=== PATIENT | female | born 1935 | race Asian ===

== ENCOUNTER 2020-04-26 14:57 | Inpatient (IN) | payer MEDICARE, MEDICAID ==
[~2020-04-26] VITALS: Ht 157.5 cm; Wt 63.7 kg
[2020-04-26 15:00] VITALS: BP 155/77
--- NOTE | 2020-04-26 15:09 | Emergency Room Report ---
History of Present Illness General Chief Complaint: Generalized Weakness Source: Patient, Family Member, EMS Present Illness HPI Patient presents with generalized weakness. This is been progressing over the last week to 2 weeks. She is not been eating well. She feels dehydrated and her mouth is dry. She takes medication for high blood pressure but denies any diabetes. She denies any fevers or chills. There is no nausea, vomiting or diarrhea. She denies pain but is unable to get about at her home. Family has been coming in to give her food but she is been refusing to eat. She denies cough or dysuria but says that she has problems voiding. She is not moved her bowels for several days. Granddaughter (Jennifer ) states appetite less 5 years after . Also unable to go to [employer] due to COVID. No sore throat, shortness of breath, joint pain, rashes, visual changes, dizziness, headache. Allergies: Coded Allergies: No Known Allergies (Unverified , 04/26/20) COVID-19 Screening Contact w/high risk pt: No Experienced COVID-19 symptoms?: No COVID-19 Testing performed SOAP SLABBER: No Patient History Past Medical History: see triage record Social History: Denies: smoking, alcohol use, drug use Social History Narrative lives by self. Family helps (GD = Jennifer) Reviewed Nursing Documentation: PMH: Agreed; PSxH: Agreed Nursing Documentation-PMH Past Medical History: No History, Except For Hx Hypertension: Yes Review of Systems All Other Systems: negative except mentioned in HPI Physical Exam Vital Signs Date Time Temp Pulse Resp B/P (MAP) Pulse Ox O2 Delivery O2 Flow Rate FiO2 04/26/20 14:53 97.3 83 18 155/77 (103) 98 Room Air Sp02 EP Interpretation: reviewed, normal General Appearance: well appearing, no apparent distress, GCS 15 Head: normocephalic, atraumatic Eyes: bilateral eye normal inspection, bilateral eye PERRL, bilateral eye EOMI ENT: normal pharynx, moist mucus membranes Neck: full range of motion, supple Respiratory: chest non-tender, lungs clear, normal breath sounds Cardiovascular #1: regular rate, rhythm, no edema Cardiovascular #2: 2+ radial (R) Gastrointestinal: normal inspection, normal bowel sounds, non tender, no mass, non-distended Genitourinary: no CVA tenderness Musculoskeletal: back normal, normal range of motion Neurologic: alert, supervisor photocomposition III-XII nml as tested, oriented - X2, DTRs symmetric, sensory intact, cerebellar normal, motor weakness - Generalized, speech normal Psychiatric: depressed affect Skin: no rash, warm/dry Medical Decision Making Diagnostic Impression: Primary Impression: UTI (urinary tract infection) Qualified Codes: N39.0 - Urinary tract infection, site not specified Additional Impressions: Failure to thrive Qualified Codes: R62.7 - Adult failure to thrive Dehydration Situational depression ER Course Patient presents with weakness and not eating. Differential includes sepsis, depression, electrolyte abnormality COVID-19, other occult infection, hypothyroidism amongst others. Evaluated EKG, chest x-ray, abdominal film and labs. Patient treated with normal saline bolus and IV hydration. 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 EKG no injury. Chest x-ray no infiltrates. CBC with low white count. Minimal anemia. CMP with elevated bilirubin and LDH. Lactate normal. TSH normal. Pyuria present on urinalysis. Rocephin given for UTI. Due to the complexity of this patient's disability the patient is admitted to [facility] for further evaluation. Discussed with admitting physician. Discussed with granddaughter. Laboratory Tests Test 04/26/20 15:20 04/26/20 15:45 04/26/20 16:29 Prothrombin Time 10.7 SEC (9.30-11.50) Prothrombin Time INR 1.0 (0.9-1.1) Activated Partial Thromboplast Time 19 SEC (23-33) L D-Dimer 0.58 mg/L FEU (0.00-0.49) H Sodium Level 139 MMOL/L (136-145) Potassium Level 3.7 MMOL/L (3.5-5.1) Chloride Level 107 MMOL/L (98-107) Carbon Dioxide Level 23 MMOL/L (21-32) Anion Gap 9 mmol/L (5-15) Blood Urea Nitrogen 9 mg/dL (7-18) Creatinine 0.7 MG/DL (0.55-1.30) Estimated Glomerular Filtration Rate > 60 mL/min (>60) Glucose Level 127 MG/DL (74-106) H Lactic Acid Level 0.90 mmol/L (0.4-2.0) Calcium Level 9.7 MG/DL (8.5-10.1) Magnesium Level 2.3 MG/DL (1.8-2.4) Ferritin 290 NG/ML (8-388) Total Bilirubin 1.7 MG/DL (0.2-1.0) H Direct Bilirubin 0.2 MG/DL (0.0-0.3) Aspartate Amino Transferase (AST) 44 U/L (15-37) H Alanine Aminotransferase (ALT) 24 U/L (12-78) Alkaline Phosphatase 49 U/L (46-116) Lactate Dehydrogenase 382 U/L (81-234) H Total Creatine Kinase 136 U/L (26-308) Troponin I 0.000 ng/mL (0.000-0.056) C-Reactive Protein, Quantitative < 0.4 mg/dL (0.00-0.90) Pro-B-Type Natriuretic Peptide 319 pg/mL (0-125) H Total Protein 8.4 G/DL (6.4-8.2) H Albumin 4.3 G/DL (3.4-5.0) Globulin 4.1 g/dL Albumin/Globulin Ratio 1.0 (1.0-2.7) Lipase 116 U/L (73-393) Thyroid Stimulating Hormone (TSH) 3.251 uiU/mL (0.358-3.740) Urine Color Pale yellow Urine Appearance Slightly cloudy Urine pH 7 (4.5-8.0) Urine Specific [place] 1.010 (1.005-1.035) Urine Protein 1+ (NEGATIVE) H Urine Glucose (UA) Negative (NEGATIVE) Urine Ketones Negative (NEGATIVE) Urine Blood 2+ (NEGATIVE) H Urine Nitrite Negative (NEGATIVE) Urine Bilirubin Negative (NEGATIVE) Urine Urobilinogen Normal MG/DL (0.0-1.0) Urine Leukocyte Esterase 3+ (NEGATIVE) H Urine RBC 0-2 /HPF (0 - 2) Urine WBC 10-15 /HPF (0 - 2) H Urine Squamous Epithelial Cells Occasional /LPF Urine Bacteria Occasional /HPF (NONE) White Blood Count 5.4 K/UL (4.8-10.8) Red Blood Count 3.72 M/UL (4.20-5.40) L Hemoglobin 12.2 G/DL (12.0-16.0) Hematocrit 36.4 % (37.0-47.0) L Mean Corpuscular Volume 98 FL (80-99) Mean Corpuscular Hemoglobin 32.9 PG (27.0-31.0) H Mean Corpuscular Hemoglobin Concent 33.6 G/DL (32.0-36.0) Red Cell Distribution Width 12.6 % (11.6-14.8) Platelet Count 142 K/UL (150-450) L Mean Platelet Volume 6.9 FL (6.5-10.1) Neutrophils (%) (Auto) 63.1 % (45.0-75.0) Lymphocytes (%) (Auto) 26.3 % (20.0-45.0) Monocytes (%) (Auto) 8.2 % (1.0-10.0) Eosinophils (%) (Auto) 1.2 % (0.0-3.0) Basophils (%) (Auto) 1.3 % (0.0-2.0) Erythrocyte Sedimentation Rate Pending Microbiology Date/Time Source Procedure Growth Status 04/26/20 15:20 Nasopharynx SARS-CoV-2 RdRp Gene Assay - Final Complete EKG Diagnostic Results Rate: normal Rhythm: NSR ST Segments: no acute changes - Nonspecific ST-T wave changes Rhythm Strip Diag. Results EP Interpretation: yes Rhythm: NSR, no PVC's, no ectopy Chest X-Ray Diagnostic Results Chest X-Ray Diagnostic Results : Chest X-Ray Ordered: Yes # of Views/Limited/Complete: 1 View Indication: Other EP Interpretation: Yes Interpretation: no consolidation, no effusion, no pneumothorax Impression: No acute disease Electronically Signed by: Electronically signed by Rolando Seaman MD Status: improved Disposition: ADMITTED INPATIENT Condition: Serious Rolando Seaman MD Apr 26, 2020 15:09
[2020-04-26] MEDS ORDERED: ATIVAN0.5 MG ORAL (15:23)
[2020-04-26] MEDS ORDERED: TRAZODONE HCL300 MG ORAL (15:23)
[2020-04-26 15:56] LABS: APPEARANCE,URINE SLIGHTLY CLOUDY; BILIRUBIN, URINE NEGATIVE (NEGATIVE); COLOR,URINE PALE YELLOW; GLUCOSE, URINE (UA) NEGATIVE (NEGATIVE); KETONES,URINE NEGATIVE (NEGATIVE); LEUKOCYTE ESTERASE ,URINE 3+ (NEGATIVE); NITRITE,URINE NEGATIVE (NEGATIVE); PH,URINE 7 (4.5-8.0); PROTEIN,URINE 1+ (NEGATIVE); UROBILINOGEN,URINE NORMAL MG/DL (0.0-1.0)
[2020-04-26 16:03] LABS: ANION GAP 9 mmol/L (5-15); BLOOD UREA NITROGEN 9 mg/dL (7-18); CALCIUM 9.7 MG/DL (8.5-10.1); CARBON DIOXIDE 23 MMOL/L (21-32); CHLORIDE 107 MMOL/L (98-107); CREATININE 0.7 MG/DL (0.55-1.30); POTASSIUM 3.7 MMOL/L (3.5-5.1); SODIUM 139 MMOL/L (136-145)
[2020-04-26 16:19] LABS: ALANINE AMINOTRANSFERASE 24 U/L (12-78); ALBUMIN 4.3 G/DL (3.4-5.0); ALKALINE PHOSPHATASE 49 U/L (46-116); ASPARTATE AMINO TRANSFERASE 44 U/L (15-37); BILIRUBIN,TOTAL 1.7 MG/DL (0.2-1.0); CREATINE KINASE 136 U/L (26-308); FERRITIN 290 NG/ML (8-388); LACTATE DEHYDROGENASE 382 U/L (81-234)
[2020-04-26 16:21] LABS: BILIRUBIN,DIRECT 0.2 MG/DL (0.0-0.3)
[2020-04-26 16:36] LABS: BASOPHILS % (AUTO) 1.3 % (0.0-2.0); EOSINOPHILS % (AUTO) 1.2 % (0.0-3.0); HEMATOCRIT 36.4 % (37.0-47.0); HEMOGLOBIN 12.2 G/DL (12.0-16.0); LYMPHOCYTES % (AUTO) 26.3 % (20.0-45.0); MEAN CORPUSCULAR VOLUME 98 FL (80-99); MONOCYTES % (AUTO) 8.2 % (1.0-10.0); NEUTROPHILS % (AUTO) 63.1 % (45.0-75.0); PLATELET COUNT 142 K/UL (150-450); RED BLOOD COUNT 3.72 M/UL (4.20-5.40); RED CELL DISTRIBUTION WIDTH 12.6 % (11.6-14.8); WHITE BLOOD COUNT 5.4 K/UL (4.8-10.8)
--- NOTE | 2020-04-26 16:39 | Diagnostic Imaging Report ---
EXAM: XR Chest, 1 View CLINICAL HISTORY: WEAK TECHNIQUE: Frontal view of the chest. COMPARISON: No relevant prior studies available. FINDINGS: Lungs: Mild accentuation of interstitial markings. No consolidation. Pleural space: Unremarkable. No pneumothorax. Heart: Large cardiomediastinal silhouette. Mediastinum: Large cardiomediastinal silhouette. Bones/joints: No acute fracture. IMPRESSION: Mild accentuation of interstitial markings. No consolidation.
[2020-04-26 17:00] VITALS: BP 152/78
[2020-04-26] MEDS ORDERED: cefTRIAXone 1 GM in NS 55 ML IVPB ONE (17:00)
--- NOTE | 2020-04-26 17:36 | Diagnostic Imaging Report ---
EXAM: CT Head Without Intravenous Contrast CLINICAL HISTORY: WEAK TECHNIQUE: Axial computed tomography images of the head/brain without intravenous contrast. CTDI is 53 mGy and DLP is 1072 mGy-cm. One or more of the following dose reduction techniques were used: automated exposure control, adjustment of the mA and/or kV according to patient size, use of iterative reconstruction technique. COMPARISON: No relevant prior studies available. FINDINGS: Brain: No intracranial hemorrhage or acute cortical infarct. Global parenchymal atrophy and chronic microvascular ischemic changes. Basal ganglia calcifications. Ventricles: Unremarkable. Bones/joints: Unremarkable. No fracture. Soft tissues: Unremarkable. Sinuses: Unremarkable as visualized. Mastoid air cells: Unremarkable as visualized. IMPRESSION: 1. No acute intracranial abnormality. 2. Global parenchymal atrophy and chronic microvascular ischemic changes.
[2020-04-26 18:00] VITALS: BP 150/60
[2020-04-26 20:00] VITALS: BP 143/62
[2020-04-26] MEDS: Heparin 5000 units/ml inj SUBQ SCH ×2 (21:00→21:52)
[2020-04-26] MEDS: D5 1/2NS 1,000 ML IV SCH (21:00)
[2020-04-27] VITALS: BP 100/64
[2020-04-27 04:00] VITALS: BP 132/81
[2020-04-27 07:55] LABS: BASOPHILS % (AUTO) 0.9 % (0.0-2.0); EOSINOPHILS % (AUTO) 2.5 % (0.0-3.0); HEMATOCRIT 36.2 % (37.0-47.0); HEMOGLOBIN 12.5 G/DL (12.0-16.0); LYMPHOCYTES % (AUTO) 40.3 % (20.0-45.0); MEAN CORPUSCULAR VOLUME 94 FL (80-99); MONOCYTES % (AUTO) 7.6 % (1.0-10.0); NEUTROPHILS % (AUTO) 48.6 % (45.0-75.0); PLATELET COUNT 151 K/UL (150-450); RED BLOOD COUNT 3.87 M/UL (4.20-5.40); RED CELL DISTRIBUTION WIDTH 11.9 % (11.6-14.8); WHITE BLOOD COUNT 4.3 K/UL (4.8-10.8)
[2020-04-27 08:00] VITALS: BP 150/58
[2020-04-27 08:27] LABS: ANION GAP 10 mmol/L (5-15); BLOOD UREA NITROGEN 6 mg/dL (7-18); CALCIUM 8.6 MG/DL (8.5-10.1); CARBON DIOXIDE 24 MMOL/L (21-32); CHLORIDE 108 MMOL/L (98-107); CREATININE 0.6 MG/DL (0.55-1.30); SODIUM 142 MMOL/L (136-145)
[2020-04-27] MEDS: Heparin 5000 units/ml inj SUBQ SCH ×2 (08:27→20:54)
[2020-04-27] MEDS ORDERED: TRAZODONE HCL50 MG ORAL (09:28)
[2020-04-27] MEDS ORDERED: ACETAMINOPHEN325 M1 ORAL (09:55)
[2020-04-27] MEDS ORDERED: VITAMIN D350 MC1 PO ×2 (09:55→11:31)
[2020-04-27] MEDS: D5 1/2NS 1,000 ML IV SCH (11:10)
[2020-04-27] MEDS ORDERED: MAGNESIUM OXID400 M2 PO (11:31)
[2020-04-27] MEDS ORDERED: TRIAMTERENE-HC1 EAC5 ORAL (11:31)
[2020-04-27] MEDS ORDERED: MYLANTA TONIGH355 ML PO (11:31)
[2020-04-27] MEDS ORDERED: ASPIRIN81 MG ORAL (11:31)
[2020-04-27] MEDS ORDERED: BELSOMRA15 MG PO (11:31)
[2020-04-27] MEDS ORDERED: URECHOLINE25 MG ORAL (11:31)
[2020-04-27] MEDS ORDERED: LOSARTAN POTASS50 MG ORAL (11:31)
[2020-04-27] MEDS ORDERED: NAMENDA10 MG ORAL (11:31)
[2020-04-27] MEDS ORDERED: MECLIZINE HCL12.5 MG ORAL (11:31)
[2020-04-27] MEDS ORDERED: ZOFRAN4 M3 ORAL (11:31)
[2020-04-27] MEDS ORDERED: BYSTOLIC2.5 MG ORAL (11:31)
[2020-04-27] MEDS ORDERED: ULORIC40 MG ORAL (11:31)
[2020-04-27] MEDS ORDERED: MINIPRESS1 MG PO (11:31)
[2020-04-27] MEDS ORDERED: AMITRIPTYLINE25 MG ORAL (11:31)
[2020-04-27] MEDS ORDERED: NAMZARIC 14 MG1 EACH PO (11:31)
[2020-04-27] MEDS ORDERED: LINZESS290 MCG PO (11:31)
[2020-04-27] MEDS ORDERED: ESOMEPRAZOLE MA40 MG PO (11:31)
[2020-04-27] MEDS ORDERED: FOSAMAX70 MG ORAL (11:31)
[2020-04-27] MEDS ORDERED: LEVOCETIRIZINE D5 MG ORAL (11:31)
[2020-04-27] MEDS ORDERED: AMLODIPINE BESY10 MG ORAL (11:31)
[2020-04-27] MEDS ORDERED: PAZEO2.5 ML OP (11:31)
[2020-04-27] MEDS ORDERED: CREON DR 36,001 EACH PO (11:31)
[2020-04-27] MEDS ORDERED: BACLOFEN10 MG ORAL (11:31)
[2020-04-27] MEDS ORDERED: VASCEPA1 GM PO (11:31)
[2020-04-27] MEDS ORDERED: ACYCLOVIR400 MG ORAL (11:31)
[2020-04-27] MEDS ORDERED: CRESTOR20 MG ORAL (11:31)
[2020-04-27] MEDS ORDERED: LORAZEPAM I2 MG/1 ML ORAL (11:31)
[2020-04-27] MEDS ORDERED: CATAPRES0.1 MG ORAL (11:31)
[2020-04-27] MEDS ORDERED: MEGESTROL ACETA40 MG PO (11:31)
[2020-04-27] MEDS ORDERED: LORazepam 0.5mg tab ORAL PRN (11:45)
[2020-04-27 12:00] VITALS: BP 155/65
[2020-04-27] MEDS: Bethanechol 25mg Tab ORAL SCH ×2 (12:22→18:36)
--- NOTE | 2020-04-27 13:00 | History and Physical Report ---
DATE OF ADMISSION: 04/26/2020 DATE AND TIME SEEN: 04/27/2020 at 10 a.m. CONSULTANTS: 1. Twin Flores MD. 2. Don Mercado MD. 3. Bjorn De La Cruz MD. CHIEF COMPLAINT: Failure to thrive, UTI. BRIEF HISTORY: This is an 85-year-old female, who lives at home, presented with above-mentioned diagnosis to [facility] and admitted to medical floor. Currently, calm in room, sleepy, not talking much. REVIEW OF SYSTEMS: Unavailable. PAST MEDICAL HISTORY: Hypertension. PAST SURGICAL HISTORY: Unknown. ALLERGIES: Denies. MEDICATIONS: Include heparin, clonidine, Tylenol, and ceftriaxone. SOCIAL HISTORY: Unable to obtain. PHYSICAL EXAMINATION: GENERAL: Sleeping in bed. Unable to assess orientation. VITAL SIGNS: Temperature 97 degrees, pulse 70, respirations 18, and blood pressure . CARDIOVASCULAR: No murmur. LUNGS: Distant and clear. ABDOMEN: Bowel sound positive. Nontender. Nondistended. EXTREMITIES: No cyanosis, clubbing, or edema. NEUROLOGIC: The patient moves all extremities, slightly weak. LABORATORY AND DIAGNOSTIC DATA: Labs at this time show white count 4.3, otherwise CBC is normal. BMP show potassium 3.0, chloride 108, glucose 160. AST 44, albumin 4.3. Urinalysis shows 2+ blood, 3+ leukocyte esterase. ASSESSMENT: 1. Failure to thrive. 2. Urinary tract infection. 3. Diabetes. 4. Hypertension. 5. Hypokalemia. PLAN: 1. Resume home medications. 2. Blood pressure and blood sugar control. 3. Dietary followup. 4. PT evaluation. 5. CBC and BMP in the morning. 6. . Dakota Calvin D.O. DR: CHEL JOB#: [id number] CC:
[2020-04-27] MEDS ORDERED: Varibar Honey 250ml MC PRN (13:30)
[2020-04-27] MEDS ORDERED: Varibar Nectar 240ml MC PRN (13:30)
[2020-04-27] MEDS ORDERED: Varibar Thin Liquid powder 148gm MC PRN (13:30)
[2020-04-27] MEDS ORDERED: Varibar Pudding 230ml MC PRN (13:30)
--- NOTE | 2020-04-27 13:40 | Consultation ---
History of Present Illness General Date patient seen: Apr 27, 2020 Chief Complaint: Generalized Weakness Present Illness HPI 85 yo F with hx of HTN presented to ED on 04/26/20 with 2 weeks of worsening generalized weakness and poor appetite; feels dehydrated and her mouth was dry Denied f/c, n/v/d,cough, dysuria Allergies: Coded Allergies: No Known Allergies (Unverified , 04/26/20) Medication History Scheduled Acyclovir* (Acyclovir*), 400 MG ORAL FOUR TIMES A DAY, (Reported) Alendronate Sodium* (Fosamax*), 70 MG ORAL ONCE A WEEK, (Reported) Amitriptyline HCl (Elavil*), 10 MG ORAL BEDTIME, (Reported) Amlodipine Besylate* (Amlodipine Besylate*), 10 MG ORAL DAILY, (Reported) Aspirin* (Aspirin*), 81 MG ORAL DAILY, (Reported) Baclofen* (Baclofen*), 10 MG ORAL PRN, (Reported) Bethanechol Chl (Bethanechol Chloride), 25 MG ORAL THREE TIMES A DAY, (Reported) Calcium Carb/Mag Hydrox/Simeth (Mylanta Tonight 800-270-80/10), 355 ML PO PRN, (Reported) Cholecalciferol (Vitamin D3) (Vitamin D3), 2 TAB PO DAILY, (Reported) Cholecalciferol (Vitamin D3) (Vitamin D3), 50 MCG PO DAILY, (Reported) Esomeprazole Magnesium (Esomeprazole Magnesium), 40 MG PO DAILY, (Reported) Febuxostat (Uloric), 40 MG ORAL DAILY, (Reported) Icosapent Ethyl (Vascepa), 1 GM PO BID, (Reported) Levocetirizine Dihydrochloride (Levocetirizine Dihydrochloride), 5 MG ORAL DAILY, (Reported) Linaclotide (Linzess), 290 MCG PO HS, (Reported) Lipase/Protease/Amylase (Creon Dr 36,000 Units Capsule), 1 EACH PO EVERY 8 HOURS, (Reported) Lorazepam (Lorazepam Intensol), 0.5 MG ORAL Q4HR, (Reported) Losartan Potassium* (Losartan Potassium*), 50 MG ORAL DAILY, (Reported) Magnesium Oxide (Magnesium Oxide), 400 MG PO BEDTIME, (Reported) Meclizine Hcl* (Meclizine*), 12.5 MG ORAL THREE TIMES A DAY, (Reported) Megestrol Acetate (Megestrol Acetate), 40 MG PO DAILY, (Reported) Memantine Hcl* (Namenda*), 10 MG ORAL DAILY, (Reported) Nebivolol Hcl* (Bystolic*), 5 MG ORAL DAILY, (Reported) Olopatadine HCl (Pazeo), 2.5 ML OP DAILY, (Reported) Ondansetron* (Zofran*), 4 MG ORAL DAILY, (Reported) Prazosin Hcl* (Minipress*), 1 MG PO BEDTIME, (Reported) Rosuvastatin Calcium* (Crestor*), 20 MG ORAL HS, (Reported) Suvorexant (Belsomra), 15 MG PO HS, (Reported) Trazodone Hcl* (Desyrel*), 50 MG ORAL BEDTIME, (Reported) Triamterene/Hydrochlorothiazide* (Dyazide 37.5-25 Mg Tab*), 1 TAB ORAL DAILY, (Reported) Scheduled PRN Acetaminophen* (Acetaminophen 325MG Tablet*), 325 MG ORAL Q4H PRN for Temp >100.5, (Reported) Clonidine Hcl* (Catapres*), 0.1 MG ORAL Q12HR PRN for For High Blood Pressure, (Reported) Lorazepam* (Ativan*), 0.5 MG ORAL Q8HR PRN for For Anxiety, (Reported) Miscellaneous Medications Memantine HCl/Donepezil HCl (Namzaric 14 mg-10 mg Capsule), 1 EACH PO, (Reported) Discontinued Medications Trazodone Hcl (Trazodone Hcl), Unknown Dose ORAL BEDTIME, (Reported) Discontinued Reason: Prescription changed Patient History Healthcare decision maker Resuscitation status Advanced Directive on File Patient History Narrative PMhx: as above Shx: Denies: smoking, alcohol use, drug use Fhx: non contributory Review of Systems All Other Systems: negative except mentioned in HPI Physical Exam Physical Exam Narrative GENERAL: Sleeping in bed. Unable to assess orientation. CARDIOVASCULAR: No murmur. LUNGS: Distant and clear. ABDOMEN: Bowel sound positive. Nontender. Nondistended. EXTREMITIES: No cyanosis, clubbing, or edema. NEUROLOGIC: The patient moves all extremities, slightly weak. Last 24 Hour Vital Signs Date Time Temp Pulse Resp B/P (MAP) Pulse Ox O2 Delivery O2 Flow Rate FiO2 04/27/20 12:00 97.9 75 18 155/65 (95) 96 04/27/20 12:00 68 04/27/20 09:00 Room Air 04/27/20 08:00 97.7 70 18 150/58 (88) 94 04/27/20 08:00 72 04/27/20 04:00 61 04/27/20 04:00 98.2 64 18 132/81 (98) 95 04/27/20 02:00 97.2 04/27/20 00:00 97.7 73 18 100/64 (76) 94 04/27/20 00:00 66 04/26/20 20:37 69 04/26/20 20:25 Room Air 04/26/20 20:00 97.2 68 18 143/62 (89) 94 04/26/20 18:01 Room Air 04/26/20 18:00 97.9 78 17 150/60 (90) 96 04/26/20 17:45 97.8 81 19 152/78 99 Room Air 04/26/20 17:00 97.8 81 19 152/78 99 Room Air 04/26/20 15:00 97.3 83 18 155/77 98 Room Air 04/26/20 15:00 83 18 Room Air 04/26/20 14:53 97.3 83 18 155/77 (103) 98 Room Air Intake and Output 04/26/20 04/27/20 19:00 07:00 Intake Total 100 ml 780 ml Balance 100 ml 780 ml Intake Oral 100 ml 300 ml IV Total 480 ml # Voids 2 Laboratory Tests Test 04/26/20 15:20 04/26/20 15:45 04/26/20 16:29 04/27/20 07:24 Prothrombin Time 10.7 SEC (9.30-11.50) Prothromb Time International Ratio 1.0 (0.9-1.1) Activated Partial Thromboplast Time 19 SEC (23-33) L D-Dimer 0.58 mg/L FEU (0.00-0.49) H Sodium Level 139 MMOL/L (136-145) 142 MMOL/L (136-145) Potassium Level 3.7 MMOL/L (3.5-5.1) 3.0 MMOL/L (3.5-5.1) L Chloride Level 107 MMOL/L (98-107) 108 MMOL/L (98-107) H Carbon Dioxide Level 23 MMOL/L (21-32) 24 MMOL/L (21-32) Anion Gap 9 mmol/L (5-15) 10 mmol/L (5-15) Blood Urea Nitrogen 9 mg/dL (7-18) 6 mg/dL (7-18) L Creatinine 0.7 MG/DL (0.55-1.30) 0.6 MG/DL (0.55-1.30) Estimat Glomerular Filtration Rate > 60 mL/min (>60) > 60 mL/min (>60) Glucose Level 127 MG/DL (74-106) H 160 MG/DL (74-106) H Lactic Acid Level 0.90 mmol/L (0.4-2.0) Calcium Level 9.7 MG/DL (8.5-10.1) 8.6 MG/DL (8.5-10.1) Magnesium Level 2.3 MG/DL (1.8-2.4) Ferritin 290 NG/ML (8-388) Total Bilirubin 1.7 MG/DL (0.2-1.0) H Direct Bilirubin 0.2 MG/DL (0.0-0.3) Aspartate Amino Transf (AST/SGOT) 44 U/L (15-37) H Alanine Aminotransferase (ALT/SGPT) 24 U/L (12-78) Alkaline Phosphatase 49 U/L (46-116) Lactate Dehydrogenase 382 U/L (81-234) H Total Creatine Kinase 136 U/L (26-308) Troponin I 0.000 ng/mL (0.000-0.056) C-Reactive Protein, Quantitative < 0.4 mg/dL (0.00-0.90) Pro-B-Type Natriuretic Peptide 319 pg/mL (0-125) H Total Protein 8.4 G/DL (6.4-8.2) H Albumin 4.3 G/DL (3.4-5.0) Globulin 4.1 g/dL Albumin/Globulin Ratio 1.0 (1.0-2.7) Lipase 116 U/L (73-393) Thyroid Stimulating Hormone (TSH) 3.251 uiU/mL (0.358-3.740) Urine Color Pale yellow Urine Appearance Slightly cloudy Urine pH 7 (4.5-8.0) Urine Specific [place] 1.010 (1.005-1.035) Urine Protein 1+ (NEGATIVE) H Urine Glucose (UA) Negative (NEGATIVE) Urine Ketones Negative (NEGATIVE) Urine Blood 2+ (NEGATIVE) H Urine Nitrite Negative (NEGATIVE) Urine Bilirubin Negative (NEGATIVE) Urine Urobilinogen Normal MG/DL (0.0-1.0) Urine Leukocyte Esterase 3+ (NEGATIVE) H Urine RBC 0-2 /HPF (0 - 2) Urine WBC 10-15 /HPF (0 - 2) H Urine Squamous Epithelial Cells Occasional /LPF Urine Bacteria Occasional /HPF (NONE) White Blood Count 5.4 K/UL (4.8-10.8) 4.3 K/UL (4.8-10.8) L Red Blood Count 3.72 M/UL (4.20-5.40) L 3.87 M/UL (4.20-5.40) L Hemoglobin 12.2 G/DL (12.0-16.0) 12.5 G/DL (12.0-16.0) Hematocrit 36.4 % (37.0-47.0) L 36.2 % (37.0-47.0) L Mean Corpuscular Volume 98 FL (80-99) 94 FL (80-99) Mean Corpuscular Hemoglobin 32.9 PG (27.0-31.0) H 32.3 PG (27.0-31.0) H Mean Corpuscular Hemoglobin Concent 33.6 G/DL (32.0-36.0) 34.5 G/DL (32.0-36.0) Red Cell Distribution Width 12.6 % (11.6-14.8) 11.9 % (11.6-14.8) Platelet Count 142 K/UL (150-450) L 151 K/UL (150-450) Mean Platelet Volume 6.9 FL (6.5-10.1) 6.3 FL (6.5-10.1) L Neutrophils (%) (Auto) 63.1 % (45.0-75.0) 48.6 % (45.0-75.0) Lymphocytes (%) (Auto) 26.3 % (20.0-45.0) 40.3 % (20.0-45.0) Monocytes (%) (Auto) 8.2 % (1.0-10.0) 7.6 % (1.0-10.0) Eosinophils (%) (Auto) 1.2 % (0.0-3.0) 2.5 % (0.0-3.0) Basophils (%) (Auto) 1.3 % (0.0-2.0) 0.9 % (0.0-2.0) Erythrocyte Sedimentation Rate 43 MM/HR (0-30) H Microbiology Date/Time Source Procedure Growth Status 04/26/20 15:45 Urine,Clean Catch Urine Culture - Preliminary Gram Negative Binu Resulted 04/26/20 15:20 Nasopharynx SARS-CoV-2 RdRp Gene Assay - Final Complete Height (Feet): 5 Height (Inches): 2.00 Weight (Pounds): 115 Medications Current Medications Medications (Trade) Dose Ordered Sig/Carl Route PRN Reason Start Time Stop Time Status Last Admin Dose Admin Acetaminophen (Tylenol) 325 mg Q4H PRN ORAL Temp >100.5 04/27/20 11:45 05/27/20 11:44 Acetaminophen (Tylenol) 650 mg Q4H PRN ORAL Mild Pain (Pain Scale 1-3) 04/26/20 18:30 05/26/20 18:29 04/27/20 01:30 Alendronate Sodium (Fosamax) 70 mg ONCE A WEEK ORAL 04/28/20 06:30 05/28/20 06:29 Amitriptyline HCl (Elavil) 10 mg BEDTIME ORAL 04/27/20 21:00 05/27/20 20:59 Amlodipine Besylate (Norvasc) 10 mg DAILY ORAL 04/28/20 09:00 05/28/20 08:59 Amylase/Lipase/ Protease (Jarret JC 36,000 units cap) 1 ea BEFORE MEALS ORAL 04/27/20 16:30 07/26/20 16:29 Aspirin (ASA) 81 mg DAILY ORAL 04/28/20 09:00 06/12/20 08:59 Baclofen (Lioresal) 10 mg DAILYPRN PRN ORAL Muscle Spasm 04/27/20 12:15 05/27/20 12:14 Bethanechol Chloride (Urecholine) 25 mg THREE TIMES A DAY ORAL 04/27/20 13:00 05/27/20 12:59 04/27/20 12:22 Ceftriaxone Sodium 1 gm/ Dextrose 55 ml @ 110 mls/hr Q24H IVPB 04/27/20 17:00 05/04/20 16:59 Clonidine HCl (Catapres Tab) 0.1 mg QID PRN ORAL For High Blood Pressure 04/26/20 19:30 07/25/20 19:29 Dextrose/Sodium Chloride 1,000 ml @ 60 mls/hr [id number] IV 04/26/20 18:30 05/26/20 18:29 04/27/20 11:10 Heparin Sodium (Porcine) (Heparin 5000 units/ml) 5,000 units EVERY 12 HOURS SUBQ 04/26/20 21:00 06/10/20 20:59 04/26/20 21:52 Linaclotide (Linzess) 290 mcg DAILY ORAL 04/27/20 14:00 07/26/20 13:59 Lorazepam (Ativan) 0.5 mg Q8H PRN ORAL For Anxiety 04/27/20 11:45 05/04/20 11:44 Losartan Potassium (Cozaar) 50 mg DAILY ORAL 04/28/20 09:00 05/28/20 08:59 Magnesium Oxide (Mag-Ox 400mg) 400 mg BEDTIME ORAL 04/27/20 21:00 05/27/20 20:59 Megestrol Acetate (Megace) 40 mg DAILY ORAL 04/28/20 09:00 05/03/20 08:59 Memantine (Namenda) 10 mg DAILY ORAL 04/28/20 09:00 05/28/20 08:59 Nebivolol (Bystolic) 5 mg DAILY ORAL 04/28/20 09:00 05/28/20 08:59 Ondansetron HCl (Zofran) 4 mg DAILY ORAL 04/28/20 09:00 05/28/20 08:59 Prazosin HCl (Minipress) 1 mg BEDTIME ORAL 04/27/20 21:00 05/27/20 20:59 Trazodone HCl (Desyrel) 50 mg BEDTIME ORAL 04/27/20 21:00 05/27/20 20:59 Triamterene/HCTZ (Dyazide) 1 cap DAILY ORAL 04/28/20 09:00 05/28/20 08:59 Assessment/Plan Assessment/Plan: Abx: Ceftriaxone 04/26- Assessment: COVID19 neg x1 (04/26 rapid COVID PCR neg) -04/26 CXR: Mild accentuation of interstitial markings. No consolidation. Pyuria/bacteriuria- ?UTI -u/a wbc 10-25, nit neg, leuk +3; ucx <10k GNR Afebrile No leukocytosis FTT Generalized weakness -CT head: No acute intracranial abnormality. Global parenchymal atrophy and chronic microvascular ischemic changes. HTN Plan: -Continue empiriC Ceftriaxone #2/3 -f/u cx -Monitor CBC/CMP, temperatures Thank you for consulting [facility]. Will continue to follow along with you. Discussed gilda UNDERWOOD. Bozena Mosley M.D. Apr 27, 2020 13:40
--- NOTE | 2020-04-27 13:45 | Consultation ---
DATE OF CONSULTATION: 04/27/2020 CHIEF COMPLAINT: Failure to thrive. HISTORY OF PRESENT ILLNESS: Most of history per chart. The patient is not very good to communicate, comes from [facility] with mainly failure to thrive. Since admission, the patient was found to have a urinary tract infection. The patient is apparently not bed-bounded, walking around the hospital. PAST MEDICAL HISTORY: Hypertension. ALLERGIES: No known drug allergies. MEDICATIONS: Please see medication reconciliation list. SOCIAL HISTORY: The patient denies any recent tobacco, alcohol, or drug abuse. FAMILY HISTORY: Noncontributory. REVIEW OF SYSTEMS: Limited. PHYSICAL EXAMINATION: VITAL SIGNS: Temperature 97.7, pulse 70, respirations 18, blood pressure is . HEENT: Normocephalic and atraumatic. Sclerae anicteric. NECK: Supple. No evidence of obvious lymphadenopathy. CARDIOVASCULAR: Regular rate and rhythm. Plus S1 and S2. LUNGS: Decreased breath sounds bilaterally based on the supine exam. ABDOMEN: Soft and nontender. No rebound. No guarding. No peritoneal sign. EXTREMITIES: No cyanosis, no clubbing, no edema. LABORATORY DATA: White count 4.3, hemoglobin 12, hematocrit 36, platelet count 151,000. ASSESSMENT AND PLAN: The patient is an 85-year-old [facility] patient with UTI and failure to thrive. Plan to treat UTI with ceftriaxone. Order swallow evaluation. Calorie count. Consider feeding tube if needed. I want to thank, Dr. Dakota Calvin for this kind referral. Bjorn De La Cruz M.D. DR: Dale JOB#: [id number] CC: Dakota Calvin D.O.
[2020-04-27 15:58] VITALS: BP 153/59
[2020-04-27] MEDS: Creon DR 36,000 units cap ORAL SCH (16:28)
[2020-04-27] MEDS: cefTRIAXone 1 GM in D5W 55 ML IVPB SCH (16:29)
--- NOTE | 2020-04-27 16:29 | Consultation ---
Consult Note Consult Note I am asked to evaluate the patient at the request of Dr. Calvin fluid and electrolyte management Emergency room note: Patient presents with generalized weakness. This is been progressing over the last week to 2 weeks. She is not been eating well. She feels dehydrated and her mouth is dry. She takes medication for high blood pressure but denies any diabetes. She denies any fevers or chills. There is no nausea, vomiting or diarrhea. She denies pain but is unable to get about at her home. Family has been coming in to give her food but she is been refusing to eat. She denies cough or dysuria but says that she has problems voiding. She is not moved her bowels for several days. Granddaughter (Jennifer ) states appetite less 5 years after . Also unable to go to [facility] due to COVID. Allergies: No Known Allergies (Unverified , 04/26/20) COVID-19 Screening Contact w/high risk pt: No Experienced COVID-19 symptoms?: No COVID-19 Testing performed TYPE MAPPER: No Past Medical History: No History, Except For Hx Hypertension: Yes Vital Signs Date Time Temp Pulse Resp B/P (MAP) Pulse Ox O2 Delivery O2 Flow Rate FiO2 04/26/20 14:53 97.3 83 18 155/77 (103) 98 Room Air GENERAL: Sleeping in bed. Unable to assess orientation. CARDIOVASCULAR: No murmur. LUNGS: Distant and clear. ABDOMEN: Bowel sound positive. Nontender. Nondistended. EXTREMITIES: No cyanosis, clubbing, or edema. NEUROLOGIC: The patient moves all extremities, slightly weak. . Assessment/Plan Imp: Dehydration, hypokalemia UTI Failure to thrive History of diabetes mellitus History of hypertension SUgg: Slow hydration Adjust blood pressure medication with proper parameters Potassium supplement Monitor electrolytes Per consultants Maximilian Guillen MD Apr 27, 2020 16:29
[2020-04-27] MEDS: D5 1/2NS w/KCl 40meq 1000ml 1,000 ML IV SCH (18:35)
[2020-04-27] MEDS: Docusate 100mg cap ORAL SCH (18:35)
[2020-04-27 20:00] VITALS: BP 140/56
[2020-04-27] MEDS: TraZODone 50mg tab ORAL SCH (20:52)
[2020-04-27] MEDS ORDERED: Magnesium Oxide 400mg tab ORAL SCH (21:00)
[2020-04-28] VITALS: BP 143/58
[2020-04-28 04:00] VITALS: BP 136/60
[2020-04-28] MEDS: Creon DR 36,000 units cap ORAL SCH ×3 (06:16→16:30)
[2020-04-28 07:09] LABS: BASOPHILS % (AUTO) 1.3 % (0.0-2.0); HEMATOCRIT 34.9 % (37.0-47.0); HEMOGLOBIN 11.9 G/DL (12.0-16.0); LYMPHOCYTES % (AUTO) 41.3 % (20.0-45.0); MEAN CORPUSCULAR VOLUME 94 FL (80-99); MONOCYTES % (AUTO) 8.9 % (1.0-10.0); NEUTROPHILS % (AUTO) 45.4 % (45.0-75.0); PLATELET COUNT 153 K/UL (150-450); RED CELL DISTRIBUTION WIDTH 12.1 % (11.6-14.8); WHITE BLOOD COUNT 4.9 K/UL (4.8-10.8)
[2020-04-28 08:00] VITALS: BP 159/75
[2020-04-28 08:15] LABS: ALANINE AMINOTRANSFERASE 21 U/L (12-78); ALBUMIN 3.6 G/DL (3.4-5.0); ALBUMIN/GLOBULIN RATIO 1.1 (1.0-2.7); ALKALINE PHOSPHATASE 46 U/L (46-116); ANION GAP 12 mmol/L (5-15); ASPARTATE AMINO TRANSFERASE 23 U/L (15-37); BILIRUBIN,TOTAL 1.1 MG/DL (0.2-1.0); BLOOD UREA NITROGEN 7 mg/dL (7-18); CALCIUM 8.7 MG/DL (8.5-10.1); CARBON DIOXIDE 21 MMOL/L (21-32); CHLORIDE 111 MMOL/L (98-107); CREATININE 0.6 MG/DL (0.55-1.30); SODIUM 143 MMOL/L (136-145)
[2020-04-28 08:19] LABS: BILIRUBIN,DIRECT 0.2 MG/DL (0.0-0.3)
[2020-04-28 08:20] LABS: CHOLESTEROL 138 MG/DL (< 200); HDL CHOLESTEROL 40 MG/DL (40-60); TRIGLYCERIDES 115 MG/DL (30-150)
[2020-04-28 08:23] LABS: GAMMA GLUTAMYL TRANSPEPTIDASE 30 U/L (5-85)
[2020-04-28] MEDS ORDERED: Triamterene/Hctz 37.5/25 cap ORAL SCH (09:00)
[2020-04-28] MEDS ORDERED: Bystolic 2.5mg Tab ORAL SCH (09:00)
[2020-04-28] MEDS: Heparin 5000 units/ml inj SUBQ SCH ×2 (09:00→20:41)
--- NOTE | 2020-04-28 09:16 | General Progress Note ---
Subjective ROS Limited/Unobtainable: No Allergies: Coded Allergies: No Known Allergies (Unverified , 04/26/20) Objective Last 24 Hour Vital Signs Date Time Temp Pulse Resp B/P (MAP) Pulse Ox O2 Delivery O2 Flow Rate FiO2 04/28/20 08:00 97.8 77 17 159/75 (103) 96 04/28/20 04:00 97.5 61 18 136/60 (85) 97 04/28/20 04:00 62 04/28/20 00:00 60 04/28/20 00:00 96.8 63 18 143/58 (86) 95 04/27/20 21:00 Room Air 04/27/20 20:00 65 04/27/20 20:00 97.9 64 17 140/56 (84) 95 04/27/20 16:00 83 04/27/20 15:58 97.5 71 18 153/59 (90) 96 04/27/20 12:00 97.9 75 18 155/65 (95) 96 04/27/20 12:00 68 Intake and Output 04/27/20 04/28/20 19:00 07:00 Intake Total 680.8 ml 680 ml Balance 680.8 ml 680 ml Intake Oral 610 ml 130 ml IV Total 70.8 ml 550 ml # Voids 5 1 Laboratory Tests 04/28/20 06:22: White Blood Count 4.9, Red Blood Count 3.70L, Hemoglobin 11.9L, Hematocrit 34.9L , Mean Corpuscular Volume 94, Mean Corpuscular Hemoglobin 32.1H, Mean Corpuscu lar Hemoglobin Concent 34.0, Red Cell Distribution Width 12.1, Platelet Count 153, Mean Platelet Volume 6.0L, Neutrophils (%) (Auto) 45.4, Lymphocytes (%) (Auto) 41.3, Monocytes (%) (Auto) 8.9, Eosinophils (%) (Auto) 3.0, Basophils (%) (Auto) 1.3, Sodium Level 143, Potassium Level 4.0, Chloride Level 111H, Carbon Dioxide Level 21, Anion Gap 12, Blood Urea Nitrogen 7, Creatinine 0.6, Estimat Glomerular Filtration Rate > 60, Glucose Level 106, Hemoglobin A1c 5.7, Uric Acid 2.8, Calcium Level 8.7, Phosphorus Level 3.0, Magnesium Level 2.0, Total Bilirubin 1.1H, Direct Bilirubin 0.2, Gamma Glutamyl Transpeptidase 30, Aspartate Amino Transf (AST/SGOT) 23, Alanine Aminotransferase (ALT/SGPT) 21, Alkaline Phosphatase 46, C-Reactive Protein, Quantitative < 0.4, Pro-B-Type Natriuretic Peptide 150H, Total Protein 6.9, Albumin 3.6, Globulin 3.3, Albumin/Globulin Ratio 1.1, Triglycerides Level 115, Cholesterol Level 138, LDL Cholesterol 62, HDL Cholesterol 40, Cholesterol/HDL Ratio 3.5, Vitamin B12 Level 502, Folate 10.5, Thyroid Stimulating Hormone (TSH) 3.415, Free Thyroxine 1.34 Height (Feet): 5 Height (Inches): 2.00 Weight (Pounds): 115 General Appearance: alert EENT: PERRL/EOMI Neck: supple Cardiovascular: normal rate Respiratory/Chest: accessory muscle use Abdomen: normal bowel sounds, non tender, soft Extremities: non-tender Assessment/Plan Problem List: (1) Failure to thrive SNOMED: 09826003 Qualifiers: Qualified Codes: R62.7 - Adult failure to thrive (2) UTI (urinary tract infection) ICD Codes: N39.0 - Urinary tract infection, site not specified SNOMED: 74899854 Qualifiers: Qualified Codes: N39.0 - Urinary tract infection, site not specified (3) Dehydration ICD Codes: E86.0 - Dehydration SNOMED: 98835671 Assessment/Plan: passed swallow eval fu calorie count abx will fu Bjorn De La Cruz MD Apr 28, 2020 09:16
[2020-04-28] MEDS: Aspirin Baby 81mg ORAL SCH (09:35)
[2020-04-28] MEDS: Bethanechol 25mg Tab ORAL SCH ×3 (09:35→17:33)
[2020-04-28] MEDS: Docusate 100mg cap ORAL SCH ×3 (09:35→17:33)
[2020-04-28] MEDS: Losartan 50mg tab ORAL SCH (09:35)
[2020-04-28] MEDS: Memantine 10mg tab ORAL SCH (09:36)
[2020-04-28 11:31] VITALS: BP 144/60
[2020-04-28] MEDS: D5 1/2NS w/KCl 40meq 1000ml 1,000 ML IV SCH (13:24)
--- NOTE | 2020-04-28 13:30 | General Progress Note ---
Subjective Constitutional: Reports: weakness Allergies: Coded Allergies: No Known Allergies (Unverified , 04/26/20) All Systems: reviewed and negative except above Subjective calm in bed Objective Last 24 Hour Vital Signs Date Time Temp Pulse Resp B/P (MAP) Pulse Ox O2 Delivery O2 Flow Rate FiO2 04/28/20 12:00 64 04/28/20 11:31 97.1 67 17 144/60 (88) 95 04/28/20 10:15 76 04/28/20 09:36 77 159/75 04/28/20 09:36 159/75 04/28/20 09:35 159/75 04/28/20 09:00 Room Air 04/28/20 08:00 79 04/28/20 08:00 97.8 77 17 159/75 (103) 96 04/28/20 04:00 97.5 61 18 136/60 (85) 97 04/28/20 04:00 62 04/28/20 00:00 60 04/28/20 00:00 96.8 63 18 143/58 (86) 95 04/27/20 21:00 Room Air 04/27/20 20:00 65 04/27/20 20:00 97.9 64 17 140/56 (84) 95 04/27/20 16:00 83 04/27/20 15:58 97.5 71 18 153/59 (90) 96 Intake and Output 04/27/20 04/28/20 19:00 07:00 Intake Total 680.8 ml 680 ml Balance 680.8 ml 680 ml Intake Oral 610 ml 130 ml IV Total 70.8 ml 550 ml # Voids 5 1 Laboratory Tests 04/28/20 06:22: White Blood Count 4.9, Red Blood Count 3.70L, Hemoglobin 11.9L, Hematocrit 34.9L , Mean Corpuscular Volume 94, Mean Corpuscular Hemoglobin 32.1H, Mean Corpuscular Hemoglobin Concent 34.0, Red Cell Distribution Width 12.1, Platelet Count 153, Mean Platelet Volume 6.0L, Neutrophils (%) (Auto) 45.4, Lymphocytes (%) (Auto) 41.3, Monocytes (%) (Auto) 8.9, Eosinophils (%) (Auto) 3.0, Basophils (%) (Auto) 1.3, Sodium Level 143, Potassium Level 4.0, Chloride Level 111H, Carbon Dioxide Level 21, Anion Gap 12, Blood Urea Nitrogen 7, Creatinine 0.6, Estimat Glomerular Filtration Rate > 60, Glucose Level 106, Hemoglobin A1c 5.7, Uric Acid 2.8, Calcium Level 8.7, Phosphorus Level 3.0, Magnesium Level 2.0, Total Bilirubin 1.1H, Direct Bilirubin 0.2, Gamma Glutamyl Transpeptidase 30, Aspartate Amino Transf (AST/SGOT) 23, Alanine Aminotransferase (ALT/SGPT) 21, Alkaline Phosphatase 46, C-Reactive Protein, Quantitative < 0.4, Pro-B-Type Natriuretic Peptide 150H, Total Protein 6.9, Albumin 3.6, Globulin 3.3, Albumin/Globulin Ratio 1.1, Triglycerides Level 115, Cholesterol Level 138, LDL Cholesterol 62, HDL Cholesterol 40, Cholesterol/HDL Ratio 3.5, Vitamin B12 Level 502, Folate 10.5, Thyroid Stimulating Hormone (TSH) 3.415, Free Thyroxine 1.34 Height (Feet): 5 Height (Inches): 2.00 Weight (Pounds): 115 General Appearance: lethargic EENT: normal ENT inspection Neck: normal alignment Cardiovascular: normal peripheral pulses, normal rate, regular rhythm Respiratory/Chest: chest wall non-tender, lungs clear, normal breath sounds Abdomen: normal bowel sounds, non tender, soft Extremities: normal inspection Edema: no edema noted Arm (L), no edema noted Arm (R), no edema noted Leg (L), no edema noted Leg (R), no edema noted Pedal (L), no edema noted Pedal (R), no edema noted Generalized Neurologic: motor weakness Skin: normal pigmentation, warm/dry Assessment/Plan Problem List: (1) HTN (hypertension) ICD Codes: I10 - Essential (primary) hypertension SNOMED: 93326528 (2) Diabetes ICD Codes: E11.9 - Type 2 diabetes mellitus without complications SNOMED: 54755885 (3) Junctional rhythm ICD Codes: I49.8 - Other specified cardiac arrhythmias SNOMED: 91409643 (4) Dehydration ICD Codes: E86.0 - Dehydration SNOMED: 69080614 (5) Failure to thrive SNOMED: 83306165 Qualifiers: Qualified Codes: R62.7 - Adult failure to thrive (6) UTI (urinary tract infection) ICD Codes: N39.0 - Urinary tract infection, site not specified SNOMED: 10143380 Qualifiers: Qualified Codes: N39.0 - Urinary tract infection, site not specified Status: unchanged Assessment/Plan: pt diet abx cardio eval cbc bmp am aru Dakota Heller DO Apr 28, 2020 13:30
--- NOTE | 2020-04-28 14:26 | Cardiac Electrophysiology PN ---
Subjective Subjective [id number] Objective Last 24 Hour Vital Signs Date Time Temp Pulse Resp B/P (MAP) Pulse Ox O2 Delivery O2 Flow Rate FiO2 04/28/20 12:00 64 04/28/20 11:31 97.1 67 17 144/60 (88) 95 04/28/20 10:15 76 04/28/20 09:36 77 159/75 04/28/20 09:36 159/75 04/28/20 09:35 159/75 04/28/20 09:00 Room Air 04/28/20 08:00 79 04/28/20 08:00 97.8 77 17 159/75 (103) 96 04/28/20 04:00 97.5 61 18 136/60 (85) 97 04/28/20 04:00 62 04/28/20 00:00 60 04/28/20 00:00 96.8 63 18 143/58 (86) 95 04/27/20 21:00 Room Air 04/27/20 20:00 65 04/27/20 20:00 97.9 64 17 140/56 (84) 95 04/27/20 16:00 83 04/27/20 15:58 97.5 71 18 153/59 (90) 96 Intake and Output 04/27/20 04/28/20 19:00 07:00 Intake Total 680.8 ml 680 ml Balance 680.8 ml 680 ml Intake Oral 610 ml 130 ml IV Total 70.8 ml 550 ml # Voids 5 1 Laboratory Tests Test 04/28/20 06:22 White Blood Count 4.9 K/UL (4.8-10.8) Red Blood Count 3.70 M/UL (4.20-5.40) L Hemoglobin 11.9 G/DL (12.0-16.0) L Hematocrit 34.9 % (37.0-47.0) L Mean Corpuscular Volume 94 FL (80-99) Mean Corpuscular Hemoglobin 32.1 PG (27.0-31.0) H Mean Corpuscular Hemoglobin Concent 34.0 G/DL (32.0-36.0) Red Cell Distribution Width 12.1 % (11.6-14.8) Platelet Count 153 K/UL (150-450) Mean Platelet Volume 6.0 FL (6.5-10.1) L Neutrophils (%) (Auto) 45.4 % (45.0-75.0) Lymphocytes (%) (Auto) 41.3 % (20.0-45.0) Monocytes (%) (Auto) 8.9 % (1.0-10.0) Eosinophils (%) (Auto) 3.0 % (0.0-3.0) Basophils (%) (Auto) 1.3 % (0.0-2.0) Sodium Level 143 MMOL/L (136-145) Potassium Level 4.0 MMOL/L (3.5-5.1) Chloride Level 111 MMOL/L (98-107) H Carbon Dioxide Level 21 MMOL/L (21-32) Anion Gap 12 mmol/L (5-15) Blood Urea Nitrogen 7 mg/dL (7-18) Creatinine 0.6 MG/DL (0.55-1.30) Estimat Glomerular Filtration Rate > 60 mL/min (>60) Glucose Level 106 MG/DL (74-106) Hemoglobin A1c 5.7 % (4.3-6.0) Uric Acid 2.8 MG/DL (2.6-7.2) Calcium Level 8.7 MG/DL (8.5-10.1) Phosphorus Level 3.0 MG/DL (2.5-4.9) Magnesium Level 2.0 MG/DL (1.8-2.4) Total Bilirubin 1.1 MG/DL (0.2-1.0) H Direct Bilirubin 0.2 MG/DL (0.0-0.3) Gamma Glutamyl Transpeptidase 30 U/L (5-85) Aspartate Amino Transf (AST/SGOT) 23 U/L (15-37) Alanine Aminotransferase (ALT/SGPT) 21 U/L (12-78) Alkaline Phosphatase 46 U/L (46-116) C-Reactive Protein, Quantitative < 0.4 mg/dL (0.00-0.90) Pro-B-Type Natriuretic Peptide 150 pg/mL (0-125) H Total Protein 6.9 G/DL (6.4-8.2) Albumin 3.6 G/DL (3.4-5.0) Globulin 3.3 g/dL Albumin/Globulin Ratio 1.1 (1.0-2.7) Triglycerides Level 115 MG/DL (30-150) Cholesterol Level 138 MG/DL (< 200) LDL Cholesterol 62 mg/dL (<100) HDL Cholesterol 40 MG/DL (40-60) Cholesterol/HDL Ratio 3.5 (3.3-4.4) Vitamin B12 Level 502 PG/ML (193-986) Folate 10.5 NG/ML (8.6-58.9) Thyroid Stimulating Hormone (TSH) 3.415 uiU/mL (0.358-3.740) Free Thyroxine 1.34 NG/DL (0.76-1.46) Microbiology Date/Time Source Procedure Growth Status 04/26/20 15:45 Urine,Clean Catch Urine Culture - Preliminary Gram Negative Binu Resulted 04/26/20 15:43 Blood Blood Culture - Preliminary NO GROWTH AFTER 24 HOURS Resulted 04/26/20 15:20 Nasopharynx SARS-CoV-2 RdRp Gene Assay - Final Complete 04/26/20 15:20 Blood Blood Culture - Preliminary NO GROWTH AFTER 24 HOURS Resulted Anish Nelson MD Apr 28, 2020 14:26
--- NOTE | 2020-04-28 15:29 | Infectious Diseases Prog Note ---
Assessment/Plan Assessment: COVID19 neg x1 (04/26 rapid COVID PCR neg) -04/26 CXR: Mild accentuation of interstitial markings. No consolidation. Pyuria/bacteriuria- ?UTI -u/a wbc 10-25, nit neg, leuk +3; ucx <10k GNR Bacteremia- real vs contaminant -04/28 Bcx 1/4 Gram variable rods Afebrile No leukocytosis FTT Generalized weakness -CT head: No acute intracranial abnormality. Global parenchymal atrophy and chronic microvascular ischemic changes. HTN Plan: -Continue empiriC Ceftriaxone #3 and add IV vancomycin -f/u cx -Monitor CBC/CMP, temperatures -repeat Bcx x2 Thank you for consulting [facility]. Will continue to follow along with you. Amelia vo RN. Subjective Allergies: Coded Allergies: No Known Allergies (Unverified , 04/26/20) All Systems: reviewed and negative except above afebrile no leukocytosis bacteremic Objective Last 24 Hour Vital Signs Date Time Temp Pulse Resp B/P (MAP) Pulse Ox O2 Delivery O2 Flow Rate FiO2 04/28/20 12:00 64 04/28/20 11:31 97.1 67 17 144/60 (88) 95 04/28/20 10:15 76 04/28/20 09:36 77 159/75 04/28/20 09:36 159/75 04/28/20 09:35 159/75 04/28/20 09:00 Room Air 04/28/20 08:00 79 04/28/20 08:00 97.8 77 17 159/75 (103) 96 04/28/20 04:00 97.5 61 18 136/60 (85) 97 04/28/20 04:00 62 04/28/20 00:00 60 04/28/20 00:00 96.8 63 18 143/58 (86) 95 04/27/20 21:00 Room Air 04/27/20 20:00 65 04/27/20 20:00 97.9 64 17 140/56 (84) 95 04/27/20 16:00 83 04/27/20 15:58 97.5 71 18 153/59 (90) 96 Height (Feet): 5 Height (Inches): 2.00 Weight (Pounds): 115 GENERAL: Sleeping in bed. Unable to assess orientation. CARDIOVASCULAR: No murmur. LUNGS: Distant and clear. ABDOMEN: Bowel sound positive. Nontender. Nondistended. EXTREMITIES: No cyanosis, clubbing, or edema. NEUROLOGIC: The patient moves all extremities, slightly weak. Microbiology Date/Time Source Procedure Growth Status 04/26/20 15:45 Urine,Clean Catch Urine Culture - Preliminary Gram Negative Binu Resulted 04/26/20 15:43 Blood Blood Culture - Preliminary NO GROWTH AFTER 24 HOURS Resulted 04/26/20 15:20 Nasopharynx SARS-CoV-2 RdRp Gene Assay - Final Complete 04/26/20 15:20 Blood Blood Culture - Preliminary Resulted Laboratory Tests Test 04/28/20 06:22 White Blood Count 4.9 K/UL (4.8-10.8) Red Blood Count 3.70 M/UL (4.20-5.40) L Hemoglobin 11.9 G/DL (12.0-16.0) L Hematocrit 34.9 % (37.0-47.0) L Mean Corpuscular Volume 94 FL (80-99) Mean Corpuscular Hemoglobin 32.1 PG (27.0-31.0) H Mean Corpuscular Hemoglobin Concent 34.0 G/DL (32.0-36.0) Red Cell Distribution Width 12.1 % (11.6-14.8) Platelet Count 153 K/UL (150-450) Mean Platelet Volume 6.0 FL (6.5-10.1) L Neutrophils (%) (Auto) 45.4 % (45.0-75.0) Lymphocytes (%) (Auto) 41.3 % (20.0-45.0) Monocytes (%) (Auto) 8.9 % (1.0-10.0) Eosinophils (%) (Auto) 3.0 % (0.0-3.0) Basophils (%) (Auto) 1.3 % (0.0-2.0) Sodium Level 143 MMOL/L (136-145) Potassium Level 4.0 MMOL/L (3.5-5.1) Chloride Level 111 MMOL/L (98-107) H Carbon Dioxide Level 21 MMOL/L (21-32) Anion Gap 12 mmol/L (5-15) Blood Urea Nitrogen 7 mg/dL (7-18) Creatinine 0.6 MG/DL (0.55-1.30) Estimat Glomerular Filtration Rate > 60 mL/min (>60) Glucose Level 106 MG/DL (74-106) Hemoglobin A1c 5.7 % (4.3-6.0) Uric Acid 2.8 MG/DL (2.6-7.2) Calcium Level 8.7 MG/DL (8.5-10.1) Phosphorus Level 3.0 MG/DL (2.5-4.9) Magnesium Level 2.0 MG/DL (1.8-2.4) Total Bilirubin 1.1 MG/DL (0.2-1.0) H Direct Bilirubin 0.2 MG/DL (0.0-0.3) Gamma Glutamyl Transpeptidase 30 U/L (5-85) Aspartate Amino Transf (AST/SGOT) 23 U/L (15-37) Alanine Aminotransferase (ALT/SGPT) 21 U/L (12-78) Alkaline Phosphatase 46 U/L (46-116) C-Reactive Protein, Quantitative < 0.4 mg/dL (0.00-0.90) Pro-B-Type Natriuretic Peptide 150 pg/mL (0-125) H Total Protein 6.9 G/DL (6.4-8.2) Albumin 3.6 G/DL (3.4-5.0) Globulin 3.3 g/dL Albumin/Globulin Ratio 1.1 (1.0-2.7) Triglycerides Level 115 MG/DL (30-150) Cholesterol Level 138 MG/DL (< 200) LDL Cholesterol 62 mg/dL (<100) HDL Cholesterol 40 MG/DL (40-60) Cholesterol/HDL Ratio 3.5 (3.3-4.4) Vitamin B12 Level 502 PG/ML (193-986) Folate 10.5 NG/ML (8.6-58.9) Thyroid Stimulating Hormone (TSH) 3.415 uiU/mL (0.358-3.740) Free Thyroxine 1.34 NG/DL (0.76-1.46) Current Medications Medications (Trade) Dose Ordered Sig/Carl Route PRN Reason Start Time Stop Time Status Last Admin Dose Admin Acetaminophen (Tylenol) 325 mg Q4H PRN ORAL Temp >100.5 04/27/20 11:45 05/27/20 11:44 Acetaminophen (Tylenol) 650 mg Q4H PRN ORAL Mild Pain (Pain Scale 1-3) 04/26/20 18:30 05/26/20 18:29 04/27/20 01:30 Alendronate Sodium (Fosamax) 70 mg ONCE A WEEK ORAL 04/28/20 06:30 05/28/20 06:29 04/28/20 06:16 Amitriptyline HCl (Elavil) 10 mg BEDTIME ORAL 04/27/20 21:00 05/27/20 20:59 04/27/20 20:53 Amlodipine Besylate (Norvasc) 10 mg DAILY ORAL 04/28/20 09:00 05/28/20 08:59 04/28/20 09:36 Amylase/Lipase/ Protease (Jarret JC 36,000 units cap) 1 ea BEFORE MEALS ORAL 04/27/20 16:30 07/26/20 16:29 04/28/20 12:08 Aspirin (ASA) 81 mg DAILY ORAL 04/28/20 09:00 06/12/20 08:59 04/28/20 09:35 Baclofen (Lioresal) 10 mg DAILYPRN PRN ORAL Muscle Spasm 04/27/20 12:15 05/27/20 12:14 Barium Sulfate (Varibar Honey) 250 ml NOW PRN MC RAD 04/27/20 13:30 04/30/20 13:28 Barium Sulfate (Varibar [place]) 240 ml NOW PRN MC RAD 04/27/20 13:30 04/30/20 13:28 Barium Sulfate (Varibar Pudding) 230 ml NOW PRN MC RAD 04/27/20 13:30 04/30/20 13:28 Barium Sulfate (Varibar Thin Liquid powder) 148 gm NOW PRN MC RAD 04/27/20 13:30 04/30/20 13:28 Bethanechol Chloride (Urecholine) 25 mg THREE TIMES A DAY ORAL 04/27/20 13:00 05/27/20 12:59 04/28/20 12:08 Ceftriaxone Sodium 1 gm/ Dextrose 55 ml @ 110 mls/hr Q24H IVPB 04/27/20 17:00 05/04/20 16:59 04/27/20 16:29 Dextrose/ Electrolytes 1,000 ml @ 50 mls/hr Q20H IV 04/27/20 18:00 05/27/20 17:59 04/28/20 13:24 Docusate Sodium (Colace) 100 mg THREE TIMES A DAY ORAL 04/27/20 18:00 05/27/20 17:59 04/28/20 12:08 Heparin Sodium (Porcine) (Heparin 5000 units/ml) 5,000 units EVERY 12 HOURS SUBQ 04/26/20 21:00 06/10/20 20:59 04/27/20 20:54 Linaclotide (Linzess) 290 mcg DAILY ORAL 04/27/20 14:00 07/26/20 13:59 04/28/20 09:36 Lorazepam (Ativan) 0.5 mg Q8H PRN ORAL For Anxiety 04/27/20 11:45 05/04/20 11:44 Losartan Potassium (Cozaar) 50 mg DAILY ORAL 04/28/20 09:00 05/28/20 08:59 04/28/20 09:35 Megestrol Acetate (Megace) 40 mg BID ORAL 04/27/20 18:00 05/03/20 08:59 04/28/20 09:35 Memantine (Namenda) 10 mg DAILY ORAL 04/28/20 09:00 05/28/20 08:59 04/28/20 09:36 Pantoprazole (Protonix) 40 mg EVERY 12 HOURS ORAL 04/27/20 21:00 05/27/20 20:59 04/28/20 09:35 Trazodone HCl (Desyrel) 50 mg BEDTIME ORAL 04/27/20 21:00 05/27/20 20:59 04/27/20 20:52 Bozena Mosley M.D. Apr 28, 2020 15:29
[2020-04-28 16:00] VITALS: BP 139/52
[2020-04-28] MEDS: cefTRIAXone 1 GM in D5W 55 ML IVPB SCH (16:30)
--- NOTE | 2020-04-28 17:14 | Nephrology Progress Note ---
Assessment/Plan Problem List: (1) Electrolyte imbalance (2) Dehydration (3) Failure to thrive (4) UTI (urinary tract infection) Assessment Dehydration, hypokalemia UTI Failure to thrive History of diabetes mellitus History of hypertension Plan Slow hydration Adjust blood pressure medication with proper parameters Potassium supplement Monitor electrolytes Per consultants Subjective ROS Limited/Unobtainable: No Constitutional: Reports: malaise Objective Objective Last 24 Hour Vital Signs Date Time Temp Pulse Resp B/P (MAP) Pulse Ox O2 Delivery O2 Flow Rate FiO2 04/28/20 16:00 97.5 59 17 139/52 (81) 96 04/28/20 16:00 67 04/28/20 12:00 64 04/28/20 11:31 97.1 67 17 144/60 (88) 95 04/28/20 10:15 76 04/28/20 09:36 77 159/75 04/28/20 09:36 159/75 04/28/20 09:35 159/75 04/28/20 09:00 Room Air 04/28/20 08:00 79 04/28/20 08:00 97.8 77 17 159/75 (103) 96 04/28/20 04:00 97.5 61 18 136/60 (85) 97 04/28/20 04:00 62 04/28/20 00:00 60 04/28/20 00:00 96.8 63 18 143/58 (86) 95 04/27/20 21:00 Room Air 04/27/20 20:00 65 04/27/20 20:00 97.9 64 17 140/56 (84) 95 Intake and Output 04/27/20 04/28/20 19:00 07:00 Intake Total 680.8 ml 680 ml Balance 680.8 ml 680 ml Intake Oral 610 ml 130 ml IV Total 70.8 ml 550 ml # Voids 5 1 Laboratory Tests 04/28/20 06:22: White Blood Count 4.9, Red Blood Count 3.70L, Hemoglobin 11.9L, Hematocrit 34.9L , Mean Corpuscular Volume 94, Mean Corpuscular Hemoglobin 32.1H, Mean Corpuscular Hemoglobin Concent 34.0, Red Cell Distribution Width 12.1, Platelet Count 153, Mean Platelet Volume 6.0L, Neutrophils (%) (Auto) 45.4, Lymphocytes (%) (Auto) 41.3, Monocytes (%) (Auto) 8.9, Eosinophils (%) (Auto) 3.0, Basophils (%) (Auto) 1.3, Sodium Level 143, Potassium Level 4.0, Chloride Level 111H, Carbon Dioxide Level 21, Anion Gap 12, Blood Urea Nitrogen 7, Creatinine 0.6, Estimat Glomerular Filtration Rate > 60, Glucose Level 106, Hemoglobin A1c 5.7, Uric Acid 2.8, Calcium Level 8.7, Phosphorus Level 3.0, Magnesium Level 2.0, Total Bilirubin 1.1H, Direct Bilirubin 0.2, Gamma Glutamyl Transpeptidase 30, Aspartate Amino Transf (AST/SGOT) 23, Alanine Aminotransferase (ALT/SGPT) 21, Alkaline Phosphatase 46, C-Reactive Protein, Quantitative < 0.4, Pro-B-Type Natriuretic Peptide 150H, Total Protein 6.9, Albumin 3.6, Globulin 3.3, Albumin/Globulin Ratio 1.1, Triglycerides Level 115, Cholesterol Level 138, LDL Cholesterol 62, HDL Cholesterol 40, Cholesterol/HDL Ratio 3.5, Vitamin B12 Level 502, Folate 10.5, Thyroid Stimulating Hormone (TSH) 3.415, Free Thyroxine 1.34 Height (Feet): 5 Height (Inches): 2.00 Weight (Pounds): 115 General Appearance: no apparent distress Cardiovascular: normal rate Respiratory/Chest: decreased breath sounds Abdomen: soft Objective No change Maximilian Guillen MD Apr 28, 2020 17:14
--- NOTE | 2020-04-28 17:14 | Consultation ---
DATE OF CONSULTATION: 04/28/2020 CARDIOLOGY CONSULTATION REFERRING PHYSICIAN: Dakota Calvin D.O. REASON FOR CONSULTATION: Bradycardia with junctional rhythm with heart rate in the 40s. HISTORY OF PRESENT ILLNESS: The patient is an 85-year-old lady with history of hypertension, who presented to the hospital with generalized weakness that has been progressing, worse over the last 2 weeks. The patient has not been eating well and she is feeling dehydrated and her mouth is dry. The patient is on medication for high blood pressure, but denies any diabetes or coronary artery disease or congestive heart failure. The patient was admitted. The patient, however, had episodes of junctional rhythm with heart rate dropping to 40s at around 10 o'clock in the morning just today. Cardiac electrophysiology consultation was requested for evaluation of bradycardia. REVIEW OF SYSTEMS: Negative other than what is mentioned in history of present illness. PAST MEDICAL HISTORY: As mentioned above. FAMILY HISTORY: Noncontributory. SOCIAL HISTORY: She lives at home. Does not smoke or drink alcohol. PHYSICAL EXAMINATION: VITAL SIGNS: Blood pressure 148/60, pulse is 60, respirations 18, and temperature 97.1. HEAD AND NECK: No JVD. LUNGS: Clear. CARDIOVASCULAR: Regular S1 and S2 with no gallop or murmur. ABDOMEN: Soft. EXTREMITIES: No pitting edema. LABORATORY AND DIAGNOSTIC DATA: Her telemetry strips from April 28, 2020 at 10:15 showed episodes of sinus rhythm, but suddenly developed sinus arrest with resultant junctional rhythm that happened several times. Her EKG showed normal sinus rhythm with inferolateral ischemia, T-wave inversions. Labs showed white count of 4.9, hemoglobin 11.9, hematocrit of 35, platelet count 153. Sodium 142, potassium 4.0, BUN of 7, creatinine 0.6, and glucose of 106. ASSESSMENT/PLAN: 1. Sudden episodes of junctional rhythm while the patient was awake. The patient is on a very small dose of Bystolic. That will be discontinued. I will also discontinue p.r.n. clonidine. We will watch the patient on telemetry. We will check echocardiogram and thyroid function test as well TSH and T4 are essentially within normal range. If the bradycardia recurs despite being off Bystolic, she may need a permanent pacemaker placement. 2. Hypertension. Bystolic was discontinued. The patient is on losartan 50 mg daily and amlodipine 10 mg daily. 3. UTI, on ceftriaxone. 4. Weakness and failure to thrive. Thank you very much for allowing me to participate in the care of this patient. Please do not hesitate to contact me for any questions regarding my evaluation. Anish Nelson M.D. DR: JARON JOB#: [id number] CC:
[2020-04-28] MEDS: Vancomycin 500mg/D5W 110ml IVPB SCH ×2 (18:29)
[2020-04-28 20:00] VITALS: BP 123/50
[2020-04-28] MEDS: TraZODone 50mg tab ORAL SCH (20:40)
[2020-04-29] VITALS: BP 128/81
[2020-04-29 04:00] VITALS: BP 131/58
[2020-04-29] MEDS: Vancomycin 500mg/D5W 110ml IVPB SCH ×4 (05:11→17:07)
[2020-04-29] MEDS: Creon DR 36,000 units cap ORAL SCH ×3 (06:15→17:07)
[2020-04-29 07:16] LABS: BASOPHILS % (AUTO) 1.6 % (0.0-2.0); EOSINOPHILS % (AUTO) 2.6 % (0.0-3.0); HEMATOCRIT 35.2 % (37.0-47.0); LYMPHOCYTES % (AUTO) 38.9 % (20.0-45.0); MEAN CORPUSCULAR VOLUME 94 FL (80-99); MONOCYTES % (AUTO) 8.5 % (1.0-10.0); NEUTROPHILS % (AUTO) 48.4 % (45.0-75.0); PLATELET COUNT 159 K/UL (150-450); RED BLOOD COUNT 3.74 M/UL (4.20-5.40); WHITE BLOOD COUNT 5.6 K/UL (4.8-10.8)
[2020-04-29 07:30] LABS: ANION GAP 12 mmol/L (5-15); BLOOD UREA NITROGEN 11 mg/dL (7-18); CALCIUM 9.4 MG/DL (8.5-10.1); CARBON DIOXIDE 19 MMOL/L (21-32); CHLORIDE 108 MMOL/L (98-107); CREATININE 0.7 MG/DL (0.55-1.30); POTASSIUM 4.2 MMOL/L (3.5-5.1); SODIUM 139 MMOL/L (136-145)
[2020-04-29 08:00] VITALS: BP 128/60
[2020-04-29] MEDS: Docusate 100mg cap ORAL SCH ×3 (09:00→17:56)
[2020-04-29] MEDS: Heparin 5000 units/ml inj SUBQ SCH ×2 (09:00→21:28)
[2020-04-29] MEDS: Aspirin Baby 81mg ORAL SCH (09:02)
[2020-04-29] MEDS: Losartan 50mg tab ORAL SCH (09:03)
[2020-04-29] MEDS: Memantine 10mg tab ORAL SCH (09:03)
[2020-04-29] MEDS: Bethanechol 25mg Tab ORAL SCH ×3 (09:03→17:10)
--- NOTE | 2020-04-29 09:20 | Nephrology Progress Note ---
Assessment/Plan Problem List: (1) Electrolyte imbalance (2) Dehydration (3) Failure to thrive (4) UTI (urinary tract infection) Assessment Dehydration, hypokalemia UTI Failure to thrive History of diabetes mellitus History of hypertension Plan April 29: Renal parameters stable. Blood pressure stable. Medication list reviewed. Deviously: Slow hydration Adjust blood pressure medication with proper parameters Potassium supplement Monitor electrolytes Per consultants Subjective ROS Limited/Unobtainable: No Constitutional: Reports: malaise Objective Objective Last 24 Hour Vital Signs Date Time Temp Pulse Resp B/P (MAP) Pulse Ox O2 Delivery O2 Flow Rate FiO2 04/29/20 09:03 128/60 04/29/20 09:02 68 128/60 04/29/20 08:00 97.7 68 18 128/60 (82) 97 04/29/20 04:00 59 04/29/20 04:00 98.7 61 20 131/58 (82) 97 04/29/20 00:00 59 04/29/20 00:00 97.7 59 20 128/81 (97) 96 04/28/20 21:00 Room Air 04/28/20 20:00 97.9 60 21 123/50 (74) 95 04/28/20 20:00 60 04/28/20 16:00 97.5 59 17 139/52 (81) 96 04/28/20 16:00 67 04/28/20 12:00 64 04/28/20 11:31 97.1 67 17 144/60 (88) 95 04/28/20 10:15 76 04/28/20 09:36 77 159/75 04/28/20 09:36 159/75 04/28/20 09:35 159/75 Intake and Output 04/28/20 04/29/20 19:00 07:00 Intake Total 1088.3 ml 500 ml Balance 1088.3 ml 500 ml Intake Oral 810 ml IV Total 278.3 ml 500 ml # Voids 3 2 Laboratory Tests 04/29/20 06:56: White Blood Count 5.6, Red Blood Count 3.74L, Hemoglobin 12.0, Hematocrit 35.2L, Mean Corpuscular Volume 94, Mean Corpuscular Hemoglobin 32.2H, Mean Corpuscular Hemoglobin Concent 34.2, Red Cell Distribution Width 12.0, Platelet Count 159, Mean Platelet Volume 6.5, Neutrophils (%) (Auto) 48.4, Lymphocytes (%) (Auto) 38.9, Monocytes (%) (Auto) 8.5, Eosinophils (%) (Auto) 2.6, Basophils (%) (Auto) 1.6, Sodium Level 139, Potassium Level 4.2, Chloride Level 108H, Carbon Dioxide Level 19L, Anion Gap 12, Blood Urea Nitrogen 11, Creatinine 0.7, Estimat Glomerular Filtration Rate > 60, Glucose Level 97, Calcium Level 9.4, Troponin I 0.000 Height (Feet): 5 Height (Inches): 2.00 Weight (Pounds): 115 General Appearance: no apparent distress Cardiovascular: normal rate Respiratory/Chest: lungs clear Abdomen: soft Objective No change Maximilian Guillen MD Apr 29, 2020 09:20
--- NOTE | 2020-04-29 09:23 | General Progress Note ---
Subjective Constitutional: Reports: weakness Allergies: Coded Allergies: No Known Allergies (Unverified , 04/26/20) All Systems: reviewed and negative except above Subjective calm in bed,per nurse had junctional rhythem last night Objective Last 24 Hour Vital Signs Date Time Temp Pulse Resp B/P (MAP) Pulse Ox O2 Delivery O2 Flow Rate FiO2 04/29/20 09:03 128/60 04/29/20 09:02 68 128/60 04/29/20 08:00 97.7 68 18 128/60 (82) 97 04/29/20 04:00 59 04/29/20 04:00 98.7 61 20 131/58 (82) 97 04/29/20 00:00 59 04/29/20 00:00 97.7 59 20 128/81 (97) 96 04/28/20 21:00 Room Air 04/28/20 20:00 97.9 60 21 123/50 (74) 95 04/28/20 20:00 60 04/28/20 16:00 97.5 59 17 139/52 (81) 96 04/28/20 16:00 67 04/28/20 12:00 64 04/28/20 11:31 97.1 67 17 144/60 (88) 95 04/28/20 10:15 76 04/28/20 09:36 77 159/75 04/28/20 09:36 159/75 04/28/20 09:35 159/75 Intake and Output 04/28/20 04/29/20 19:00 07:00 Intake Total 1088.3 ml 500 ml Balance 1088.3 ml 500 ml Intake Oral 810 ml IV Total 278.3 ml 500 ml # Voids 3 2 Laboratory Tests 04/29/20 06:56: White Blood Count 5.6, Red Blood Count 3.74L, Hemoglobin 12.0, Hematocrit 35.2L, Mean Corpuscular Volume 94, Mean Corpuscular Hemoglobin 32.2H, Mean Corpuscular Hemoglobin Concent 34.2, Red Cell Distribution Width 12.0, Platelet Count 159, Mean Platelet Volume 6.5, Neutrophils (%) (Auto) 48.4, Lymphocytes (%) (Auto) 38.9, Monocytes (%) (Auto) 8.5, Eosinophils (%) (Auto) 2.6, Basophils (%) (Auto) 1.6, Sodium Level 139, Potassium Level 4.2, Chloride Level 108H, Carbon Dioxide Level 19L, Anion Gap 12, Blood Urea Nitrogen 11, Creatinine 0.7, Estimat Glomerular Filtration Rate > 60, Glucose Level 97, Calcium Level 9.4, Troponin I 0.000 Height (Feet): 5 Height (Inches): 2.00 Weight (Pounds): 115 General Appearance: lethargic EENT: normal ENT inspection Neck: normal alignment Cardiovascular: normal peripheral pulses, normal rate, regular rhythm Respiratory/Chest: chest wall non-tender, lungs clear, normal breath sounds Abdomen: normal bowel sounds, non tender, soft Extremities: normal inspection Edema: no edema noted Arm (L), no edema noted Arm (R), no edema noted Leg (L), no edema noted Leg (R), no edema noted Pedal (L), no edema noted Pedal (R), no edema noted Generalized Neurologic: motor weakness Skin: normal pigmentation, warm/dry Assessment/Plan Problem List: (1) HTN (hypertension) ICD Codes: I10 - Essential (primary) hypertension SNOMED: 63479324 (2) Diabetes ICD Codes: E11.9 - Type 2 diabetes mellitus without complications SNOMED: 81279266 (3) Junctional rhythm ICD Codes: I49.8 - Other specified cardiac arrhythmias SNOMED: 98634581 (4) Dehydration ICD Codes: E86.0 - Dehydration SNOMED: 10292993 (5) Failure to thrive SNOMED: 25039681 Qualifiers: Qualified Codes: R62.7 - Adult failure to thrive (6) UTI (urinary tract infection) ICD Codes: N39.0 - Urinary tract infection, site not specified SNOMED: 27153916 Qualifiers: Qualified Codes: N39.0 - Urinary tract infection, site not specified Status: unchanged Assessment/Plan: pt diet abx cardio eval cbc bmp am dc plan w hh when cealr by Dakota Barry DO Apr 29, 2020 09:22
--- NOTE | 2020-04-29 09:47 | General Progress Note ---
Subjective ROS Limited/Unobtainable: Yes Allergies: Coded Allergies: No Known Allergies (Unverified , 04/26/20) Objective Last 24 Hour Vital Signs Date Time Temp Pulse Resp B/P (MAP) Pulse Ox O2 Delivery O2 Flow Rate FiO2 04/29/20 09:03 128/60 04/29/20 09:02 68 128/60 04/29/20 08:00 97.7 68 18 128/60 (82) 97 04/29/20 04:00 59 04/29/20 04:00 98.7 61 20 131/58 (82) 97 04/29/20 00:00 59 04/29/20 00:00 97.7 59 20 128/81 (97) 96 04/28/20 21:00 Room Air 04/28/20 20:00 97.9 60 21 123/50 (74) 95 04/28/20 20:00 60 04/28/20 16:00 97.5 59 17 139/52 (81) 96 04/28/20 16:00 67 04/28/20 12:00 64 04/28/20 11:31 97.1 67 17 144/60 (88) 95 04/28/20 10:15 76 Intake and Output 04/28/20 04/29/20 19:00 07:00 Intake Total 1088.3 ml 500 ml Balance 1088.3 ml 500 ml Intake Oral 810 ml IV Total 278.3 ml 500 ml # Voids 3 2 Laboratory Tests 04/29/20 06:56: White Blood Count 5.6, Red Blood Count 3.74L, Hemoglobin 12.0, Hematocrit 35.2L, Mean Corpuscular Volume 94, Mean Corpuscular Hemoglobin 32.2H, Mean Corpuscular Hemoglobin Concent 34.2, Red Cell Distribution Width 12.0, Platelet Count 159, Mean Platelet Volume 6.5, Neutrophils (%) (Auto) 48.4, Lymphocytes (%) (Auto) 38.9, Monocytes (%) (Auto) 8.5, Eosinophils (%) (Auto) 2.6, Basophils (%) (Auto) 1.6, Sodium Level 139, Potassium Level 4.2, Chloride Level 108H, Carbon Dioxide Level 19L, Anion Gap 12, Blood Urea Nitrogen 11, Creatinine 0.7, Estimat Glomerular Filtration Rate > 60, Glucose Level 97, Calcium Level 9.4, Troponin I 0.000 Height (Feet): 5 Height (Inches): 2.00 Weight (Pounds): 115 General Appearance: no apparent distress EENT: PERRL/EOMI Neck: supple Cardiovascular: normal rate Respiratory/Chest: accessory muscle use Abdomen: normal bowel sounds, non tender, soft Extremities: non-tender Assessment/Plan Problem List: (1) Failure to thrive SNOMED: 67538034 Qualifiers: Qualified Codes: R62.7 - Adult failure to thrive (2) UTI (urinary tract infection) ICD Codes: N39.0 - Urinary tract infection, site not specified SNOMED: 51208386 Qualifiers: Qualified Codes: N39.0 - Urinary tract infection, site not specified (3) Dehydration ICD Codes: E86.0 - Dehydration SNOMED: 79055947 Status: unchanged Assessment/Plan: passed swallow eval fu calorie count abx fu cardiology recs will fu Bjorn De La Cruz MD Apr 29, 2020 09:47
[2020-04-29] MEDS: D5 1/2NS w/KCl 40meq 1000ml 1,000 ML IV SCH (10:25)
[2020-04-29 12:00] VITALS: BP 154/68
--- NOTE | 2020-04-29 12:47 | Cardiac Electrophysiology PN ---
Assessment/Plan Assessment/Plan 1. Sudden episodes of junctional rhythm and bradycardia while the patient was awake. The patient was on a very small dose of Bystolic that was discontinued. Also discontinue p.r.n. clonidine. Not hypopthyroid. Continues with these junctional episodes even this am while awake. We will watch the patient on telemetry for another day. Echocardiogram showed Nl EF. If the bradycardia recurs despite being off Bystolic, she will need a permanent pacemaker placement. 2. Hypertension. Off Bystolic. The patient is on losartan 50 mg daily and amlodipine 10 mg daily. 3. UTI, on ceftriaxone. 4. Weakness and failure to thrive. DW RN Not stable for discharge Subjective Subjective Continues with episodes of bradycardia and junctional rhythm while awake. No CP or SOB Objective Last 24 Hour Vital Signs Date Time Temp Pulse Resp B/P (MAP) Pulse Ox O2 Delivery O2 Flow Rate FiO2 04/29/20 09:03 128/60 04/29/20 09:02 68 128/60 04/29/20 09:00 Room Air 04/29/20 08:00 97.7 68 18 128/60 (82) 97 04/29/20 08:00 66 04/29/20 04:00 59 04/29/20 04:00 98.7 61 20 131/58 (82) 97 04/29/20 00:00 59 04/29/20 00:00 97.7 59 20 128/81 (97) 96 04/28/20 21:00 Room Air 04/28/20 20:00 97.9 60 21 123/50 (74) 95 04/28/20 20:00 60 04/28/20 16:00 97.5 59 17 139/52 (81) 96 04/28/20 16:00 67 Intake and Output 04/28/20 04/29/20 19:00 07:00 Intake Total 1088.3 ml 500 ml Balance 1088.3 ml 500 ml Intake Oral 810 ml IV Total 278.3 ml 500 ml # Voids 3 2 Laboratory Tests Test 04/29/20 06:56 White Blood Count 5.6 K/UL (4.8-10.8) Red Blood Count 3.74 M/UL (4.20-5.40) L Hemoglobin 12.0 G/DL (12.0-16.0) Hematocrit 35.2 % (37.0-47.0) L Mean Corpuscular Volume 94 FL (80-99) Mean Corpuscular Hemoglobin 32.2 PG (27.0-31.0) H Mean Corpuscular Hemoglobin Concent 34.2 G/DL (32.0-36.0) Red Cell Distribution Width 12.0 % (11.6-14.8) Platelet Count 159 K/UL (150-450) Mean Platelet Volume 6.5 FL (6.5-10.1) Neutrophils (%) (Auto) 48.4 % (45.0-75.0) Lymphocytes (%) (Auto) 38.9 % (20.0-45.0) Monocytes (%) (Auto) 8.5 % (1.0-10.0) Eosinophils (%) (Auto) 2.6 % (0.0-3.0) Basophils (%) (Auto) 1.6 % (0.0-2.0) Sodium Level 139 MMOL/L (136-145) Potassium Level 4.2 MMOL/L (3.5-5.1) Chloride Level 108 MMOL/L (98-107) H Carbon Dioxide Level 19 MMOL/L (21-32) L Anion Gap 12 mmol/L (5-15) Blood Urea Nitrogen 11 mg/dL (7-18) Creatinine 0.7 MG/DL (0.55-1.30) Estimat Glomerular Filtration Rate > 60 mL/min (>60) Glucose Level 97 MG/DL (74-106) Calcium Level 9.4 MG/DL (8.5-10.1) Troponin I 0.000 ng/mL (0.000-0.056) Microbiology Date/Time Source Procedure Growth Status 04/26/20 15:45 Urine,Clean Catch Urine Culture - Final Escherichia Coli Diphtheroids Complete 04/26/20 15:43 Blood Blood Culture - Preliminary NO GROWTH AFTER 48 HOURS Resulted 04/26/20 15:20 Nasopharynx SARS-CoV-2 RdRp Gene Assay - Final Complete 04/26/20 15:20 Blood Blood Culture - Preliminary Gram Negative Binu Resulted Objective HEAD AND NECK: No JVD. LUNGS: Clear. CARDIOVASCULAR: Regular S1 and S2 with no gallop or murmur. ABDOMEN: Soft. EXTREMITIES: No pitting edema. Anish Nelson MD Apr 29, 2020 12:47
[2020-04-29 16:00] VITALS: BP 122/50
[2020-04-29] MEDS: cefTRIAXone 1 GM in D5W 55 ML IVPB SCH (17:06)
[2020-04-29 20:00] VITALS: BP 104/57
--- NOTE | 2020-04-29 20:02 | Infectious Diseases Prog Note ---
Assessment/Plan Assessment: COVID19 neg x1 (04/26 rapid COVID PCR neg) -04/26 CXR: Mild accentuation of interstitial markings. No consolidation. Pyuria/bacteriuria- UTI c/w bacteremia -u/a wbc 10-25, nit neg, leuk +3; ucx <10k E.coli, 10-20k dpheroids Bacteremia- -04/28 Bcx 1/4 Gram variable rods, GNR; 04/28 Bx p Afebrile No leukocytosis FTT Generalized weakness -CT head: No acute intracranial abnormality. Global parenchymal atrophy and chronic microvascular ischemic changes. HTN Plan: -Continue empiriC Ceftriaxone #4 - IV vancomycin #2 pending Bcx -f/u cx -Monitor CBC/CMP, temperatures -f/u repeat Bcx x2 Thank you for consulting [facility]. Will continue to follow along with you. Discussed gilda UNDERWOOD. Subjective Allergies: Coded Allergies: No Known Allergies (Unverified , 04/26/20) afebrile no leukocytosis awaiting repeat Bcx Objective Last 24 Hour Vital Signs Date Time Temp Pulse Resp B/P (MAP) Pulse Ox O2 Delivery O2 Flow Rate FiO2 04/29/20 16:00 96.6 46 18 122/50 (74) 97 04/29/20 16:00 48 04/29/20 12:00 96.9 70 20 154/68 (96) 98 04/29/20 12:00 85 04/29/20 09:03 128/60 04/29/20 09:02 68 128/60 04/29/20 09:00 Room Air 04/29/20 08:00 97.7 68 18 128/60 (82) 97 04/29/20 08:00 66 04/29/20 04:00 59 04/29/20 04:00 98.7 61 20 131/58 (82) 97 04/29/20 00:00 59 04/29/20 00:00 97.7 59 20 128/81 (97) 96 04/28/20 21:00 Room Air 04/28/20 20:00 97.9 60 21 123/50 (74) 95 04/28/20 20:00 60 Height (Feet): 5 Height (Inches): 2.00 Weight (Pounds): 115 GENERAL: Sleeping in bed. Unable to assess orientation. CARDIOVASCULAR: No murmur. LUNGS: Distant and clear. ABDOMEN: Bowel sound positive. Nontender. Nondistended. EXTREMITIES: No cyanosis, clubbing, or edema. NEUROLOGIC: The patient moves all extremities, slightly weak. Laboratory Tests Test 04/29/20 06:56 White Blood Count 5.6 K/UL (4.8-10.8) Red Blood Count 3.74 M/UL (4.20-5.40) L Hemoglobin 12.0 G/DL (12.0-16.0) Hematocrit 35.2 % (37.0-47.0) L Mean Corpuscular Volume 94 FL (80-99) Mean Corpuscular Hemoglobin 32.2 PG (27.0-31.0) H Mean Corpuscular Hemoglobin Concent 34.2 G/DL (32.0-36.0) Red Cell Distribution Width 12.0 % (11.6-14.8) Platelet Count 159 K/UL (150-450) Mean Platelet Volume 6.5 FL (6.5-10.1) Neutrophils (%) (Auto) 48.4 % (45.0-75.0) Lymphocytes (%) (Auto) 38.9 % (20.0-45.0) Monocytes (%) (Auto) 8.5 % (1.0-10.0) Eosinophils (%) (Auto) 2.6 % (0.0-3.0) Basophils (%) (Auto) 1.6 % (0.0-2.0) Sodium Level 139 MMOL/L (136-145) Potassium Level 4.2 MMOL/L (3.5-5.1) Chloride Level 108 MMOL/L (98-107) H Carbon Dioxide Level 19 MMOL/L (21-32) L Anion Gap 12 mmol/L (5-15) Blood Urea Nitrogen 11 mg/dL (7-18) Creatinine 0.7 MG/DL (0.55-1.30) Estimat Glomerular Filtration Rate > 60 mL/min (>60) Glucose Level 97 MG/DL (74-106) Calcium Level 9.4 MG/DL (8.5-10.1) Troponin I 0.000 ng/mL (0.000-0.056) Current Medications Medications (Trade) Dose Ordered Sig/Carl Route PRN Reason Start Time Stop Time Status Last Admin Dose Admin Acetaminophen (Tylenol) 325 mg Q4H PRN ORAL Temp >100.5 04/27/20 11:45 05/27/20 11:44 Acetaminophen (Tylenol) 650 mg Q4H PRN ORAL Mild Pain (Pain Scale 1-3) 04/26/20 18:30 05/26/20 18:29 04/27/20 01:30 Alendronate Sodium (Fosamax) 70 mg ONCE A WEEK ORAL 04/28/20 06:30 05/28/20 06:29 04/28/20 06:16 Amitriptyline HCl (Elavil) 10 mg BEDTIME ORAL 04/27/20 21:00 05/27/20 20:59 04/28/20 20:40 Amlodipine Besylate (Norvasc) 10 mg DAILY ORAL 04/28/20 09:00 05/28/20 08:59 04/29/20 09:02 Amylase/Lipase/ Protease (Jarret JC 36,000 units cap) 1 ea BEFORE MEALS ORAL 04/27/20 16:30 07/26/20 16:29 04/29/20 17:07 Aspirin (ASA) 81 mg DAILY ORAL 04/28/20 09:00 06/12/20 08:59 04/29/20 09:02 Baclofen (Lioresal) 10 mg DAILYPRN PRN ORAL Muscle Spasm 04/27/20 12:15 05/27/20 12:14 Barium Sulfate (Varibar Honey) 250 ml NOW PRN MC RAD 04/27/20 13:30 04/30/20 13:28 Barium Sulfate (Varibar Sasser) 240 ml NOW PRN MC RAD 04/27/20 13:30 04/30/20 13:28 Barium Sulfate (Varibar Pudding) 230 ml NOW PRN MC RAD 04/27/20 13:30 04/30/20 13:28 Barium Sulfate (Varibar Thin Liquid powder) 148 gm NOW PRN MC RAD 04/27/20 13:30 04/30/20 13:28 Bethanechol Chloride (Urecholine) 25 mg THREE TIMES A DAY ORAL 04/27/20 13:00 05/27/20 12:59 04/29/20 17:10 Ceftriaxone Sodium 1 gm/ Dextrose 55 ml @ 110 mls/hr Q24H IVPB 04/27/20 17:00 05/04/20 16:59 04/29/20 17:06 Dextrose/ Electrolytes 1,000 ml @ 50 mls/hr Q20H IV 04/27/20 18:00 05/27/20 17:59 04/29/20 10:25 Docusate Sodium (Colace) 100 mg THREE TIMES A DAY ORAL 04/27/20 18:00 05/27/20 17:59 04/28/20 12:08 Heparin Sodium (Porcine) (Heparin 5000 units/ml) 5,000 units EVERY 12 HOURS SUBQ 04/26/20 21:00 06/10/20 20:59 04/28/20 20:41 Linaclotide (Linzess) 290 mcg DAILY ORAL 04/27/20 14:00 07/26/20 13:59 04/29/20 09:03 Lorazepam (Ativan) 0.5 mg Q8H PRN ORAL For Anxiety 04/27/20 11:45 05/04/20 11:44 Losartan Potassium (Cozaar) 50 mg DAILY ORAL 04/28/20 09:00 05/28/20 08:59 04/29/20 09:03 Megestrol Acetate (Megace) 40 mg BID ORAL 04/27/20 18:00 05/03/20 08:59 04/29/20 17:10 Memantine (Namenda) 10 mg DAILY ORAL 04/28/20 09:00 05/28/20 08:59 04/29/20 09:03 Pantoprazole (Protonix) 40 mg EVERY 12 HOURS ORAL 04/27/20 21:00 05/27/20 20:59 04/29/20 09:02 Trazodone HCl (Desyrel) 50 mg BEDTIME ORAL 04/27/20 21:00 05/27/20 20:59 04/28/20 20:40 Vancomycin HCl (Vanco pharmacy to dose) 1 ea DAILY PRN MISC Per rx protocol 04/28/20 15:30 05/28/20 15:29 Vancomycin HCl 500 mg/Dextrose 110 ml @ 110 mls/hr Q12HR@0500,1700 IVPB 04/28/20 17:00 05/03/20 16:59 04/29/20 17:07 Bozena Mosley M.D. Apr 29, 2020 20:02
[2020-04-29] MEDS: TraZODone 50mg tab ORAL SCH (21:09)
[2020-04-30] VITALS: BP 110/62
[2020-04-30 04:00] VITALS: BP 104/60
[2020-04-30 04:11] LABS: BASOPHILS % (AUTO) 1.3 % (0.0-2.0); EOSINOPHILS % (AUTO) 2.8 % (0.0-3.0); HEMATOCRIT 31.9 % (37.0-47.0); HEMOGLOBIN 10.8 G/DL (12.0-16.0); LYMPHOCYTES % (AUTO) 38.5 % (20.0-45.0); MEAN CORPUSCULAR VOLUME 95 FL (80-99); MONOCYTES % (AUTO) 8.7 % (1.0-10.0); NEUTROPHILS % (AUTO) 48.5 % (45.0-75.0); PLATELET COUNT 145 K/UL (150-450); RED BLOOD COUNT 3.36 M/UL (4.20-5.40); RED CELL DISTRIBUTION WIDTH 12.4 % (11.6-14.8); WHITE BLOOD COUNT 5.6 K/UL (4.8-10.8)
[2020-04-30 04:26] LABS: CALCIUM 9.7 MG/DL (8.5-10.1); POTASSIUM 4.8 MMOL/L (3.5-5.1)
[2020-04-30] MEDS ORDERED: Vancomycin 750mg/NS 275ml IVPB SCH ×2 (06:00)
[2020-04-30] MEDS: D5 1/2NS w/KCl 40meq 1000ml 1,000 ML IV SCH (06:03)
[2020-04-30] MEDS: Creon DR 36,000 units cap ORAL SCH ×3 (06:04→17:05)
[2020-04-30 08:00] VITALS: BP 112/46
[2020-04-30] MEDS: Bethanechol 25mg Tab ORAL SCH ×3 (09:25→17:06)
[2020-04-30] MEDS: Memantine 10mg tab ORAL SCH (09:25)
[2020-04-30] MEDS: Docusate 100mg cap ORAL SCH ×3 (09:26→17:06)
[2020-04-30] MEDS: Losartan 50mg tab ORAL SCH (09:26)
[2020-04-30] MEDS: Aspirin Baby 81mg ORAL SCH (09:26)
[2020-04-30] MEDS: Heparin 5000 units/ml inj SUBQ SCH ×2 (09:29→20:28)
--- NOTE | 2020-04-30 09:46 | Infectious Diseases Prog Note ---
Assessment/Plan Assessment: COVID19 neg x1 (04/26 rapid COVID PCR neg) -04/26 CXR: Mild accentuation of interstitial markings. No consolidation. Pyuria/bacteriuria- UTI c/w bacteremia -u/a wbc 10-25, nit neg, leuk +3; ucx <10k E.coli, 10-20k dpheroids Bacteremia- Likely a contaminant -04/26 Bcx 1/ SPHINGOMONAS PAUCIMOBILIS , GNR; 04/28 Bx Neg to date Afebrile No leukocytosis FTT Generalized weakness -CT head: No acute intracranial abnormality. Global parenchymal atrophy and chronic microvascular ischemic changes. HTN Plan: -Continue empiriC Ceftriaxone #5 - 04/30/20 SP IV vancomycin #5 pending Bcx -f/u cx -Monitor CBC/CMP, temperatures -f/u repeat Bcx x2 Thank you for consulting [facility]. Will continue to follow along with you. Amelia vo RN. Subjective Allergies: Coded Allergies: No Known Allergies (Unverified , 04/26/20) Afebrile No Leukocytosis Objective Last 24 Hour Vital Signs Date Time Temp Pulse Resp B/P (MAP) Pulse Ox O2 Delivery O2 Flow Rate FiO2 04/30/20 09:26 112/46 04/30/20 09:26 46 112/46 04/30/20 08:00 96.9 46 20 112/46 (68) 96 04/30/20 04:00 97.8 53 19 104/60 (75) 95 04/30/20 04:00 35 04/30/20 00:13 46 04/30/20 00:00 98.0 55 20 110/62 (78) 94 04/29/20 23:31 39 04/29/20 21:00 Room Air 04/29/20 20:00 47 04/29/20 20:00 97.9 44 20 104/57 (73) 98 04/29/20 16:00 96.6 46 18 122/50 (74) 97 04/29/20 16:00 48 04/29/20 12:00 96.9 70 20 154/68 (96) 98 04/29/20 12:00 85 Height (Feet): 5 Height (Inches): 2.00 Weight (Pounds): 115 GENERAL: NASleeping in bed. Unable to assess orientation. LUNGS: Equal rise and fall of chest B/L ABDOMEN: Bowel sound positive. Nontender. Nondistended. EXTREMITIES: No cyanosis, clubbing, or edema. Microbiology Date/Time Source Procedure Growth Status 04/28/20 19:00 Blood Blood Culture - Preliminary NO GROWTH AFTER 24 HOURS Resulted 04/28/20 18:45 Blood Blood Culture - Preliminary NO GROWTH AFTER 24 HOURS Resulted Laboratory Tests Test 04/30/20 04:05 White Blood Count 5.6 K/UL (4.8-10.8) Red Blood Count 3.36 M/UL (4.20-5.40) L Hemoglobin 10.8 G/DL (12.0-16.0) L Hematocrit 31.9 % (37.0-47.0) L Mean Corpuscular Volume 95 FL (80-99) Mean Corpuscular Hemoglobin 32.1 PG (27.0-31.0) H Mean Corpuscular Hemoglobin Concent 33.9 G/DL (32.0-36.0) Red Cell Distribution Width 12.4 % (11.6-14.8) Platelet Count 145 K/UL (150-450) L Mean Platelet Volume 6.7 FL (6.5-10.1) Neutrophils (%) (Auto) 48.5 % (45.0-75.0) Lymphocytes (%) (Auto) 38.5 % (20.0-45.0) Monocytes (%) (Auto) 8.7 % (1.0-10.0) Eosinophils (%) (Auto) 2.8 % (0.0-3.0) Basophils (%) (Auto) 1.3 % (0.0-2.0) Sodium Level 141 MMOL/L (136-145) Potassium Level 4.8 MMOL/L (3.5-5.1) Chloride Level 112 MMOL/L (98-107) H Carbon Dioxide Level 19 MMOL/L (21-32) L Anion Gap 10 mmol/L (5-15) Blood Urea Nitrogen 25 mg/dL (7-18) H Creatinine 1.0 MG/DL (0.55-1.30) Estimat Glomerular Filtration Rate 52.7 mL/min (>60) Glucose Level 119 MG/DL (74-106) H Calcium Level 9.7 MG/DL (8.5-10.1) Vancomycin Level Trough 7.7 ug/mL (5.0-12.0) Current Medications Medications (Trade) Dose Ordered Sig/Carl Route PRN Reason Start Time Stop Time Status Last Admin Dose Admin Acetaminophen (Tylenol) 325 mg Q4H PRN ORAL Temp >100.5 04/27/20 11:45 05/27/20 11:44 Acetaminophen (Tylenol) 650 mg Q4H PRN ORAL Mild Pain (Pain Scale 1-3) 04/26/20 18:30 05/26/20 18:29 04/27/20 01:30 Alendronate Sodium (Fosamax) 70 mg ONCE A WEEK ORAL 04/28/20 06:30 05/28/20 06:29 04/28/20 06:16 Amitriptyline HCl (Elavil) 10 mg BEDTIME ORAL 04/27/20 21:00 05/27/20 20:59 04/29/20 21:09 Amlodipine Besylate (Norvasc) 10 mg DAILY ORAL 04/28/20 09:00 05/28/20 08:59 04/30/20 09:26 Amylase/Lipase/ Protease (Jarret DR 36,000 units cap) 1 ea BEFORE MEALS ORAL 04/27/20 16:30 07/26/20 16:29 04/30/20 06:04 Aspirin (ASA) 81 mg DAILY ORAL 04/28/20 09:00 06/12/20 08:59 04/30/20 09:26 Baclofen (Lioresal) 10 mg DAILYPRN PRN ORAL Muscle Spasm 04/27/20 12:15 05/27/20 12:14 Barium Sulfate (Varibar Honey) 250 ml NOW PRN MC RAD 04/27/20 13:30 04/30/20 13:28 Barium Sulfate (Varibar Nambe) 240 ml NOW PRN MC RAD 04/27/20 13:30 04/30/20 13:28 Barium Sulfate (Varibar Pudding) 230 ml NOW PRN MC RAD 04/27/20 13:30 04/30/20 13:28 Barium Sulfate (Varibar Thin Liquid powder) 148 gm NOW PRN MC RAD 04/27/20 13:30 04/30/20 13:28 Bethanechol Chloride (Urecholine) 25 mg THREE TIMES A DAY ORAL 04/27/20 13:00 05/27/20 12:59 04/30/20 09:25 Ceftriaxone Sodium 1 gm/ Dextrose 55 ml @ 110 mls/hr Q24H IVPB 04/27/20 17:00 05/04/20 16:59 04/29/20 17:06 Dextrose/ Electrolytes 1,000 ml @ 50 mls/hr Q20H IV 04/27/20 18:00 05/27/20 17:59 04/30/20 06:03 Docusate Sodium (Colace) 100 mg THREE TIMES A DAY ORAL 04/27/20 18:00 05/27/20 17:59 04/30/20 09:26 Heparin Sodium (Porcine) (Heparin 5000 units/ml) 5,000 units EVERY 12 HOURS SUBQ 04/26/20 21:00 06/10/20 20:59 04/30/20 09:29 Linaclotide (Linzess) 290 mcg DAILY ORAL 04/27/20 14:00 07/26/20 13:59 04/30/20 09:25 Lorazepam (Ativan) 0.5 mg Q8H PRN ORAL For Anxiety 04/27/20 11:45 05/04/20 11:44 Losartan Potassium (Cozaar) 50 mg DAILY ORAL 04/28/20 09:00 05/28/20 08:59 04/30/20 09:26 Megestrol Acetate (Megace) 40 mg BID ORAL 04/27/20 18:00 05/03/20 08:59 04/30/20 09:25 Memantine (Namenda) 10 mg DAILY ORAL 04/28/20 09:00 05/28/20 08:59 04/30/20 09:25 Pantoprazole (Protonix) 40 mg EVERY 12 HOURS ORAL 04/27/20 21:00 05/27/20 20:59 04/30/20 09:26 Trazodone HCl (Desyrel) 50 mg BEDTIME ORAL 04/27/20 21:00 05/27/20 20:59 04/29/20 21:09 Vancomycin HCl (Vanco pharmacy to dose) 1 ea DAILY PRN MISC Per rx protocol 04/28/20 15:30 05/28/20 15:29 Vancomycin HCl 750 mg/Sodium Chloride 275 ml @ 183.333 mls/hr Q12H IVPB 04/30/20 06:00 05/05/20 05:59 04/30/20 06:02 Rolando Márquez MD Apr 30, 2020 09:46
--- NOTE | 2020-04-30 10:05 | Cardiac Electrophysiology PN ---
Assessment/Plan Assessment/Plan 1. Sudden episodes of junctional rhythm and bradycardia while the patient was awake. The patient was on a very small dose of Bystolic that was discontinued 2 days ago. Also discontinued p.r.n. clonidine. Not hypopthyroid. Continues with these junctional episodes even this am while awake after 2 days of being off BB. Echocardiogram showed Nl EF. If the bradycardia persists despite being off Bystolic, she will need a permanent pacemaker placement. 2. Hypertension. Off Bystolic. On losartan 50 mg daily and amlodipine 10 mg daily. 3. UTI, on ceftriaxone. 4. Weakness and failure to thrive. DW RN Not stable for discharge Subjective Subjective Continues with episodes of bradycardia and junctional rhythm while awake. HR as low as 35. No CP or SOB Objective Last 24 Hour Vital Signs Date Time Temp Pulse Resp B/P (MAP) Pulse Ox O2 Delivery O2 Flow Rate FiO2 04/30/20 09:26 112/46 04/30/20 09:26 46 112/46 04/30/20 08:00 96.9 46 20 112/46 (68) 96 04/30/20 04:00 97.8 53 19 104/60 (75) 95 04/30/20 04:00 35 04/30/20 00:13 46 04/30/20 00:00 98.0 55 20 110/62 (78) 94 04/29/20 23:31 39 04/29/20 21:00 Room Air 04/29/20 20:00 47 04/29/20 20:00 97.9 44 20 104/57 (73) 98 04/29/20 16:00 96.6 46 18 122/50 (74) 97 04/29/20 16:00 48 04/29/20 12:00 96.9 70 20 154/68 (96) 98 04/29/20 12:00 85 Intake and Output 04/29/20 04/30/20 19:00 07:00 Intake Total 360 ml 400 ml Balance 360 ml 400 ml Intake Oral 360 ml 400 ml # Voids 3 3 Laboratory Tests Test 04/30/20 04:05 White Blood Count 5.6 K/UL (4.8-10.8) Red Blood Count 3.36 M/UL (4.20-5.40) L Hemoglobin 10.8 G/DL (12.0-16.0) L Hematocrit 31.9 % (37.0-47.0) L Mean Corpuscular Volume 95 FL (80-99) Mean Corpuscular Hemoglobin 32.1 PG (27.0-31.0) H Mean Corpuscular Hemoglobin Concent 33.9 G/DL (32.0-36.0) Red Cell Distribution Width 12.4 % (11.6-14.8) Platelet Count 145 K/UL (150-450) L Mean Platelet Volume 6.7 FL (6.5-10.1) Neutrophils (%) (Auto) 48.5 % (45.0-75.0) Lymphocytes (%) (Auto) 38.5 % (20.0-45.0) Monocytes (%) (Auto) 8.7 % (1.0-10.0) Eosinophils (%) (Auto) 2.8 % (0.0-3.0) Basophils (%) (Auto) 1.3 % (0.0-2.0) Sodium Level 141 MMOL/L (136-145) Potassium Level 4.8 MMOL/L (3.5-5.1) Chloride Level 112 MMOL/L (98-107) H Carbon Dioxide Level 19 MMOL/L (21-32) L Anion Gap 10 mmol/L (5-15) Blood Urea Nitrogen 25 mg/dL (7-18) H Creatinine 1.0 MG/DL (0.55-1.30) Estimat Glomerular Filtration Rate 52.7 mL/min (>60) Glucose Level 119 MG/DL (74-106) H Calcium Level 9.7 MG/DL (8.5-10.1) Vancomycin Level Trough 7.7 ug/mL (5.0-12.0) Microbiology Date/Time Source Procedure Growth Status 04/28/20 19:00 Blood Blood Culture - Preliminary NO GROWTH AFTER 24 HOURS Resulted 04/28/20 18:45 Blood Blood Culture - Preliminary NO GROWTH AFTER 24 HOURS Resulted Objective HEAD AND NECK: No JVD. LUNGS: Clear. CARDIOVASCULAR: Regular S1 and S2 with no gallop or murmur. ABDOMEN: Soft. EXTREMITIES: No pitting edema. Anish Nelson MD Apr 30, 2020 10:05
[2020-04-30 12:00] VITALS: BP 111/48
--- NOTE | 2020-04-30 12:05 | General Progress Note ---
Subjective Constitutional: Reports: weakness Allergies: Coded Allergies: No Known Allergies (Unverified , 04/26/20) All Systems: reviewed and negative except above Subjective calm in bed Objective Last 24 Hour Vital Signs Date Time Temp Pulse Resp B/P (MAP) Pulse Ox O2 Delivery O2 Flow Rate FiO2 04/30/20 09:26 112/46 04/30/20 09:26 46 112/46 04/30/20 09:00 Room Air 04/30/20 08:00 96.9 46 20 112/46 (68) 96 04/30/20 08:00 39 04/30/20 04:00 97.8 53 19 104/60 (75) 95 04/30/20 04:00 35 04/30/20 00:13 46 04/30/20 00:00 98.0 55 20 110/62 (78) 94 04/29/20 23:31 39 04/29/20 21:00 Room Air 04/29/20 20:00 47 04/29/20 20:00 97.9 44 20 104/57 (73) 98 04/29/20 16:00 96.6 46 18 122/50 (74) 97 04/29/20 16:00 48 Intake and Output 04/29/20 04/30/20 19:00 07:00 Intake Total 360 ml 400 ml Balance 360 ml 400 ml Intake Oral 360 ml 400 ml # Voids 3 3 Laboratory Tests 04/30/20 04:05: White Blood Count 5.6, Red Blood Count 3.36L, Hemoglobin 10.8L, Hematocrit 31.9L , Mean Corpuscular Volume 95, Mean Corpuscular Hemoglobin 32.1H, Mean Corpuscular Hemoglobin Concent 33.9, Red Cell Distribution Width 12.4, Platelet Count 145L, Mean Platelet Volume 6.7, Neutrophils (%) (Auto) 48.5, Lymphocytes (%) (Auto) 38.5, Monocytes (%) (Auto) 8.7, Eosinophils (%) (Auto) 2.8, Basophils (%) (Auto) 1.3, Sodium Level 141, Potassium Level 4.8, Chloride Level 112H, Carbon Dioxide Level 19L, Anion Gap 10, Blood Urea Nitrogen 25H, Creatinine 1.0, Estimat Glomerular Filtration Rate 52.7, Glucose Level 119H, Calcium Level 9.7, Vancomycin Level Trough 7.7 Height (Feet): 5 Height (Inches): 2.00 Weight (Pounds): 115 General Appearance: lethargic EENT: normal ENT inspection Neck: normal alignment Cardiovascular: normal peripheral pulses, normal rate, regular rhythm Respiratory/Chest: chest wall non-tender, lungs clear, normal breath sounds Abdomen: normal bowel sounds, non tender, soft Extremities: normal inspection Edema: no edema noted Arm (L), no edema noted Arm (R), no edema noted Leg (L), no edema noted Leg (R), no edema noted Pedal (L), no edema noted Pedal (R), no edema noted Generalized Neurologic: motor weakness Skin: normal pigmentation, warm/dry Assessment/Plan Problem List: (1) HTN (hypertension) ICD Codes: I10 - Essential (primary) hypertension SNOMED: 23974597 (2) Diabetes ICD Codes: E11.9 - Type 2 diabetes mellitus without complications SNOMED: 15896616 (3) Junctional rhythm ICD Codes: I49.8 - Other specified cardiac arrhythmias SNOMED: 31516703 (4) Dehydration ICD Codes: E86.0 - Dehydration SNOMED: 88370926 (5) Failure to thrive SNOMED: 02691841 Qualifiers: Qualified Codes: R62.7 - Adult failure to thrive (6) UTI (urinary tract infection) ICD Codes: N39.0 - Urinary tract infection, site not specified SNOMED: 76542247 Qualifiers: Qualified Codes: N39.0 - Urinary tract infection, site not specified Status: stable, progressing Assessment/Plan: pt diet abx cardio eval cbc bmp am dc w hh when clear by cardio Dakota Calvin DO Apr 30, 2020 12:05
--- NOTE | 2020-04-30 12:09 | General Progress Note ---
Subjective ROS Limited/Unobtainable: No Allergies: Coded Allergies: No Known Allergies (Unverified , 04/26/20) Objective Last 24 Hour Vital Signs Date Time Temp Pulse Resp B/P (MAP) Pulse Ox O2 Delivery O2 Flow Rate FiO2 04/30/20 09:26 112/46 04/30/20 09:26 46 112/46 04/30/20 09:00 Room Air 04/30/20 08:00 96.9 46 20 112/46 (68) 96 04/30/20 08:00 39 04/30/20 04:00 97.8 53 19 104/60 (75) 95 04/30/20 04:00 35 04/30/20 00:13 46 04/30/20 00:00 98.0 55 20 110/62 (78) 94 04/29/20 23:31 39 04/29/20 21:00 Room Air 04/29/20 20:00 47 04/29/20 20:00 97.9 44 20 104/57 (73) 98 04/29/20 16:00 96.6 46 18 122/50 (74) 97 04/29/20 16:00 48 Intake and Output 04/29/20 04/30/20 19:00 07:00 Intake Total 360 ml 400 ml Balance 360 ml 400 ml Intake Oral 360 ml 400 ml # Voids 3 3 Laboratory Tests 04/30/20 04:05: White Blood Count 5.6, Red Blood Count 3.36L, Hemoglobin 10.8L, Hematocrit 31.9L , Mean Corpuscular Volume 95, Mean Corpuscular Hemoglobin 32.1H, Mean Corpuscular Hemoglobin Concent 33.9, Red Cell Distribution Width 12.4, Platelet Count 145L, Mean Platelet Volume 6.7, Neutrophils (%) (Auto) 48.5, Lymphocytes (%) (Auto) 38.5, Monocytes (%) (Auto) 8.7, Eosinophils (%) (Auto) 2.8, Basophils (%) (Auto) 1.3, Sodium Level 141, Potassium Level 4.8, Chloride Level 112H, Carbon Dioxide Level 19L, Anion Gap 10, Blood Urea Nitrogen 25H, Creatinine 1.0, Estimat Glomerular Filtration Rate 52.7, Glucose Level 119H, Calcium Level 9.7, Vancomycin Level Trough 7.7 Height (Feet): 5 Height (Inches): 2.00 Weight (Pounds): 115 General Appearance: alert EENT: normal ENT inspection Neck: supple Cardiovascular: normal rate Respiratory/Chest: decreased breath sounds Abdomen: normal bowel sounds, non tender, soft Extremities: non-tender Assessment/Plan Problem List: (1) Failure to thrive SNOMED: 93788295 Qualifiers: Qualified Codes: R62.7 - Adult failure to thrive (2) UTI (urinary tract infection) ICD Codes: N39.0 - Urinary tract infection, site not specified SNOMED: 45805909 Qualifiers: Qualified Codes: N39.0 - Urinary tract infection, site not specified (3) Dehydration ICD Codes: E86.0 - Dehydration SNOMED: 16843379 Status: stable, progressing Assessment/Plan: passed swallow eval fu calorie count abx fu cardiology recs will fu Bjorn De La Cruz MD Apr 30, 2020 12:09
--- NOTE | 2020-04-30 13:18 | Nephrology Progress Note ---
Assessment/Plan Problem List: (1) Electrolyte imbalance (2) Dehydration (3) Failure to thrive (4) UTI (urinary tract infection) Assessment Dehydration, hypokalemia UTI Failure to thrive History of diabetes mellitus History of hypertension Plan April 30: Status quo. Stable from renal standpoint of view. April 29: Renal parameters stable. Blood pressure stable. Medication list reviewed. Deviously: Slow hydration Adjust blood pressure medication with proper parameters Potassium supplement Monitor electrolytes Per consultants Subjective ROS Limited/Unobtainable: No Constitutional: Reports: malaise Objective Objective Last 24 Hour Vital Signs Date Time Temp Pulse Resp B/P (MAP) Pulse Ox O2 Delivery O2 Flow Rate FiO2 04/30/20 09:26 112/46 04/30/20 09:26 46 112/46 04/30/20 09:00 Room Air 04/30/20 08:00 96.9 46 20 112/46 (68) 96 04/30/20 08:00 39 04/30/20 04:00 97.8 53 19 104/60 (75) 95 04/30/20 04:00 35 04/30/20 00:13 46 04/30/20 00:00 98.0 55 20 110/62 (78) 94 04/29/20 23:31 39 04/29/20 21:00 Room Air 04/29/20 20:00 47 04/29/20 20:00 97.9 44 20 104/57 (73) 98 04/29/20 16:00 96.6 46 18 122/50 (74) 97 04/29/20 16:00 48 Intake and Output 04/29/20 04/30/20 19:00 07:00 Intake Total 360 ml 400 ml Balance 360 ml 400 ml Intake Oral 360 ml 400 ml # Voids 3 3 Laboratory Tests 04/30/20 04:05: White Blood Count 5.6, Red Blood Count 3.36L, Hemoglobin 10.8L, Hematocrit 31.9L , Mean Corpuscular Volume 95, Mean Corpuscular Hemoglobin 32.1H, Mean Corpuscular Hemoglobin Concent 33.9, Red Cell Distribution Width 12.4, Platelet Count 145L, Mean Platelet Volume 6.7, Neutrophils (%) (Auto) 48.5, Lymphocytes (%) (Auto) 38.5, Monocytes (%) (Auto) 8.7, Eosinophils (%) (Auto) 2.8, Basophils (%) (Auto) 1.3, Sodium Level 141, Potassium Level 4.8, Chloride Level 112H, Carbon Dioxide Level 19L, Anion Gap 10, Blood Urea Nitrogen 25H, Creatinine 1.0, Estimat Glomerular Filtration Rate 52.7, Glucose Level 119H, Calcium Level 9.7, Vancomycin Level Trough 7.7 Height (Feet): 5 Height (Inches): 2.00 Weight (Pounds): 115 General Appearance: no apparent distress Objective No change Maximilian Guillen MD Apr 30, 2020 13:18
[2020-04-30 16:00] VITALS: BP 120/76
[2020-04-30] MEDS: cefTRIAXone 1 GM in D5W 55 ML IVPB SCH (17:06)
[2020-04-30 20:00] VITALS: BP 135/60
[2020-04-30] MEDS: TraZODone 50mg tab ORAL SCH (20:27)
[2020-05-01] VITALS (22 sets, daily range): BP systolic 115–174; BP diastolic 49–118
--- NOTE | 2020-05-01 01:44 | Consultation ---
DATE OF CONSULTATION: 04/30/2020 The patient is an 85-year-old female patient admitted to the hospital because she has failure to thrive and urinary tract infection. She lives in a private residence, but she is very confused, disorganized as well. Because of her failure to thrive and her altered mental status, psychiatric consultation was requested to evaluate this patient because of her altered mental status, confusion maybe a mood disorder as well as confusion. On interview, she is little confused, disorganized, conversation. She does deny any suicidal or homicidal ideation. MEDICAL HISTORY: Urinary tract infection, hypertension. ALLERGIES: No known drug allergies. PSYCHOTROPIC MEDICATIONS ON ADMISSION: The patient is on Elavil at a dose of 25 mg at bedtime for depression, anxiety, and she is also on Namenda 10 mg daily. PAIN ASSESSMENT: 3 out of 10 pain. SUBSTANCE ABUSE HISTORY: There is no known history of any drug or alcohol use. FAMILY PSYCHIATRIC HISTORY: Denies. DEVELOPMENTAL PROBLEMS: Denies. SOCIAL HISTORY: The patient lives in a private residence. Financially supported by [employer] and Medicare. STRENGTHS: She is motivated to get better. She is healthy. WEAKNESSES: She is impulsive, minimal support system. MENTAL STATUS EXAMINATION: This is an 85-year-old female. Her appearance is disheveled. Attitude irritable and agitated. Affect guarded and restricted. Intellect poor as she does not know current events, does not know last four presidents. Mood depressed and anxious. Motor activity, psychomotor agitation. Attention span is poor. She cannot do serial 7's or spell world backwards. Orientation x2. She is oriented to place and person, not to time or situation. Speech nonsensical. Thought process, disorganized and illogical. Thought content, she has paranoid delusions. Perception is poor due to perceptual disturbances such as paranoid delusions. Abstract reasoning is poor because she does not understand proverbs and only has concrete thinking. Insight is poor because she does not recognize having a psych disorder. Judgment is poor because she does not accept consequences for her actions. No signs of any suicidal thoughts. Short-term memory, 0 out 3 after 3-word recall, so poor short-term memory. Long-term memory is intact based on the knowledge of recall long-term events in her life such as high school that she went to. DIAGNOSES: 1. Major depressive disorder, severe, recurrent with psychotic features. 2. No secondary. 3. Medical, denied. 4. Psychosocial stressors, financial. 5. Functional impairment is mild. PLAN: Treat this patient with a medication regimen of Namenda 10 mg daily. Also, she is started on Aricept . 20 minutes of cognitive behavioral therapy to help her identify automatic negative thoughts and help her convert her negative thoughts to more positive thoughts to reduce depression, anxiety, mood lability. Estimated length of length 3 to 7 days. . She will continue to be followed by Psychiatry throughout hospital course . Chart reviewed. Discussed with staff. Seen and assessed at the bedside. Twin Flores M.D. DR: CLAU JOB#: [id number] CC:
[2020-05-01] MEDS: D5 1/2NS w/KCl 40meq 1000ml 1,000 ML IV SCH ×2 (02:25→18:49)
[2020-05-01] MEDS: Creon DR 36,000 units cap ORAL SCH ×3 (05:52→17:41)
[2020-05-01 06:42] LABS: EOSINOPHILS % (AUTO) 3.7 % (0.0-3.0); HEMOGLOBIN 11.7 G/DL (12.0-16.0); MEAN CORPUSCULAR VOLUME 95 FL (80-99); MONOCYTES % (AUTO) 7.9 % (1.0-10.0); NEUTROPHILS % (AUTO) 44.5 % (45.0-75.0); PLATELET COUNT 157 K/UL (150-450); RED BLOOD COUNT 3.59 M/UL (4.20-5.40); RED CELL DISTRIBUTION WIDTH 12.4 % (11.6-14.8); WHITE BLOOD COUNT 5.3 K/UL (4.8-10.8)
[2020-05-01 07:01] LABS: ANION GAP 11 mmol/L (5-15); BLOOD UREA NITROGEN 13 mg/dL (7-18); CALCIUM 9.3 MG/DL (8.5-10.1); CARBON DIOXIDE 20 MMOL/L (21-32); CHLORIDE 109 MMOL/L (98-107); CREATININE 0.7 MG/DL (0.55-1.30); POTASSIUM 4.3 MMOL/L (3.5-5.1); SODIUM 140 MMOL/L (136-145)
--- NOTE | 2020-05-01 08:07 | Consultation ---
History of Present Illness General Chief Complaint: Generalized Weakness Present Illness Allergies: Coded Allergies: No Known Allergies (Unverified , 04/26/20) Medication History Scheduled Acyclovir* (Acyclovir*), 400 MG ORAL FOUR TIMES A DAY, (Reported) Alendronate Sodium* (Fosamax*), 70 MG ORAL ONCE A WEEK, (Reported) Amitriptyline HCl (Elavil*), 10 MG ORAL BEDTIME, (Reported) Amlodipine Besylate* (Amlodipine Besylate*), 10 MG ORAL DAILY, (Reported) Aspirin* (Aspirin*), 81 MG ORAL DAILY, (Reported) Baclofen* (Baclofen*), 10 MG ORAL PRN, (Reported) Bethanechol Chl (Bethanechol Chloride), 25 MG ORAL THREE TIMES A DAY, (Reported) Calcium Carb/Mag Hydrox/Simeth (Mylanta Tonight 800-270-80/10), 355 ML PO PRN, (Reported) Cholecalciferol (Vitamin D3) (Vitamin D3), 2 TAB PO DAILY, (Reported) Cholecalciferol (Vitamin D3) (Vitamin D3), 50 MCG PO DAILY, (Reported) Esomeprazole Magnesium (Esomeprazole Magnesium), 40 MG PO DAILY, (Reported) Febuxostat (Uloric), 40 MG ORAL DAILY, (Reported) Icosapent Ethyl (Vascepa), 1 GM PO BID, (Reported) Levocetirizine Dihydrochloride (Levocetirizine Dihydrochloride), 5 MG ORAL DAILY, (Reported) Linaclotide (Linzess), 290 MCG PO HS, (Reported) Lipase/Protease/Amylase (Creon Dr 36,000 Units Capsule), 1 EACH PO EVERY 8 HOURS, (Reported) Lorazepam (Lorazepam Intensol), 0.5 MG ORAL Q4HR, (Reported) Losartan Potassium* (Losartan Potassium*), 50 MG ORAL DAILY, (Reported) Magnesium Oxide (Magnesium Oxide), 400 MG PO BEDTIME, (Reported) Meclizine Hcl* (Meclizine*), 12.5 MG ORAL THREE TIMES A DAY, (Reported) Megestrol Acetate (Megestrol Acetate), 40 MG PO DAILY, (Reported) Memantine Hcl* (Namenda*), 10 MG ORAL DAILY, (Reported) Nebivolol Hcl* (Bystolic*), 5 MG ORAL DAILY, (Reported) Olopatadine HCl (Pazeo), 2.5 ML OP DAILY, (Reported) Ondansetron* (Zofran*), 4 MG ORAL DAILY, (Reported) Prazosin Hcl* (Minipress*), 1 MG PO BEDTIME, (Reported) Rosuvastatin Calcium* (Crestor*), 20 MG ORAL HS, (Reported) Suvorexant (Belsomra), 15 MG PO HS, (Reported) Trazodone Hcl* (Desyrel*), 50 MG ORAL BEDTIME, (Reported) Triamterene/Hydrochlorothiazide* (Dyazide 37.5-25 Mg Tab*), 1 TAB ORAL DAILY, (Reported) Scheduled PRN Acetaminophen* (Acetaminophen 325MG Tablet*), 325 MG ORAL Q4H PRN for Temp >100.5, (Reported) Clonidine Hcl* (Catapres*), 0.1 MG ORAL Q12HR PRN for For High Blood Pressure, (Reported) Lorazepam* (Ativan*), 0.5 MG ORAL Q8HR PRN for For Anxiety, (Reported) Miscellaneous Medications Memantine HCl/Donepezil HCl (Namzaric 14 mg-10 mg Capsule), 1 EACH PO, (Reported) Discontinued Medications Trazodone Hcl (Trazodone Hcl), Unknown Dose ORAL BEDTIME, (Reported) Discontinued Reason: Prescription changed Patient History Healthcare decision maker Resuscitation status Advanced Directive on File Physical Exam Last 24 Hour Vital Signs Date Time Temp Pulse Resp B/P (MAP) Pulse Ox O2 Delivery O2 Flow Rate FiO2 05/01/20 07:17 97.2 72 18 174/67 (102) 97 05/01/20 04:00 97.7 65 18 115/55 (75) 97 05/01/20 04:00 71 05/01/20 00:00 98.6 70 18 129/54 (79) 98 05/01/20 00:00 72 04/30/20 21:00 Room Air 04/30/20 20:00 71 04/30/20 20:00 97.7 75 18 135/60 (85) 98 04/30/20 16:00 47 04/30/20 16:00 97.7 18 120/76 (91) 97 04/30/20 12:00 43 04/30/20 12:00 97.6 44 20 111/48 (69) 99 04/30/20 09:26 112/46 04/30/20 09:26 46 112/46 04/30/20 09:00 Room Air Intake and Output 04/30/20 05/01/20 19:00 07:00 Intake Total 600 ml 400 ml Balance 600 ml 400 ml Intake Oral 600 ml 400 ml # Voids 3 3 Laboratory Tests Test 05/01/20 05:40 White Blood Count 5.3 K/UL (4.8-10.8) Red Blood Count 3.59 M/UL (4.20-5.40) L Hemoglobin 11.7 G/DL (12.0-16.0) L Hematocrit 34.0 % (37.0-47.0) L Mean Corpuscular Volume 95 FL (80-99) Mean Corpuscular Hemoglobin 32.6 PG (27.0-31.0) H Mean Corpuscular Hemoglobin Concent 34.4 G/DL (32.0-36.0) Red Cell Distribution Width 12.4 % (11.6-14.8) Platelet Count 157 K/UL (150-450) Mean Platelet Volume 6.2 FL (6.5-10.1) L Neutrophils (%) (Auto) 44.5 % (45.0-75.0) L Lymphocytes (%) (Auto) 43.0 % (20.0-45.0) Monocytes (%) (Auto) 7.9 % (1.0-10.0) Eosinophils (%) (Auto) 3.7 % (0.0-3.0) H Basophils (%) (Auto) 1.0 % (0.0-2.0) Sodium Level 140 MMOL/L (136-145) Potassium Level 4.3 MMOL/L (3.5-5.1) Chloride Level 109 MMOL/L (98-107) H Carbon Dioxide Level 20 MMOL/L (21-32) L Anion Gap 11 mmol/L (5-15) Blood Urea Nitrogen 13 mg/dL (7-18) Creatinine 0.7 MG/DL (0.55-1.30) Estimat Glomerular Filtration Rate > 60 mL/min (>60) Glucose Level 103 MG/DL (74-106) Calcium Level 9.3 MG/DL (8.5-10.1) Troponin I 0.008 ng/mL (0.000-0.056) Height (Feet): 5 Height (Inches): 2.00 Weight (Pounds): 115 Medications Current Medications Medications (Trade) Dose Ordered Sig/Carl Route PRN Reason Start Time Stop Time Status Last Admin Dose Admin Acetaminophen (Tylenol) 325 mg Q4H PRN ORAL Temp >100.5 04/27/20 11:45 05/27/20 11:44 Acetaminophen (Tylenol) 650 mg Q4H PRN ORAL Mild Pain (Pain Scale 1-3) 04/26/20 18:30 05/26/20 18:29 04/27/20 01:30 Alendronate Sodium (Fosamax) 70 mg ONCE A WEEK ORAL 04/28/20 06:30 05/28/20 06:29 04/28/20 06:16 Amitriptyline HCl (Elavil) 10 mg BEDTIME ORAL 04/27/20 21:00 05/27/20 20:59 04/30/20 20:27 Amlodipine Besylate (Norvasc) 10 mg DAILY ORAL 04/28/20 09:00 05/28/20 08:59 04/30/20 09:26 Amylase/Lipase/ Protease (Jarret DR 36,000 units cap) 1 ea BEFORE MEALS ORAL 04/27/20 16:30 07/26/20 16:29 05/01/20 05:52 Aspirin (ASA) 81 mg DAILY ORAL 04/28/20 09:00 06/12/20 08:59 04/30/20 09:26 Baclofen (Lioresal) 10 mg DAILYPRN PRN ORAL Muscle Spasm 04/27/20 12:15 05/27/20 12:14 Bethanechol Chloride (Urecholine) 25 mg THREE TIMES A DAY ORAL 04/27/20 13:00 05/27/20 12:59 04/30/20 17:06 Ceftriaxone Sodium 1 gm/ Dextrose 55 ml @ 110 mls/hr Q24H IVPB 04/27/20 17:00 05/04/20 16:59 04/30/20 17:06 Dextrose/ Electrolytes 1,000 ml @ 50 mls/hr Q20H IV 04/27/20 18:00 05/27/20 17:59 05/01/20 02:25 Docusate Sodium (Colace) 100 mg THREE TIMES A DAY ORAL 04/27/20 18:00 05/27/20 17:59 04/30/20 14:24 Heparin Sodium (Porcine) (Heparin 5000 units/ml) 5,000 units EVERY 12 HOURS SUBQ 04/26/20 21:00 06/10/20 20:59 04/30/20 20:28 Linaclotide (Linzess) 290 mcg DAILY ORAL 04/27/20 14:00 07/26/20 13:59 04/30/20 09:25 Lorazepam (Ativan) 0.5 mg Q8H PRN ORAL For Anxiety 04/27/20 11:45 05/04/20 11:44 Losartan Potassium (Cozaar) 50 mg DAILY ORAL 04/28/20 09:00 05/28/20 08:59 04/30/20 09:26 Megestrol Acetate (Megace) 40 mg BID ORAL 04/27/20 18:00 05/03/20 08:59 04/30/20 17:05 Memantine (Namenda) 10 mg DAILY ORAL 04/28/20 09:00 05/28/20 08:59 04/30/20 09:25 Pantoprazole (Protonix) 40 mg EVERY 12 HOURS ORAL 04/27/20 21:00 05/27/20 20:59 04/30/20 20:27 Trazodone HCl (Desyrel) 50 mg BEDTIME ORAL 04/27/20 21:00 05/27/20 20:59 04/30/20 20:27 Assessment/Plan Assessment/Plan: Hematology Consultation REQ : Dakota Calvin C: FTT DOS 05/01/2020 HPI Was to be discharged, had SB overnight, to be transferred to icu in am today. Initally, patient presents with generalized weakness. This is been progressing over the last week to 2 weeks. She is not been eating well. She feels dehydrated and her mouth is dry. She takes medication for high blood pressure but denies any diabetes. She denies any fevers or chills. There is no nausea, vomiting or diarrhea. She denies pain but is unable to get about at her home. Family has been coming in to give her food but she is been refusing to eat. She denies cough or dysuria but says that she has problems voiding. She is not moved her bowels for several days. Granddaughter (Jennifer ) states appetite less 5 years after . Also unable to go to [facility] due to COVID. No sore throat, shortness of breath, joint pain, rashes, visual changes, dizziness, headache. Has a decreased bmi, heme consulted for eval and rx Allergies: No Known Allergies (Unverified , 04/26/20) COVID-19 Screening Contact w/high risk pt: No Experienced COVID-19 symptoms?: No COVID-19 Testing performed GEOPHYSICAL SUPPORT SPECIALIST: No Patient History Past Medical History: see triage record Social History: Denies: smoking, alcohol use, drug use Social History Narrative lives by self. Family helps (GD = Jennifer) Reviewed Nursing Documentation: PMH: Agreed; PSxH: Agreed Nursing Documentation-PMH Past Medical History: No History, Except For Hx Hypertension: Yes Review of Systems All Other Systems: negative except mentioned in HPI PE: Vitals: reviewed, stable General Appearance: NAD HEENT: normocephalic, atraumatic Neck: non-tender, normal alignment Respiratory/Chest: normal breath sounds bilaterally Cardiovascular/Chest: normal peripheral pulses, normal rate Abdomen: normal bowel sounds, soft, nontender Extremities: normal range of motion Labs: noted Imaging: reviewed Assessment and Recs # Failure to thrive (FTT) - decreased bmi and low protein --> have ordered for cea level --> will obtain q3 day caloric counts --> may consider mirtazapine as appetite stimulant --> GI consult on a prn basis, as needed for endosc # Anemia of chronic disease due to underlying chronic medical issues, m ultifactorial v Gi bleed --> Anemia workup has been ordered, rule out gi bleed --> No evidence of hemolysis is noted, peripheral smear has been reviewed. --> Hgb goal >7. Transfuse prn. --> Epogen or iron at this time is not particularly indicated --> Medications have been reviewed # UTI (urinary tract infection) --> abx as per id, recs noted # Dehydration --> goal of euvolemia, ivf started # Situational depression --> per psych care # Sinus bradycardia --> persistent, to need PM per TOluie # Hypertension. Off Bystolic. On losartan 50 mg daily and amlodipine 10 mg daily. --> cards recs # Weakness and failure to thrive Appreciate consultation and dw Mikey Gordillo MD May 01, 2020 08:07
--- NOTE | 2020-05-01 08:35 | Initial Psychiatric Evaluation ---
Psychiatry Consultation Psychiatry Consultation Chief Complaint: Generalized Weakness History of Present Illness: 85-year-old female she is confused disorganized and she has a decline in cog nition below her baseline she came down with generalized weakness and she got other medical problems such as hypertension and neuropathy but because of her medical illnesses her cognition has declined below baseline she developed altered mental status and generalized weakness as well her attending is requested daily psychiatric rotation to prevent any further decline in her cognition she was seen and assessed at bedside Mental status examination: 85-year-old female her appearance is disheveled attitude about sad affect guarded restricted intellect poor mood depressed anxious monitor present, agitation attention was poor attention x2 speech is low volume slurred thought processes organized logical thought content hallucinations paranoid delusio Allergies: Coded Allergies: No Known Allergies (Unverified , 04/26/20) Medication History Scheduled Acyclovir* (Acyclovir*), 400 MG ORAL FOUR TIMES A DAY, (Reported) Alendronate Sodium* (Fosamax*), 70 MG ORAL ONCE A WEEK, (Reported) Amitriptyline HCl (Elavil*), 10 MG ORAL BEDTIME, (Reported) Amlodipine Besylate* (Amlodipine Besylate*), 10 MG ORAL DAILY, (Reported) Aspirin* (Aspirin*), 81 MG ORAL DAILY, (Reported) Baclofen* (Baclofen*), 10 MG ORAL PRN, (Reported) Bethanechol Chl (Bethanechol Chloride), 25 MG ORAL THREE TIMES A DAY, (Reported) Calcium Carb/Mag Hydrox/Simeth (Mylanta Tonight 800-270-80/10), 355 ML PO PRN, (Reported) Cholecalciferol (Vitamin D3) (Vitamin D3), 2 TAB PO DAILY, (Reported) Cholecalciferol (Vitamin D3) (Vitamin D3), 50 MCG PO DAILY, (Reported) Esomeprazole Magnesium (Esomeprazole Magnesium), 40 MG PO DAILY, (Reported) Febuxostat (Uloric), 40 MG ORAL DAILY, (Reported) Icosapent Ethyl (Vascepa), 1 GM PO BID, (Reported) Levocetirizine Dihydrochloride (Levocetirizine Dihydrochloride), 5 MG ORAL DAILY, (Reported) Linaclotide (Linzess), 290 MCG PO HS, (Reported) Lipase/Protease/Amylase (Creon Dr 36,000 Units Capsule), 1 EACH PO EVERY 8 HOURS, (Reported) Lorazepam (Lorazepam Intensol), 0.5 MG ORAL Q4HR, (Reported) Losartan Potassium* (Losartan Potassium*), 50 MG ORAL DAILY, (Reported) Magnesium Oxide (Magnesium Oxide), 400 MG PO BEDTIME, (Reported) Meclizine Hcl* (Meclizine*), 12.5 MG ORAL THREE TIMES A DAY, (Reported) Megestrol Acetate (Megestrol Acetate), 40 MG PO DAILY, (Reported) Memantine Hcl* (Namenda*), 10 MG ORAL DAILY, (Reported) Nebivolol Hcl* (Bystolic*), 5 MG ORAL DAILY, (Reported) Olopatadine HCl (Pazeo), 2.5 ML OP DAILY, (Reported) Ondansetron* (Zofran*), 4 MG ORAL DAILY, (Reported) Prazosin Hcl* (Minipress*), 1 MG PO BEDTIME, (Reported) Rosuvastatin Calcium* (Crestor*), 20 MG ORAL HS, (Reported) Suvorexant (Belsomra), 15 MG PO HS, (Reported) Trazodone Hcl* (Desyrel*), 50 MG ORAL BEDTIME, (Reported) Triamterene/Hydrochlorothiazide* (Dyazide 37.5-25 Mg Tab*), 1 TAB ORAL DAILY, (Reported) Scheduled PRN Acetaminophen* (Acetaminophen 325MG Tablet*), 325 MG ORAL Q4H PRN for Temp >100.5, (Reported) Clonidine Hcl* (Catapres*), 0.1 MG ORAL Q12HR PRN for For High Blood Pressure, (Reported) Lorazepam* (Ativan*), 0.5 MG ORAL Q8HR PRN for For Anxiety, (Reported) Miscellaneous Medications Memantine HCl/Donepezil HCl (Namzaric 14 mg-10 mg Capsule), 1 EACH PO, (Reported) Discontinued Medications Trazodone Hcl (Trazodone Hcl), Unknown Dose ORAL BEDTIME, (Reported) Discontinued Reason: Prescription changed Objective Data Height (Feet): 5 Height (Inches): 2.00 Weight (Pounds): 115 Assessment/Plan Assessment/Plan: Treat this patient with a medication regimen of Namenda 10 mg daily trazodone 50 mg nightly cognitive behavioral therapy, identifies on the negative thoughts (negative thoughts to more positive thoughts to reduce depression anxiety mood lability Diagnosis [place] I: 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
[2020-05-01] MEDS: Docusate 100mg cap ORAL SCH (09:00)
--- NOTE | 2020-05-01 09:37 | Cardiology Report ---
APPROVED REPORT EXAM: Two-dimensional and M-mode echocardiogram with Doppler and color Doppler. INDICATION Bradycardia M-Mode DIMENSIONS IVSd0.7 (0.7-1.1cm)Left Atrium (MM)3.6 (1.6-4.0cm) LVDd5.2 (3.5-5.6cm)Aortic Root2.6 (2.0-3.7cm) PWd0.9 (0.7-1.1cm)Aortic Cusp Exc.1.8 (1.5-2.0cm) IVSs1.6 cmEPSS0.6 (>1.0cm) LVDs3.3 (2.5-4.0cm) PWs1.6 cm <Conclusion> Normal left ventricular chamber size, systolic function and wall motion. Left ventricular ejection fraction estimated to be 60-65 %. No evidence of left ventricular hypertrophy. No evidence of pericardial effusion. All other cardiac chamber sizes are within normal limits. Focal aortic valve sclerosis with adequate cusp excursion. Thickened mitral valve leaflets with normal excursion. Mitral annulus and aortic root calcification. Pulmonic valve not well visualized. Normal tricuspid valve structure. IVC at normal size and collapsing with respiration. A color flow and spectral Doppler study was performed and revealed: Mild to moderate aortic regurgitation. Trace to mild mitral regurgitation. Mitral diastolic velocities suggest reduced left ventricular relaxation c/w mild diastolic dysfunction (Grade I). Trace tricuspid regurgitation. Tricuspid systolic velocities suggests peak right ventricular systolic pressure of 20 mmHg. Mild pulmonic regurgitation present.
--- NOTE | 2020-05-01 09:55 | Infectious Diseases Prog Note ---
Assessment/Plan Assessment: COVID19 neg x1 (04/26 rapid COVID PCR neg) -04/26 CXR: Mild accentuation of interstitial markings. No consolidation. Pyuria/bacteriuria- UTI c/w bacteremia -u/a wbc 10-25, nit neg, leuk +3; ucx <10k E.coli, 10-20k dpheroids Bacteremia- Likely a contaminant -04/26 Bcx 1/ SPHINGOMONAS PAUCIMOBILIS , GNR; 04/28 Bx Neg to date Afebrile No leukocytosis FTT Generalized weakness -CT head: No acute intracranial abnormality. Global parenchymal atrophy and chronic microvascular ischemic changes. HTN Plan: - Monitor off abx - 05/01/20 SP c Ceftriaxone #6 - 04/30/20 SP IV vancomycin #5 pending Bcx -f/u cx -Monitor CBC/CMP, temperatures -f/u repeat Bcx x2 Thank you for consulting [facility]. Will continue to follow along with you. Discussed gilda UNDERWOOD. Subjective Allergies: Coded Allergies: No Known Allergies (Unverified , 04/26/20) Afebrile No Leukocytosis Satting well on RA AMERICO Objective Last 24 Hour Vital Signs Date Time Temp Pulse Resp B/P (MAP) Pulse Ox O2 Delivery O2 Flow Rate FiO2 05/01/20 08:22 149/68 (95) 05/01/20 08:16 Room Air 05/01/20 08:00 76 05/01/20 07:17 97.2 72 18 174/67 (102) 97 05/01/20 04:00 97.7 65 18 115/55 (75) 97 05/01/20 04:00 71 05/01/20 00:00 98.6 70 18 129/54 (79) 98 05/01/20 00:00 72 04/30/20 21:00 Room Air 04/30/20 20:00 71 04/30/20 20:00 97.7 75 18 135/60 (85) 98 04/30/20 16:00 47 04/30/20 16:00 97.7 18 120/76 (91) 97 04/30/20 12:00 43 04/30/20 12:00 97.6 44 20 111/48 (69) 99 Height (Feet): 5 Height (Inches): 2.00 Weight (Pounds): 115 GENERAL: NAD LUNGS: Equal rise and fall of chest B/L ABDOMEN: Bowel sound positive. Nontender. Nondistended. EXTREMITIES: No cyanosis, clubbing, or edema. Microbiology Date/Time Source Procedure Growth Status 04/28/20 19:00 Blood Blood Culture - Preliminary NO GROWTH AFTER 48 HOURS Resulted 04/28/20 18:45 Blood Blood Culture - Preliminary NO GROWTH AFTER 48 HOURS Resulted Laboratory Tests Test 05/01/20 05:40 White Blood Count 5.3 K/UL (4.8-10.8) Red Blood Count 3.59 M/UL (4.20-5.40) L Hemoglobin 11.7 G/DL (12.0-16.0) L Hematocrit 34.0 % (37.0-47.0) L Mean Corpuscular Volume 95 FL (80-99) Mean Corpuscular Hemoglobin 32.6 PG (27.0-31.0) H Mean Corpuscular Hemoglobin Concent 34.4 G/DL (32.0-36.0) Red Cell Distribution Width 12.4 % (11.6-14.8) Platelet Count 157 K/UL (150-450) Mean Platelet Volume 6.2 FL (6.5-10.1) L Neutrophils (%) (Auto) 44.5 % (45.0-75.0) L Lymphocytes (%) (Auto) 43.0 % (20.0-45.0) Monocytes (%) (Auto) 7.9 % (1.0-10.0) Eosinophils (%) (Auto) 3.7 % (0.0-3.0) H Basophils (%) (Auto) 1.0 % (0.0-2.0) Sodium Level 140 MMOL/L (136-145) Potassium Level 4.3 MMOL/L (3.5-5.1) Chloride Level 109 MMOL/L (98-107) H Carbon Dioxide Level 20 MMOL/L (21-32) L Anion Gap 11 mmol/L (5-15) Blood Urea Nitrogen 13 mg/dL (7-18) Creatinine 0.7 MG/DL (0.55-1.30) Estimat Glomerular Filtration Rate > 60 mL/min (>60) Glucose Level 103 MG/DL (74-106) Calcium Level 9.3 MG/DL (8.5-10.1) Troponin I 0.008 ng/mL (0.000-0.056) Carcinoembryonic Antigen Pending Current Medications Medications (Trade) Dose Ordered Sig/Carl Route PRN Reason Start Time Stop Time Status Last Admin Dose Admin Acetaminophen (Tylenol) 325 mg Q4H PRN ORAL Temp >100.5 04/27/20 11:45 05/27/20 11:44 Acetaminophen (Tylenol) 650 mg Q4H PRN ORAL Mild Pain (Pain Scale 1-3) 04/26/20 18:30 05/26/20 18:29 04/27/20 01:30 Alendronate Sodium (Fosamax) 70 mg ONCE A WEEK ORAL 04/28/20 06:30 05/28/20 06:29 04/28/20 06:16 Amitriptyline HCl (Elavil) 10 mg BEDTIME ORAL 04/27/20 21:00 05/27/20 20:59 04/30/20 20:27 Amlodipine Besylate (Norvasc) 10 mg DAILY ORAL 04/28/20 09:00 05/28/20 08:59 04/30/20 09:26 Amylase/Lipase/ Protease (Jarret JC 36,000 units cap) 1 ea BEFORE MEALS ORAL 04/27/20 16:30 07/26/20 16:29 05/01/20 05:52 Aspirin (ASA) 81 mg DAILY ORAL 04/28/20 09:00 06/12/20 08:59 04/30/20 09:26 Baclofen (Lioresal) 10 mg DAILYPRN PRN ORAL Muscle Spasm 04/27/20 12:15 05/27/20 12:14 Bethanechol Chloride (Urecholine) 25 mg THREE TIMES A DAY ORAL 04/27/20 13:00 05/27/20 12:59 04/30/20 17:06 Ceftriaxone Sodium 1 gm/ Dextrose 55 ml @ 110 mls/hr Q24H IVPB 04/27/20 17:00 05/04/20 16:59 04/30/20 17:06 Dextrose/ Electrolytes 1,000 ml @ 50 mls/hr Q20H IV 04/27/20 18:00 05/27/20 17:59 05/01/20 02:25 Docusate Sodium (Colace) 100 mg THREE TIMES A DAY ORAL 04/27/20 18:00 05/27/20 17:59 04/30/20 14:24 Heparin Sodium (Porcine) (Heparin 5000 units/ml) 5,000 units EVERY 12 HOURS SUBQ 04/26/20 21:00 06/10/20 20:59 04/30/20 20:28 Linaclotide (Linzess) 290 mcg DAILY ORAL 04/27/20 14:00 07/26/20 13:59 04/30/20 09:25 Lorazepam (Ativan) 0.5 mg Q8H PRN ORAL For Anxiety 04/27/20 11:45 05/04/20 11:44 Losartan Potassium (Cozaar) 50 mg DAILY ORAL 04/28/20 09:00 05/28/20 08:59 04/30/20 09:26 Megestrol Acetate (Megace) 40 mg BID ORAL 04/27/20 18:00 05/03/20 08:59 04/30/20 17:05 Memantine (Namenda) 10 mg DAILY ORAL 04/28/20 09:00 05/28/20 08:59 04/30/20 09:25 Pantoprazole (Protonix) 40 mg EVERY 12 HOURS ORAL 04/27/20 21:00 05/27/20 20:59 04/30/20 20:27 Trazodone HCl (Desyrel) 50 mg BEDTIME ORAL 04/27/20 21:00 05/27/20 20:59 04/30/20 20:27 Rolando Márquez MD May 01, 2020 09:55
--- NOTE | 2020-05-01 10:00 | General Progress Note ---
Subjective Constitutional: Reports: weakness Allergies: Coded Allergies: No Known Allergies (Unverified , 04/26/20) All Systems: reviewed and negative except above Subjective calm in bed in icu Objective Last 24 Hour Vital Signs Date Time Temp Pulse Resp B/P (MAP) Pulse Ox O2 Delivery O2 Flow Rate FiO2 05/01/20 08:22 149/68 (95) 05/01/20 08:16 Room Air 05/01/20 08:00 76 05/01/20 07:17 97.2 72 18 174/67 (102) 97 05/01/20 04:00 97.7 65 18 115/55 (75) 97 05/01/20 04:00 71 05/01/20 00:00 98.6 70 18 129/54 (79) 98 05/01/20 00:00 72 04/30/20 21:00 Room Air 04/30/20 20:00 71 04/30/20 20:00 97.7 75 18 135/60 (85) 98 04/30/20 16:00 47 04/30/20 16:00 97.7 18 120/76 (91) 97 04/30/20 12:00 43 04/30/20 12:00 97.6 44 20 111/48 (69) 99 Intake and Output 04/30/20 05/01/20 18:59 06:59 Intake Total 600 ml 400 ml Balance 600 ml 400 ml Intake Oral 600 ml 400 ml # Voids 3 3 Laboratory Tests 05/01/20 05:40: White Blood Count 5.3, Red Blood Count 3.59L, Hemoglobin 11.7L, Hematocrit 34.0L , Mean Corpuscular Volume 95, Mean Corpuscular Hemoglobin 32.6H, Mean Corpuscular Hemoglobin Concent 34.4, Red Cell Distribution Width 12.4, Platelet Count 157, Mean Platelet Volume 6.2L, Neutrophils (%) (Auto) 44.5L, Lymphocytes (%) (Auto) 43.0, Monocytes (%) (Auto) 7.9, Eosinophils (%) (Auto) 3.7H, Basophils (%) (Auto) 1.0, Sodium Level 140, Potassium Level 4.3, Chloride Level 109H, Carbon Dioxide Level 20L, Anion Gap 11, Blood Urea Nitrogen 13, Creatinine 0.7, Estimat Glomerular Filtration Rate > 60, Glucose Level 103, Calcium Level 9.3, Troponin I 0.008, Carcinoembryonic Antigen [Pending] Height (Feet): 5 Height (Inches): 2.00 Weight (Pounds): 115 General Appearance: lethargic EENT: normal ENT inspection Neck: normal alignment Cardiovascular: normal peripheral pulses, normal rate, regular rhythm Respiratory/Chest: chest wall non-tender, lungs clear, normal breath sounds Abdomen: normal bowel sounds, non tender, soft Extremities: normal inspection Edema: no edema noted Arm (L), no edema noted Arm (R), no edema noted Leg (L), no edema noted Leg (R), no edema noted Pedal (L), no edema noted Pedal (R), no edema noted Generalized Neurologic: motor weakness Skin: normal pigmentation, warm/dry Assessment/Plan Problem List: (1) HTN (hypertension) ICD Codes: I10 - Essential (primary) hypertension SNOMED: 12753383 (2) Diabetes ICD Codes: E11.9 - Type 2 diabetes mellitus without complications SNOMED: 95266691 (3) Junctional rhythm ICD Codes: I49.8 - Other specified cardiac arrhythmias SNOMED: 64880373 (4) Dehydration ICD Codes: E86.0 - Dehydration SNOMED: 94506807 (5) Failure to thrive SNOMED: 93837718 Qualifiers: Qualified Codes: R62.7 - Adult failure to thrive (6) UTI (urinary tract infection) ICD Codes: N39.0 - Urinary tract infection, site not specified SNOMED: 32870835 Qualifiers: Qualified Codes: N39.0 - Urinary tract infection, site not specified Status: stable, progressing Assessment/Plan: pt diet abx cardio eval cbc bmp am dc w hh when clear by Dakota Barry DO May 01, 2020 10:00
[2020-05-01] MEDS: Bethanechol 25mg Tab ORAL SCH ×3 (10:03→17:41)
[2020-05-01] MEDS: Memantine 10mg tab ORAL SCH (10:03)
[2020-05-01] MEDS: Aspirin Baby 81mg ORAL SCH (10:03)
[2020-05-01] MEDS: Heparin 5000 units/ml inj SUBQ SCH ×2 (10:04→21:00)
[2020-05-01] MEDS: Losartan 50mg tab ORAL SCH (10:17)
[2020-05-01 10:42] LABS: INR 0.9 (0.9-1.1)
--- NOTE | 2020-05-01 11:52 | Cardiac Electrophysiology PN ---
Assessment/Plan Assessment/Plan 1. Sick sinus syndrome with multiple very long pauses of up to more than 7 seconds not due to a correctable cause. Ruled out for [place]. Not hypothyroid. Transferred to ICU on transcutaneous pacing patches. Discontinued Bystolic and p.r.n. clonidine more than 3 days ago. Echocardiogram showed Nl EF.She will need a permanent pacemaker placement. 2. Hypertension. On losartan 50 mg daily and amlodipine 10 mg daily. 3. UTI, on ceftriaxone. 4. Weakness and failure to thrive. CORNELIUS RN and grand daughter Jennifer at [phone] She agreed with the pacer Awaiting consent to get her scheduled Subjective Subjective Continues with episodes of bradycardia and junctional rhythm while awake. HR as low as 32 on 12 lead ECG and was transferred to ICU as continued with multiple long pauses of more than 3 seconds including pause of more than 7 seconds! Transcutaneous patches are on. Objective Last 24 Hour Vital Signs Date Time Temp Pulse Resp B/P (MAP) Pulse Ox O2 Delivery O2 Flow Rate FiO2 05/01/20 11:00 72 18 132/62 (85) 98 05/01/20 10:30 70 20 132/62 (85) 97 05/01/20 10:24 71 17 145/64 (91) 98 05/01/20 10:17 149/68 05/01/20 10:03 76 149/68 05/01/20 10:00 71 17 149/64 (92) 98 05/01/20 09:30 69 20 147/52 (83) 99 05/01/20 09:08 69 19 143/57 (85) 05/01/20 09:00 74 24 05/01/20 08:22 149/68 (95) 05/01/20 08:16 Room Air 05/01/20 08:00 76 05/01/20 07:17 97.2 72 18 174/67 (102) 97 05/01/20 04:00 97.7 65 18 115/55 (75) 97 05/01/20 04:00 71 05/01/20 00:00 98.6 70 18 129/54 (79) 98 05/01/20 00:00 72 04/30/20 21:00 Room Air 04/30/20 20:00 71 04/30/20 20:00 97.7 75 18 135/60 (85) 98 04/30/20 16:00 47 04/30/20 16:00 97.7 18 120/76 (91) 97 04/30/20 12:00 43 04/30/20 12:00 97.6 44 20 111/48 (69) 99 Intake and Output 04/30/20 05/01/20 19:00 07:00 Intake Total 600 ml 400 ml Balance 600 ml 400 ml Intake Oral 600 ml 400 ml # Voids 3 3 Laboratory Tests Test 05/01/20 05:40 05/01/20 09:45 White Blood Count 5.3 K/UL (4.8-10.8) Red Blood Count 3.59 M/UL (4.20-5.40) L Hemoglobin 11.7 G/DL (12.0-16.0) L Hematocrit 34.0 % (37.0-47.0) L Mean Corpuscular Volume 95 FL (80-99) Mean Corpuscular Hemoglobin 32.6 PG (27.0-31.0) H Mean Corpuscular Hemoglobin Concent 34.4 G/DL (32.0-36.0) Red Cell Distribution Width 12.4 % (11.6-14.8) Platelet Count 157 K/UL (150-450) Mean Platelet Volume 6.2 FL (6.5-10.1) L Neutrophils (%) (Auto) 44.5 % (45.0-75.0) L Lymphocytes (%) (Auto) 43.0 % (20.0-45.0) Monocytes (%) (Auto) 7.9 % (1.0-10.0) Eosinophils (%) (Auto) 3.7 % (0.0-3.0) H Basophils (%) (Auto) 1.0 % (0.0-2.0) Sodium Level 140 MMOL/L (136-145) Potassium Level 4.3 MMOL/L (3.5-5.1) Chloride Level 109 MMOL/L (98-107) H Carbon Dioxide Level 20 MMOL/L (21-32) L Anion Gap 11 mmol/L (5-15) Blood Urea Nitrogen 13 mg/dL (7-18) Creatinine 0.7 MG/DL (0.55-1.30) Estimat Glomerular Filtration Rate > 60 mL/min (>60) Glucose Level 103 MG/DL (74-106) Calcium Level 9.3 MG/DL (8.5-10.1) Troponin I 0.008 ng/mL (0.000-0.056) Carcinoembryonic Antigen Pending Prothrombin Time 10.3 SEC (9.30-11.50) Prothromb Time International Ratio 0.9 (0.9-1.1) Activated Partial Thromboplast Time 25 SEC (23-33) Microbiology Date/Time Source Procedure Growth Status 04/28/20 19:00 Blood Blood Culture - Preliminary NO GROWTH AFTER 48 HOURS Resulted 04/28/20 18:45 Blood Blood Culture - Preliminary NO GROWTH AFTER 48 HOURS Resulted Objective HEAD AND NECK: No JVD. LUNGS: Clear. CARDIOVASCULAR: Regular S1 and S2 with no gallop or murmur. ABDOMEN: Soft. EXTREMITIES: No pitting edema. Anish Nelson MD May 01, 2020 11:52
--- NOTE | 2020-05-01 14:07 | General Progress Note ---
Subjective ROS Limited/Unobtainable: No Allergies: Coded Allergies: No Known Allergies (Unverified , 04/26/20) Objective Last 24 Hour Vital Signs Date Time Temp Pulse Resp B/P (MAP) Pulse Ox O2 Delivery O2 Flow Rate FiO2 05/01/20 12:10 88 05/01/20 12:00 98.1 84 19 136/118 (124) 97 05/01/20 12:00 Room Air 05/01/20 11:00 72 18 132/62 (85) 98 05/01/20 10:30 70 20 132/62 (85) 97 05/01/20 10:24 71 17 145/64 (91) 98 05/01/20 10:17 149/68 05/01/20 10:03 76 149/68 05/01/20 10:00 71 17 149/64 (92) 98 05/01/20 09:30 69 20 147/52 (83) 99 05/01/20 09:08 69 19 143/57 (85) 05/01/20 09:00 74 24 05/01/20 08:22 149/68 (95) 05/01/20 08:16 Room Air 05/01/20 08:00 76 05/01/20 07:17 97.2 72 18 174/67 (102) 97 05/01/20 04:00 97.7 65 18 115/55 (75) 97 05/01/20 04:00 71 05/01/20 00:00 98.6 70 18 129/54 (79) 98 05/01/20 00:00 72 04/30/20 21:00 Room Air 04/30/20 20:00 71 04/30/20 20:00 97.7 75 18 135/60 (85) 98 04/30/20 16:00 47 04/30/20 16:00 97.7 18 120/76 (91) 97 Intake and Output 04/30/20 05/01/20 19:00 07:00 Intake Total 600 ml 400 ml Balance 600 ml 400 ml Intake Oral 600 ml 400 ml # Voids 3 3 Laboratory Tests 05/01/20 05:40: White Blood Count 5.3, Red Blood Count 3.59L, Hemoglobin 11.7L, Hematocrit 34.0L , Mean Corpuscular Volume 95, Mean Corpuscular Hemoglobin 32.6H, Mean Corpuscular Hemoglobin Concent 34.4, Red Cell Distribution Width 12.4, Platelet Count 157, Mean Platelet Volume 6.2L, Neutrophils (%) (Auto) 44.5L, Lymphocytes (%) (Auto) 43.0, Monocytes (%) (Auto) 7.9, Eosinophils (%) (Auto) 3.7H, Basophils (%) (Auto) 1.0, Sodium Level 140, Potassium Level 4.3, Chloride Level 109H, Carbon Dioxide Level 20L, Anion Gap 11, Blood Urea Nitrogen 13, Creatinine 0.7, Estimat Glomerular Filtration Rate > 60, Glucose Level 103, Calcium Level 9.3, Troponin I 0.008, Carcinoembryonic Antigen [Pending] 05/01/20 09:45: Prothrombin Time 10.3, Prothromb Time International Ratio 0.9, Activated Partial Thromboplast Time 25 Height (Feet): 5 Height (Inches): 2.00 Weight (Pounds): 115 General Appearance: no apparent distress EENT: normal ENT inspection Neck: supple Cardiovascular: normal rate Respiratory/Chest: decreased breath sounds Abdomen: normal bowel sounds, non tender, soft Extremities: non-tender Assessment/Plan Problem List: (1) Failure to thrive SNOMED: 10007592 Qualifiers: Qualified Codes: R62.7 - Adult failure to thrive (2) UTI (urinary tract infection) ICD Codes: N39.0 - Urinary tract infection, site not specified SNOMED: 00224300 Qualifiers: Qualified Codes: N39.0 - Urinary tract infection, site not specified (3) Dehydration ICD Codes: E86.0 - Dehydration SNOMED: 39723459 Status: stable, progressing Assessment/Plan: passed swallow eval fu calorie count abx fu cardiology recs transferred to ICU for cardiac pause will Bjorn Boogie MD May 01, 2020 14:07
--- NOTE | 2020-05-01 14:51 | Cardiology Report ---
APPROVED REPORT EKG Measurement Heart [id number] 170P45 [id number] <Conclusion> Normal sinus rhythm Nonspecific T wave abnormality Abnormal ECG
--- NOTE | 2020-05-01 15:59 | Diagnostic Imaging Report ---
Indication: Lower extremity pain Technique: Grayscale and duplex images of the bilateral lower extremity veins Comparison: None Findings: Bilaterally, grayscale and duplex images demonstrate no evidence of intraluminal thrombus. Normal phasic Doppler waveforms, demonstrating normal augmentation response and no evidence of valvular insufficiency. Greater saphenous vein(s) and tibial veins are patent. Normal compressibility. Impression: Negative for evidence of lower extremity deep venous thrombosis bilaterally
[2020-05-01] MEDS: TraZODone 50mg tab ORAL SCH (21:00)
[2020-05-02] VITALS (20 sets, daily range): BP systolic 100–153; BP diastolic 42–71
[2020-05-02 05:16] LABS: BASOPHILS % (AUTO) 1.1 % (0.0-2.0); EOSINOPHILS % (AUTO) 3.6 % (0.0-3.0); HEMATOCRIT 35.1 % (37.0-47.0); HEMOGLOBIN 11.9 G/DL (12.0-16.0); LYMPHOCYTES % (AUTO) 36.6 % (20.0-45.0); MEAN CORPUSCULAR VOLUME 95 FL (80-99); MONOCYTES % (AUTO) 7.5 % (1.0-10.0); NEUTROPHILS % (AUTO) 51.2 % (45.0-75.0); PLATELET COUNT 166 K/UL (150-450); RED BLOOD COUNT 3.67 M/UL (4.20-5.40); RED CELL DISTRIBUTION WIDTH 12.6 % (11.6-14.8); WHITE BLOOD COUNT 5.2 K/UL (4.8-10.8)
[2020-05-02 05:33] LABS: ANION GAP 9 mmol/L (5-15); BLOOD UREA NITROGEN 8 mg/dL (7-18); CALCIUM 9.4 MG/DL (8.5-10.1); CARBON DIOXIDE 21 MMOL/L (21-32); CHLORIDE 108 MMOL/L (98-107); CREATININE 0.7 MG/DL (0.55-1.30); POTASSIUM 4.5 MMOL/L (3.5-5.1); SODIUM 138 MMOL/L (136-145)
[2020-05-02] MEDS: Creon DR 36,000 units cap ORAL SCH ×3 (06:30→17:09)
[2020-05-02] MEDS: Heparin 5000 units/ml inj SUBQ SCH ×2 (07:45→19:51)
--- NOTE | 2020-05-02 07:56 | Infectious Diseases Prog Note ---
Assessment/Plan Assessment: COVID19 neg x1 (04/26 rapid COVID PCR neg) -04/26 CXR: Mild accentuation of interstitial markings. No consolidation. Pyuria/bacteriuria- UTI c/w bacteremia -u/a wbc 10-25, nit neg, leuk +3; ucx <10k E.coli, 10-20k dpheroids Bacteremia- Likely a contaminant -04/26 Bcx 1/ SPHINGOMONAS PAUCIMOBILIS , GNR; 04/28 Bx Neg to date Afebrile No leukocytosis FTT Generalized weakness -CT head: No acute intracranial abnormality. Global parenchymal atrophy and chronic microvascular ischemic changes. HTN Plan: - Monitor off abx - 05/01/20 SP c Ceftriaxone #6 - 04/30/20 SP IV vancomycin #5 pending Bcx -f/u cx -Monitor CBC/CMP, temperatures D/w RN Thank you for consulting [facility]. Will continue to follow along with you. Subjective Allergies: Coded Allergies: No Known Allergies (Unverified , 04/26/20) AF On RA WBC 5 NAD Objective Last 24 Hour Vital Signs Date Time Temp Pulse Resp B/P (MAP) Pulse Ox O2 Delivery O2 Flow Rate FiO2 05/02/20 07:00 66 18 100/42 (61) 95 05/02/20 06:00 63 18 123/60 (81) 99 05/02/20 05:00 66 26 143/62 (89) 98 05/02/20 04:00 97.8 76 18 142/55 (84) 99 05/02/20 04:00 Room Air 05/02/20 03:02 70 05/02/20 03:00 71 19 147/61 (89) 97 05/02/20 02:00 69 19 138/51 (80) 97 05/02/20 01:00 69 18 123/51 (75) 96 05/02/20 00:00 Room Air 05/02/20 00:00 98.1 69 19 118/50 (72) 95 05/01/20 23:10 70 05/01/20 23:00 83 15 136/49 (78) 96 05/01/20 22:00 74 23 138/55 (82) 97 05/01/20 21:00 77 19 120/53 (75) 98 05/01/20 20:00 98.1 75 22 136/60 (85) 97 05/01/20 20:00 Room Air 05/01/20 19:20 85 05/01/20 19:00 79 20 119/66 (83) 97 05/01/20 18:00 83 22 118/78 (91) 97 05/01/20 17:00 98 25 135/98 (110) 97 05/01/20 16:26 82 05/01/20 16:00 Room Air 05/01/20 16:00 98.2 80 22 132/56 (81) 97 05/01/20 15:00 79 22 137/58 (84) 97 05/01/20 14:00 77 20 140/62 (88) 97 05/01/20 13:00 75 22 122/63 (82) 97 05/01/20 12:10 88 05/01/20 12:00 98.1 84 19 136/118 (124) 97 05/01/20 12:00 Room Air 05/01/20 11:00 72 18 132/62 (85) 98 05/01/20 10:30 70 20 132/62 (85) 97 05/01/20 10:24 71 17 145/64 (91) 98 05/01/20 10:17 149/68 05/01/20 10:03 76 149/68 05/01/20 10:00 71 17 149/64 (92) 98 05/01/20 09:30 69 20 147/52 (83) 99 05/01/20 09:08 69 19 143/57 (85) 05/01/20 09:00 74 24 05/01/20 08:22 149/68 (95) 05/01/20 08:16 Room Air 05/01/20 08:00 76 Height (Feet): 5 Height (Inches): 2.00 Weight (Pounds): 115 Gen: NAD in bed HEENT: NCAT, EOMI, PERRL Pulm: BL chest rise Abd: Soft, NTND Ext: No c/c/e Neuro: Awake Laboratory Tests Test 05/01/20 09:45 05/02/20 04:26 Prothrombin Time 10.3 SEC (9.30-11.50) Prothromb Time International Ratio 0.9 (0.9-1.1) Activated Partial Thromboplast Time 25 SEC (23-33) White Blood Count 5.2 K/UL (4.8-10.8) Red Blood Count 3.67 M/UL (4.20-5.40) L Hemoglobin 11.9 G/DL (12.0-16.0) L Hematocrit 35.1 % (37.0-47.0) L Mean Corpuscular Volume 95 FL (80-99) Mean Corpuscular Hemoglobin 32.5 PG (27.0-31.0) H Mean Corpuscular Hemoglobin Concent 34.1 G/DL (32.0-36.0) Red Cell Distribution Width 12.6 % (11.6-14.8) Platelet Count 166 K/UL (150-450) Mean Platelet Volume 6.0 FL (6.5-10.1) L Neutrophils (%) (Auto) 51.2 % (45.0-75.0) Lymphocytes (%) (Auto) 36.6 % (20.0-45.0) Monocytes (%) (Auto) 7.5 % (1.0-10.0) Eosinophils (%) (Auto) 3.6 % (0.0-3.0) H Basophils (%) (Auto) 1.1 % (0.0-2.0) Sodium Level 138 MMOL/L (136-145) Potassium Level 4.5 MMOL/L (3.5-5.1) Chloride Level 108 MMOL/L (98-107) H Carbon Dioxide Level 21 MMOL/L (21-32) Anion Gap 9 mmol/L (5-15) Blood Urea Nitrogen 8 mg/dL (7-18) Creatinine 0.7 MG/DL (0.55-1.30) Estimat Glomerular Filtration Rate > 60 mL/min (>60) Glucose Level 113 MG/DL (74-106) H Calcium Level 9.4 MG/DL (8.5-10.1) Current Medications Medications (Trade) Dose Ordered Sig/Carl Route PRN Reason Start Time Stop Time Status Last Admin Dose Admin Acetaminophen (Tylenol) 325 mg Q4H PRN ORAL Temp >100.5 04/27/20 11:45 05/27/20 11:44 Acetaminophen (Tylenol) 650 mg Q4H PRN ORAL Mild Pain (Pain Scale 1-3) 04/26/20 18:30 05/26/20 18:29 04/27/20 01:30 Alendronate Sodium (Fosamax) 70 mg ONCE A WEEK ORAL 04/28/20 06:30 05/28/20 06:29 04/28/20 06:16 Amitriptyline HCl (Elavil) 10 mg BEDTIME ORAL 04/27/20 21:00 05/27/20 20:59 04/30/20 20:27 Amlodipine Besylate (Norvasc) 10 mg DAILY ORAL 04/28/20 09:00 05/28/20 08:59 05/01/20 10:03 Amylase/Lipase/ Protease (Jarret JC 36,000 units cap) 1 ea BEFORE MEALS ORAL 04/27/20 16:30 07/26/20 16:29 05/01/20 17:41 Aspirin (ASA) 81 mg DAILY ORAL 04/28/20 09:00 06/12/20 08:59 05/01/20 10:03 Baclofen (Lioresal) 10 mg DAILYPRN PRN ORAL Muscle Spasm 04/27/20 12:15 05/27/20 12:14 Bethanechol Chloride (Urecholine) 25 mg THREE TIMES A DAY ORAL 04/27/20 13:00 05/27/20 12:59 05/01/20 17:41 Dextrose/ Electrolytes 1,000 ml @ 50 mls/hr Q20H IV 04/27/20 18:00 05/27/20 17:59 05/01/20 18:49 Heparin Sodium (Porcine) (Heparin 5000 units/ml) 5,000 units EVERY 12 HOURS SUBQ 04/26/20 21:00 06/10/20 20:59 05/01/20 10:04 Linaclotide (Linzess) 290 mcg DAILY ORAL 04/27/20 14:00 07/26/20 13:59 05/01/20 10:03 Lorazepam (Ativan) 0.5 mg Q8H PRN ORAL For Anxiety 04/27/20 11:45 05/04/20 11:44 Losartan Potassium (Cozaar) 50 mg DAILY ORAL 04/28/20 09:00 05/28/20 08:59 05/01/20 10:17 Megestrol Acetate (Megace) 40 mg BID ORAL 04/27/20 18:00 05/03/20 08:59 05/01/20 17:41 Memantine (Namenda) 10 mg DAILY ORAL 04/28/20 09:00 05/28/20 08:59 05/01/20 10:03 Pantoprazole (Protonix) 40 mg EVERY 12 HOURS ORAL 04/27/20 21:00 05/27/20 20:59 05/01/20 21:01 Trazodone HCl (Desyrel) 50 mg BEDTIME ORAL 04/27/20 21:00 05/27/20 20:59 04/30/20 20:27 Aruna Sims M.D. May 02, 2020 07:56
--- NOTE | 2020-05-02 07:57 | General Progress Note ---
Subjective Constitutional: Reports: weakness Allergies: Coded Allergies: No Known Allergies (Unverified , 04/26/20) All Systems: reviewed and negative except above Subjective calm in bed in icu Objective Last 24 Hour Vital Signs Date Time Temp Pulse Resp B/P (MAP) Pulse Ox O2 Delivery O2 Flow Rate FiO2 05/02/20 07:00 66 18 100/42 (61) 95 05/02/20 06:00 63 18 123/60 (81) 99 05/02/20 05:00 66 26 143/62 (89) 98 05/02/20 04:00 97.8 76 18 142/55 (84) 99 05/02/20 04:00 Room Air 05/02/20 03:02 70 05/02/20 03:00 71 19 147/61 (89) 97 05/02/20 02:00 69 19 138/51 (80) 97 05/02/20 01:00 69 18 123/51 (75) 96 05/02/20 00:00 Room Air 05/02/20 00:00 98.1 69 19 118/50 (72) 95 05/01/20 23:10 70 05/01/20 23:00 83 15 136/49 (78) 96 05/01/20 22:00 74 23 138/55 (82) 97 05/01/20 21:00 77 19 120/53 (75) 98 05/01/20 20:00 98.1 75 22 136/60 (85) 97 05/01/20 20:00 Room Air 05/01/20 19:20 85 05/01/20 19:00 79 20 119/66 (83) 97 05/01/20 18:00 83 22 118/78 (91) 97 05/01/20 17:00 98 25 135/98 (110) 97 05/01/20 16:26 82 05/01/20 16:00 Room Air 05/01/20 16:00 98.2 80 22 132/56 (81) 97 05/01/20 15:00 79 22 137/58 (84) 97 05/01/20 14:00 77 20 140/62 (88) 97 05/01/20 13:00 75 22 122/63 (82) 97 05/01/20 12:10 88 05/01/20 12:00 98.1 84 19 136/118 (124) 97 05/01/20 12:00 Room Air 05/01/20 11:00 72 18 132/62 (85) 98 05/01/20 10:30 70 20 132/62 (85) 97 05/01/20 10:24 71 17 145/64 (91) 98 05/01/20 10:17 149/68 05/01/20 10:03 76 149/68 05/01/20 10:00 71 17 149/64 (92) 98 05/01/20 09:30 69 20 147/52 (83) 99 05/01/20 09:08 69 19 143/57 (85) 05/01/20 09:00 74 24 05/01/20 08:22 149/68 (95) 05/01/20 08:16 Room Air 05/01/20 08:00 76 Intake and Output 05/01/20 05/02/20 19:00 07:00 Intake Total 659.17 ml 100 ml Balance 659.17 ml 100 ml Intake Oral 150 ml 100 ml IV Total 509.17 ml # Voids 3 3 # Bowel Movements 3 Laboratory Tests 05/01/20 09:45: Prothrombin Time 10.3, Prothromb Time International Ratio 0.9, Activated Partial Thromboplast Time 05/02/20 04:26: White Blood Count 5.2, Red Blood Count 3.67L, Hemoglobin 11.9L, Hematocrit 35.1L , Mean Corpuscular Volume 95, Mean Corpuscular Hemoglobin 32.5H, Mean Cor puscular Hemoglobin Concent 34.1, Red Cell Distribution Width 12.6, Platelet Count 166, Mean Platelet Volume 6.0L, Neutrophils (%) (Auto) 51.2, Lymphocytes (%) (Auto) 36.6, Monocytes (%) (Auto) 7.5, Eosinophils (%) (Auto) 3.6H, Basophils (%) (Auto) 1.1, Sodium Level 138, Potassium Level 4.5, Chloride Level 108H, Carbon Dioxide Level 21, Anion Gap 9, Blood Urea Nitrogen 8, Creatinine 0.7, Estimat Glomerular Filtration Rate > 60, Glucose Level 113H, Calcium Level 9.4 Height (Feet): 5 Height (Inches): 2.00 Weight (Pounds): 115 General Appearance: lethargic EENT: normal ENT inspection Neck: normal alignment Cardiovascular: normal peripheral pulses, normal rate, regular rhythm Respiratory/Chest: chest wall non-tender, lungs clear, normal breath sounds Abdomen: normal bowel sounds, non tender, soft Extremities: normal inspection Edema: no edema noted Arm (L), no edema noted Arm (R), no edema noted Leg (L), no edema noted Leg (R), no edema noted Pedal (L), no edema noted Pedal (R), no edema noted Generalized Neurologic: motor weakness Skin: normal pigmentation, warm/dry Assessment/Plan Problem List: (1) HTN (hypertension) ICD Codes: I10 - Essential (primary) hypertension SNOMED: 44019309 (2) Diabetes ICD Codes: E11.9 - Type 2 diabetes mellitus without complications SNOMED: 90422003 (3) Junctional rhythm ICD Codes: I49.8 - Other specified cardiac arrhythmias SNOMED: 33770307 (4) Dehydration ICD Codes: E86.0 - Dehydration SNOMED: 30262275 (5) Failure to thrive SNOMED: 64651603 Qualifiers: Qualified Codes: R62.7 - Adult failure to thrive (6) UTI (urinary tract infection) ICD Codes: N39.0 - Urinary tract infection, site not specified SNOMED: 52971525 Qualifiers: Qualified Codes: N39.0 - Urinary tract infection, site not specified Status: stable, progressing Assessment/Plan: pt diet abx cardio eval cbc bmp am dc w hh when clear by cardio Dakota Calvin DO May 02, 2020 07:57
[2020-05-02] MEDS: Bethanechol 25mg Tab ORAL SCH ×3 (08:03→17:09)
[2020-05-02] MEDS: Aspirin Baby 81mg ORAL SCH (08:04)
[2020-05-02] MEDS: Losartan 50mg tab ORAL SCH (08:04)
[2020-05-02] MEDS: Memantine 10mg tab ORAL SCH (08:05)
[2020-05-02 09:09] LABS: ALANINE AMINOTRANSFERASE 36 U/L (12-78); ALBUMIN 3.7 G/DL (3.4-5.0); ALKALINE PHOSPHATASE 52 U/L (46-116); ASPARTATE AMINO TRANSFERASE 32 U/L (15-37); BILIRUBIN,DIRECT 0.2 MG/DL (0.0-0.3); BILIRUBIN,TOTAL 0.8 MG/DL (0.2-1.0); PHOSPHORUS 5.1 MG/DL (2.5-4.9)
--- NOTE | 2020-05-02 09:26 | Nephrology Progress Note ---
Assessment/Plan Problem List: (1) Electrolyte imbalance (2) Dehydration (3) Failure to thrive (4) UTI (urinary tract infection) Assessment Dehydration, hypokalemia UTI Failure to thrive History of diabetes mellitus History of hypertension Plan May 02: Labs reviewed. Renal parameters stable. Patient is currently in ICU due to arrhythmia and pauses on rhythm strip that was detected yesterday. 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 Stable from renal standpoint of view. April 30: Status quo. Stable from renal standpoint of view. April 29: Renal parameters stable. Blood pressure stable. Medication list reviewed. Deviously: Slow hydration Adjust blood pressure medication with proper parameters Potassium supplement Monitor electrolytes Per consultants Subjective ROS Limited/Unobtainable: No Objective Objective Last 24 Hour Vital Signs Date Time Temp Pulse Resp B/P (MAP) Pulse Ox O2 Delivery O2 Flow Rate FiO2 05/02/20 08:04 139/71 05/02/20 08:04 77 139/71 05/02/20 08:00 98.1 72 20 139/71 (93) 97 05/02/20 08:00 Room Air 05/02/20 07:00 66 18 100/42 (61) 95 05/02/20 06:00 63 18 123/60 (81) 99 05/02/20 05:00 66 26 143/62 (89) 98 05/02/20 04:00 97.8 76 18 142/55 (84) 99 05/02/20 04:00 Room Air 05/02/20 03:02 70 05/02/20 03:00 71 19 147/61 (89) 97 05/02/20 02:00 69 19 138/51 (80) 97 05/02/20 01:00 69 18 123/51 (75) 96 05/02/20 00:00 Room Air 05/02/20 00:00 98.1 69 19 118/50 (72) 95 05/01/20 23:10 70 05/01/20 23:00 83 15 136/49 (78) 96 05/01/20 22:00 74 23 138/55 (82) 97 05/01/20 21:00 77 19 120/53 (75) 98 05/01/20 20:00 98.1 75 22 136/60 (85) 97 05/01/20 20:00 Room Air 05/01/20 19:20 85 05/01/20 19:00 79 20 119/66 (83) 97 05/01/20 18:00 83 22 118/78 (91) 97 05/01/20 17:00 98 25 135/98 (110) 97 05/01/20 16:26 82 05/01/20 16:00 Room Air 05/01/20 16:00 98.2 80 22 132/56 (81) 97 05/01/20 15:00 79 22 137/58 (84) 97 05/01/20 14:00 77 20 140/62 (88) 97 05/01/20 13:00 75 22 122/63 (82) 97 05/01/20 12:10 88 05/01/20 12:00 98.1 84 19 136/118 (124) 97 05/01/20 12:00 Room Air 05/01/20 11:00 72 18 132/62 (85) 98 05/01/20 10:30 70 20 132/62 (85) 97 05/01/20 10:24 71 17 145/64 (91) 98 05/01/20 10:17 149/68 05/01/20 10:03 76 149/68 05/01/20 10:00 71 17 149/64 (92) 98 05/01/20 09:30 69 20 147/52 (83) 99 Intake and Output 05/01/20 05/02/20 19:00 07:00 Intake Total 659.17 ml 100 ml Balance 659.17 ml 100 ml Intake Oral 150 ml 100 ml IV Total 509.17 ml # Voids 3 3 # Bowel Movements 3 Laboratory Tests 05/01/20 09:45: Prothrombin Time 10.3, Prothromb Time International Ratio 0.9, Activated Partial Thromboplast Time 05/02/20 04:26: White Blood Count 5.2, Red Blood Count 3.67L, Hemoglobin 11.9L, Hematocrit 35.1L , Mean Corpuscular Volume 95, Mean Corpuscular Hemoglobin 32.5H, Mean Corpuscular Hemoglobin Concent 34.1, Red Cell Distribution Width 12.6, Platelet Count 166, Mean Platelet Volume 6.0L, Neutrophils (%) (Auto) 51.2, Lymphocytes (%) (Auto) 36.6, Monocytes (%) (Auto) 7.5, Eosinophils (%) (Auto) 3.6H, Basophils (%) (Auto) 1.1, Sodium Level 138, Potassium Level 4.5, Chloride Level 108H, Carbon Dioxide Level 21, Anion Gap 9, Blood Urea Nitrogen 8, Creatinine 0.7, Estimat Glomerular Filtration Rate > 60, Glucose Level 113H, Calcium Level 9.4, Phosphorus Level 5.1H, Magnesium Level 2.1, Total Bilirubin 0.8, Direct Bilirubin 0.2, Aspartate Amino Transf (AST/SGOT) 32, Alanine Aminotransferase (ALT/SGPT) 36, Alkaline Phosphatase 52, Total Protein 6.6, Albumin 3.7 Height (Feet): 5 Height (Inches): 2.00 Weight (Pounds): 115 General Appearance: no apparent distress Cardiovascular: normal rate Objective No change Maximilian Guillen MD May 02, 2020 09:26
--- NOTE | 2020-05-02 12:51 | Initial Psychiatric Evaluation ---
Psychiatry Consultation Psychiatry Consultation Chief Complaint: Generalized Weakness History of Present Illness: 85-year-old female she has altered her status confusion she has a history of urinary tract infection and altered mental status dehydration for that reason she has a significant decline in cognition below her baseline this point her attending is requested daily psychiatric consultation patient was seen and assessed at that time was still very confused and disorganized Mental status examination: 85-year-old female her appearance is disheveled creatinine 0.30 her affect is guarded and restricted intellect is poor she has no prior events does not last for presents mood depressed anxious moderate suicidal medication works again due to sepsis from a backwards orientation x2 she is oriented to person place and ti me situation speech confused nonsensical thought processes organized logical thought content alternatives Delusions Insight poor Allergies: Coded Allergies: No Known Allergies (Unverified , 04/26/20) Medication History Scheduled Acyclovir* (Acyclovir*), 400 MG ORAL FOUR TIMES A DAY, (Reported) Alendronate Sodium* (Fosamax*), 70 MG ORAL ONCE A WEEK, (Reported) Amitriptyline HCl (Elavil*), 10 MG ORAL BEDTIME, (Reported) Amlodipine Besylate* (Amlodipine Besylate*), 10 MG ORAL DAILY, (Reported) Aspirin* (Aspirin*), 81 MG ORAL DAILY, (Reported) Baclofen* (Baclofen*), 10 MG ORAL PRN, (Reported) Bethanechol Chl (Bethanechol Chloride), 25 MG ORAL THREE TIMES A DAY, (Reported) Calcium Carb/Mag Hydrox/Simeth (Mylanta Tonight 800-270-80/10), 355 ML PO PRN, (Reported) Cholecalciferol (Vitamin D3) (Vitamin D3), 2 TAB PO DAILY, (Reported) Cholecalciferol (Vitamin D3) (Vitamin D3), 50 MCG PO DAILY, (Reported) Esomeprazole Magnesium (Esomeprazole Magnesium), 40 MG PO DAILY, (Reported) Febuxostat (Uloric), 40 MG ORAL DAILY, (Reported) Icosapent Ethyl (Vascepa), 1 GM PO BID, (Reported) Levocetirizine Dihydrochloride (Levocetirizine Dihydrochloride), 5 MG ORAL DAILY, (Reported) Linaclotide (Linzess), 290 MCG PO HS, (Reported) Lipase/Protease/Amylase (Creon Dr 36,000 Units Capsule), 1 EACH PO EVERY 8 HOURS, (Reported) Lorazepam (Lorazepam Intensol), 0.5 MG ORAL Q4HR, (Reported) Losartan Potassium* (Losartan Potassium*), 50 MG ORAL DAILY, (Reported) Magnesium Oxide (Magnesium Oxide), 400 MG PO BEDTIME, (Reported) Meclizine Hcl* (Meclizine*), 12.5 MG ORAL THREE TIMES A DAY, (Reported) Megestrol Acetate (Megestrol Acetate), 40 MG PO DAILY, (Reported) Memantine Hcl* (Namenda*), 10 MG ORAL DAILY, (Reported) Nebivolol Hcl* (Bystolic*), 5 MG ORAL DAILY, (Reported) Olopatadine HCl (Pazeo), 2.5 ML OP DAILY, (Reported) Ondansetron* (Zofran*), 4 MG ORAL DAILY, (Reported) Prazosin Hcl* (Minipress*), 1 MG PO BEDTIME, (Reported) Rosuvastatin Calcium* (Crestor*), 20 MG ORAL HS, (Reported) Suvorexant (Belsomra), 15 MG PO HS, (Reported) Trazodone Hcl* (Desyrel*), 50 MG ORAL BEDTIME, (Reported) Triamterene/Hydrochlorothiazide* (Dyazide 37.5-25 Mg Tab*), 1 TAB ORAL DAILY, (Reported) Scheduled PRN Acetaminophen* (Acetaminophen 325MG Tablet*), 325 MG ORAL Q4H PRN for Temp >100.5, (Reported) Clonidine Hcl* (Catapres*), 0.1 MG ORAL Q12HR PRN for For High Blood Pressure, (Reported) Lorazepam* (Ativan*), 0.5 MG ORAL Q8HR PRN for For Anxiety, (Reported) Miscellaneous Medications Memantine HCl/Donepezil HCl (Namzaric 14 mg-10 mg Capsule), 1 EACH PO, (Reported) Discontinued Medications Trazodone Hcl (Trazodone Hcl), Unknown Dose ORAL BEDTIME, (Reported) Discontinued Reason: Prescription changed Objective Data Height (Feet): 5 Height (Inches): 2.00 Weight (Pounds): 115 Assessment/Plan Assessment/Plan: Treat this patient with a medication regimen of Namenda 10 mg daily trazodone 50 mg nightly cognitive behavioral therapy, identifies on the negative thoughts (negative thoughts to more positive thoughts to reduce depression anxiety mood lability Diagnosis [place] I: 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
[2020-05-02] MEDS: D5 1/2NS w/KCl 40meq 1000ml 1,000 ML IV SCH (14:21)
--- NOTE | 2020-05-02 16:13 | Cardiac Electrophysiology PN ---
Assessment/Plan Assessment/Plan 1. Sick sinus syndrome with multiple very long pauses of up to more than 7 seconds not due to a correctable cause. Ruled out for MS. Not hypothyroid. Transferred to ICU on transcutaneous pacing patches. Off Bystolic and p.r.n. clonidine more than 4 days ago. Echocardiogram showed Nl EF. Schedule for permanent pacemaker placement in am. 2. Hypertension. On Losartan 50 mg daily and amlodipine 10 mg daily. 3. UTI, on ceftriaxone. 4. Weakness and failure to thrive. CORNELIUS RN and grand daughter Jennifer at [phone] She agreed with the pacer Consent obtained. NPO after MN for PPM implant Monday at 2 pm Subjective Subjective HR as low as 32 on 12 lead ECG and was transferred to ICU as continued with multiple long pauses of more than 3 seconds including pause of more than 7 seconds! Transcutaneous patches are on. Will schedule PPM implant in am. Objective Last 24 Hour Vital Signs Date Time Temp Pulse Resp B/P (MAP) Pulse Ox O2 Delivery O2 Flow Rate FiO2 05/02/20 15:00 80 20 136/54 (81) 98 05/02/20 14:00 80 18 133/58 (83) 98 05/02/20 13:00 81 19 136/57 (83) 98 05/02/20 12:00 Room Air 05/02/20 12:00 97.8 73 17 120/47 (71) 97 05/02/20 11:00 80 21 137/62 (87) 98 05/02/20 10:00 84 21 148/64 (92) 96 05/02/20 09:00 78 20 153/65 (94) 95 05/02/20 08:04 139/71 05/02/20 08:04 77 139/71 05/02/20 08:00 98.1 72 20 139/71 (93) 97 05/02/20 08:00 Room Air 05/02/20 08:00 77 05/02/20 07:00 66 18 100/42 (61) 95 05/02/20 06:00 63 18 123/60 (81) 99 05/02/20 05:00 66 26 143/62 (89) 98 05/02/20 04:00 97.8 76 18 142/55 (84) 99 05/02/20 04:00 Room Air 05/02/20 03:02 70 05/02/20 03:00 71 19 147/61 (89) 97 05/02/20 02:00 69 19 138/51 (80) 97 05/02/20 01:00 69 18 123/51 (75) 96 05/02/20 00:00 Room Air 05/02/20 00:00 98.1 69 19 118/50 (72) 95 05/01/20 23:10 70 05/01/20 23:00 83 15 136/49 (78) 96 05/01/20 22:00 74 23 138/55 (82) 97 05/01/20 21:00 77 19 120/53 (75) 98 05/01/20 20:00 98.1 75 22 136/60 (85) 97 05/01/20 20:00 Room Air 05/01/20 19:20 85 05/01/20 19:00 79 20 119/66 (83) 97 05/01/20 18:00 83 22 118/78 (91) 97 05/01/20 17:00 98 25 135/98 (110) 97 05/01/20 16:26 82 Intake and Output 05/01/20 05/02/20 19:00 07:00 Intake Total 659.17 ml 100 ml Balance 659.17 ml 100 ml Intake Oral 150 ml 100 ml IV Total 509.17 ml # Voids 3 3 # Bowel Movements 3 Laboratory Tests Test 05/02/20 04:26 White Blood Count 5.2 K/UL (4.8-10.8) Red Blood Count 3.67 M/UL (4.20-5.40) L Hemoglobin 11.9 G/DL (12.0-16.0) L Hematocrit 35.1 % (37.0-47.0) L Mean Corpuscular Volume 95 FL (80-99) Mean Corpuscular Hemoglobin 32.5 PG (27.0-31.0) H Mean Corpuscular Hemoglobin Concent 34.1 G/DL (32.0-36.0) Red Cell Distribution Width 12.6 % (11.6-14.8) Platelet Count 166 K/UL (150-450) Mean Platelet Volume 6.0 FL (6.5-10.1) L Neutrophils (%) (Auto) 51.2 % (45.0-75.0) Lymphocytes (%) (Auto) 36.6 % (20.0-45.0) Monocytes (%) (Auto) 7.5 % (1.0-10.0) Eosinophils (%) (Auto) 3.6 % (0.0-3.0) H Basophils (%) (Auto) 1.1 % (0.0-2.0) Sodium Level 138 MMOL/L (136-145) Potassium Level 4.5 MMOL/L (3.5-5.1) Chloride Level 108 MMOL/L (98-107) H Carbon Dioxide Level 21 MMOL/L (21-32) Anion Gap 9 mmol/L (5-15) Blood Urea Nitrogen 8 mg/dL (7-18) Creatinine 0.7 MG/DL (0.55-1.30) Estimat Glomerular Filtration Rate > 60 mL/min (>60) Glucose Level 113 MG/DL (74-106) H Calcium Level 9.4 MG/DL (8.5-10.1) Phosphorus Level 5.1 MG/DL (2.5-4.9) H Magnesium Level 2.1 MG/DL (1.8-2.4) Total Bilirubin 0.8 MG/DL (0.2-1.0) Direct Bilirubin 0.2 MG/DL (0.0-0.3) Aspartate Amino Transf (AST/SGOT) 32 U/L (15-37) Alanine Aminotransferase (ALT/SGPT) 36 U/L (12-78) Alkaline Phosphatase 52 U/L (46-116) Total Protein 6.6 G/DL (6.4-8.2) Albumin 3.7 G/DL (3.4-5.0) Objective HEAD AND NECK: No JVD. LUNGS: Clear. CARDIOVASCULAR: Regular S1 and S2 with no gallop or murmur. ABDOMEN: Soft. EXTREMITIES: No pitting edema. Anish Nelson MD May 02, 2020 16:13
[2020-05-02] MEDS: TraZODone 50mg tab ORAL SCH (21:12)
[2020-05-03] VITALS (12 sets, daily range): BP systolic 116–166; BP diastolic 55–87
[2020-05-03 05:13] LABS: ANION GAP 9 mmol/L (5-15); BLOOD UREA NITROGEN 13 mg/dL (7-18); CARBON DIOXIDE 22 MMOL/L (21-32); CHLORIDE 107 MMOL/L (98-107); CREATININE 0.8 MG/DL (0.55-1.30); POTASSIUM 4.3 MMOL/L (3.5-5.1); SODIUM 138 MMOL/L (136-145)
[2020-05-03 05:38] LABS: EOSINOPHILS % (AUTO) 3.3 % (0.0-3.0); HEMATOCRIT 33.7 % (37.0-47.0); HEMOGLOBIN 11.6 G/DL (12.0-16.0); LYMPHOCYTES % (AUTO) 30.9 % (20.0-45.0); MEAN CORPUSCULAR VOLUME 95 FL (80-99); MONOCYTES % (AUTO) 8.8 % (1.0-10.0); PLATELET COUNT 169 K/UL (150-450); RED BLOOD COUNT 3.53 M/UL (4.20-5.40); RED CELL DISTRIBUTION WIDTH 12.4 % (11.6-14.8); WHITE BLOOD COUNT 5.9 K/UL (4.8-10.8)
[2020-05-03] MEDS: Creon DR 36,000 units cap ORAL SCH ×3 (06:30→17:07)
[2020-05-03] MEDS: Heparin 5000 units/ml inj SUBQ SCH ×2 (08:59→21:17)
[2020-05-03] MEDS: Aspirin Baby 81mg ORAL SCH (08:59)
[2020-05-03] MEDS: Bethanechol 25mg Tab ORAL SCH ×3 (09:00→17:07)
--- NOTE | 2020-05-03 09:11 | Nephrology Progress Note ---
Assessment/Plan Problem List: (1) Electrolyte imbalance (2) Dehydration (3) Failure to thrive (4) UTI (urinary tract infection) Assessment Dehydration, hypokalemia UTI Failure to thrive History of diabetes mellitus History of hypertension Plan May 03: Reviewed. Electrolytes and renal parameters stable. Patient transferred to [facility]. Continue per cardiology advice. May 02: Labs reviewed. Renal parameters stable. Patient is currently in ICU due to arrhythmia and pauses on rhythm strip that was detected yesterday. Patient is being considered to have a pacemaker by remote recruiter. Stable from renal standpoint of view. April 30: Status quo. Stable from renal standpoint of view. April 29: Renal parameters stable. Blood pressure stable. Medication list reviewed. Deviously: Slow hydration Adjust blood pressure medication with proper parameters Potassium supplement Monitor electrolytes Per consultants Subjective ROS Limited/Unobtainable: No Constitutional: Reports: weakness Objective Objective Last 24 Hour Vital Signs Date Time Temp Pulse Resp B/P (MAP) Pulse Ox O2 Delivery O2 Flow Rate FiO2 05/03/20 08:58 75 05/03/20 08:00 98.2 74 16 133/62 (85) 98 05/03/20 04:00 Room Air 05/03/20 04:00 97.9 71 20 116/55 (75) 97 05/03/20 04:00 71 05/03/20 00:00 96.4 73 18 118/57 (77) 97 05/03/20 00:00 Room Air 05/03/20 00:00 75 05/02/20 20:00 97.7 87 18 151/70 (97) 96 05/02/20 20:00 81 05/02/20 20:00 Room Air 05/02/20 18:00 84 22 132/57 (82) 97 05/02/20 17:00 79 21 139/57 (84) 97 05/02/20 17:00 78 21 139/57 (84) 97 05/02/20 16:00 98.0 82 20 150/58 (88) 98 05/02/20 16:00 76 05/02/20 16:00 79 24 150/58 (88) 98 05/02/20 16:00 Room Air 05/02/20 15:00 80 20 136/54 (81) 98 05/02/20 14:00 80 18 133/58 (83) 98 05/02/20 13:00 81 19 136/57 (83) 98 05/02/20 12:00 Room Air 05/02/20 12:00 78 05/02/20 12:00 97.8 73 17 120/47 (71) 97 05/02/20 11:00 80 21 137/62 (87) 98 05/02/20 10:00 84 21 148/64 (92) 96 Intake and Output 05/02/20 05/03/20 19:00 07:00 Intake Total 520 ml 600 ml Balance 520 ml 600 ml Intake Oral 320 ml IV Total 200 ml 600 ml # Voids 3 2 # Bowel Movements 1 1 Laboratory Tests 05/03/20 03:48: White Blood Count 5.9, Red Blood Count 3.53L, Hemoglobin 11.6L, Hematocrit 33.7L , Mean Corpuscular Volume 95, Mean Corpuscular Hemoglobin 32.8H, Mean Corpuscula r Hemoglobin Concent 34.4, Red Cell Distribution Width 12.4, Platelet Count 169, Mean Platelet Volume 7.0, Neutrophils (%) (Auto) 56.0, Lymphocytes (%) (Auto) 30.9, Monocytes (%) (Auto) 8.8, Eosinophils (%) (Auto) 3.3H, Basophils (%) ( Auto) 1.0, Sodium Level 138, Potassium Level 4.3, Chloride Level 107, Carbon Dioxide Level 22, Anion Gap 9, Blood Urea Nitrogen 13, Creatinine 0.8, Estimat Glomerular Filtration Rate > 60, Glucose Level 126H, Calcium Level 9.0 05/03/20 07:38: Activated Partial Thromboplast Time 24 Height (Feet): 5 Height (Inches): 2.00 Weight (Pounds): 115 General Appearance: no apparent distress Cardiovascular: normal rate Respiratory/Chest: lungs clear Objective No change Maximilian Guillen MD May 03, 2020 09:11
[2020-05-03] MEDS: Memantine 10mg tab ORAL SCH (09:21)
[2020-05-03] MEDS: Losartan 50mg tab ORAL SCH (09:21)
--- NOTE | 2020-05-03 09:45 | General Progress Note ---
Subjective Constitutional: Reports: weakness Allergies: Coded Allergies: No Known Allergies (Unverified , 04/26/20) All Systems: reviewed and negative except above Subjective calm in bed Objective Last 24 Hour Vital Signs Date Time Temp Pulse Resp B/P (MAP) Pulse Ox O2 Delivery O2 Flow Rate FiO2 05/03/20 09:21 133/62 05/03/20 09:21 75 133/62 05/03/20 08:58 75 05/03/20 08:00 98.2 74 16 133/62 (85) 98 05/03/20 04:00 Room Air 05/03/20 04:00 97.9 71 20 116/55 (75) 97 05/03/20 04:00 71 05/03/20 00:00 96.4 73 18 118/57 (77) 97 05/03/20 00:00 Room Air 05/03/20 00:00 75 05/02/20 20:00 97.7 87 18 151/70 (97) 96 05/02/20 20:00 81 05/02/20 20:00 Room Air 05/02/20 18:00 84 22 132/57 (82) 97 05/02/20 17:00 79 21 139/57 (84) 97 05/02/20 17:00 78 21 139/57 (84) 97 05/02/20 16:00 98.0 82 20 150/58 (88) 98 05/02/20 16:00 76 05/02/20 16:00 79 24 150/58 (88) 98 05/02/20 16:00 Room Air 05/02/20 15:00 80 20 136/54 (81) 98 05/02/20 14:00 80 18 133/58 (83) 98 05/02/20 13:00 81 19 136/57 (83) 98 05/02/20 12:00 Room Air 05/02/20 12:00 78 05/02/20 12:00 97.8 73 17 120/47 (71) 97 05/02/20 11:00 80 21 137/62 (87) 98 05/02/20 10:00 84 21 148/64 (92) 96 Intake and Output 05/02/20 05/03/20 19:00 07:00 Intake Total 520 ml 600 ml Balance 520 ml 600 ml Intake Oral 320 ml IV Total 200 ml 600 ml # Voids 3 2 # Bowel Movements 1 1 Laboratory Tests 05/03/20 03:48: White Blood Count 5.9, Red Blood Count 3.53L, Hemoglobin 11.6L, Hematocrit 33.7L , Mean Corpuscular Volume 95, Mean Corpuscular Hemoglobin 32.8H, Mean Corpuscular Hemoglobin Concent 34.4, Red Cell Distribution Width 12.4, Platelet Count 169, Mean Platelet Volume 7.0, Neutrophils (%) (Auto) 56.0, Lymphocytes (%) (Auto) 30.9, Monocytes (%) (Auto) 8.8, Eosinophils (%) (Auto) 3.3H, Basophils (%) (Auto) 1.0, Sodium Level 138, Potassium Level 4.3, Chloride Level 107, Carbon Dioxide Level 22, Anion Gap 9, Blood Urea Nitrogen 13, Creatinine 0.8, Estimat Glomerular Filtration Rate > 60, Glucose Level 126H, Calcium Level 9.0 05/03/20 07:38: Activated Partial Thromboplast Time 24 Height (Feet): 5 Height (Inches): 2.00 Weight (Pounds): 115 General Appearance: lethargic EENT: normal ENT inspection Neck: normal alignment Cardiovascular: normal peripheral pulses, normal rate, regular rhythm Respiratory/Chest: chest wall non-tender, lungs clear, normal breath sounds Abdomen: normal bowel sounds, non tender, soft Extremities: normal inspection Edema: no edema noted Arm (L), no edema noted Arm (R), no edema noted Leg (L), no edema noted Leg (R), no edema noted Pedal (L), no edema noted Pedal (R), no edema noted Generalized Neurologic: responsive, motor weakness Skin: normal pigmentation, warm/dry Assessment/Plan Problem List: (1) HTN (hypertension) ICD Codes: I10 - Essential (primary) hypertension SNOMED: 02380338 (2) Diabetes ICD Codes: E11.9 - Type 2 diabetes mellitus without complications SNOMED: 87437892 (3) Junctional rhythm ICD Codes: I49.8 - Other specified cardiac arrhythmias SNOMED: 84273275 (4) Dehydration ICD Codes: E86.0 - Dehydration SNOMED: 40201611 (5) Failure to thrive SNOMED: 86970062 Qualifiers: Qualified Codes: R62.7 - Adult failure to thrive (6) UTI (urinary tract infection) ICD Codes: N39.0 - Urinary tract infection, site not specified SNOMED: 80934175 Qualifiers: Qualified Codes: N39.0 - Urinary tract infection, site not specified Status: stable, progressing Assessment/Plan: pt diet abx cardio eval cbc bmp am pending rickyr Dakota Calvin DO May 03, 2020 09:45
--- NOTE | 2020-05-03 10:27 | Initial Psychiatric Evaluation ---
Psychiatry Consultation Psychiatry Consultation Chief Complaint: Generalized Weakness History of Present Illness: 85-year-old female appearance disheveled arterial agitated she is confused d isorganized clinical admission below her baseline worsened by the stress of her medical illness she has generalized weakness she was seen and assessed at bedside Mental status examination: 85-year-old female her appearance is disheveled at irritable agitated affect guarded restricted intellect poor mood depressed anxious moderately psychomotor station judgment poor orientation x3 speech is low volume slurred thought processes are disorganized logical insight judgment is poor Allergies: Coded Allergies: No Known Allergies (Unverified , 04/26/20) Medication History Scheduled Acyclovir* (Acyclovir*), 400 MG ORAL FOUR TIMES A DAY, (Reported) Alendronate Sodium* (Fosamax*), 70 MG ORAL ONCE A WEEK, (Reported) Amitriptyline HCl (Elavil*), 10 MG ORAL BEDTIME, (Reported) Amlodipine Besylate* (Amlodipine Besylate*), 10 MG ORAL DAILY, (Reported) Aspirin* (Aspirin*), 81 MG ORAL DAILY, (Reported) Baclofen* (Baclofen*), 10 MG ORAL PRN, (Reported) Bethanechol Chl (Bethanechol Chloride), 25 MG ORAL THREE TIMES A DAY, (Reported) Calcium Carb/Mag Hydrox/Simeth (Mylanta Tonight 800-270-80/10), 355 ML PO PRN, (Reported) Cholecalciferol (Vitamin D3) (Vitamin D3), 2 TAB PO DAILY, (Reported) Cholecalciferol (Vitamin D3) (Vitamin D3), 50 MCG PO DAILY, (Reported) Esomeprazole Magnesium (Esomeprazole Magnesium), 40 MG PO DAILY, (Reported) Febuxostat (Uloric), 40 MG ORAL DAILY, (Reported) Icosapent Ethyl (Vascepa), 1 GM PO BID, (Reported) Levocetirizine Dihydrochloride (Levocetirizine Dihydrochloride), 5 MG ORAL DAILY, (Reported) Linaclotide (Linzess), 290 MCG PO HS, (Reported) Lipase/Protease/Amylase (Creon Dr 36,000 Units Capsule), 1 EACH PO EVERY 8 HOURS, (Reported) Lorazepam (Lorazepam Intensol), 0.5 MG ORAL Q4HR, (Reported) Losartan Potassium* (Losartan Potassium*), 50 MG ORAL DAILY, (Reported) Magnesium Oxide (Magnesium Oxide), 400 MG PO BEDTIME, (Reported) Meclizine Hcl* (Meclizine*), 12.5 MG ORAL THREE TIMES A DAY, (Reported) Megestrol Acetate (Megestrol Acetate), 40 MG PO DAILY, (Reported) Memantine Hcl* (Namenda*), 10 MG ORAL DAILY, (Reported) Nebivolol Hcl* (Bystolic*), 5 MG ORAL DAILY, (Reported) Olopatadine HCl (Pazeo), 2.5 ML OP DAILY, (Reported) Ondansetron* (Zofran*), 4 MG ORAL DAILY, (Reported) Prazosin Hcl* (Minipress*), 1 MG PO BEDTIME, (Reported) Rosuvastatin Calcium* (Crestor*), 20 MG ORAL HS, (Reported) Suvorexant (Belsomra), 15 MG PO HS, (Reported) Trazodone Hcl* (Desyrel*), 50 MG ORAL BEDTIME, (Reported) Triamterene/Hydrochlorothiazide* (Dyazide 37.5-25 Mg Tab*), 1 TAB ORAL DAILY, (Reported) Scheduled PRN Acetaminophen* (Acetaminophen 325MG Tablet*), 325 MG ORAL Q4H PRN for Temp >100.5, (Reported) Clonidine Hcl* (Catapres*), 0.1 MG ORAL Q12HR PRN for For High Blood Pressure, (Reported) Lorazepam* (Ativan*), 0.5 MG ORAL Q8HR PRN for For Anxiety, (Reported) Miscellaneous Medications Memantine HCl/Donepezil HCl (Namzaric 14 mg-10 mg Capsule), 1 EACH PO, (Reported) Discontinued Medications Trazodone Hcl (Trazodone Hcl), Unknown Dose ORAL BEDTIME, (Reported) Discontinued Reason: Prescription changed Objective Data Height (Feet): 5 Height (Inches): 2.00 Weight (Pounds): 115 Assessment/Plan Assessment/Plan: Treat this patient with a medication regimen of Namenda 10 mg daily trazodone 50 mg nightly cognitive behavioral therapy, identifies on the negative thoughts (negative thoughts to more positive thoughts to reduce depression anxiety mood lability Diagnosis [place] I: 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
[2020-05-03] MEDS ORDERED: Lidocaine 1% Plain 30 ml INJ ONE (12:50)
[2020-05-03] MEDS ORDERED: Iothalamate Meglumine 60% 30ML INJ ONE (12:50)
[2020-05-03] MEDS ORDERED: Heparin 5000 units/ml inj ONE (12:50)
[2020-05-03] MEDS ORDERED: Bacitracin 50000 Units Vial ONE (12:50)
[2020-05-03] MEDS ORDERED: NeoSporin Gu Irrig 1ml Amp IRRIG ONE (12:50)
[2020-05-03] MEDS ORDERED: Isovue-M 300 15ml INJ ONE (13:16)
--- NOTE | 2020-05-03 13:16 | Cardiac Electrophysiology PN ---
Assessment/Plan Assessment/Plan 1. Sick sinus syndrome with multiple very long pauses of up to more than 7 seconds not due to a correctable cause. Ruled out for CT. Not hypothyroid. Has transcutaneous pacing patches. Off Bystolic and p.r.n. clonidine more than 5 days ago. Echo showed Nl EF. NPO for permanent pacemaker placement today 2. Hypertension. On Losartan 50 mg daily and amlodipine 10 mg daily. 3. UTI, on ceftriaxone. 4. Weakness and failure to thrive. CORNELIUS RN and grand daughter Jennifer at [phone] She agreed with the pacer Consent obtained. NPO for pacer Subjective Subjective HR as low as 32 on 12 lead ECG and was transferred to ICU as continued with multiple long pauses of more than 3 seconds including pause of more than 7 seconds! Transcutaneous patches are on. NPO for PPM implant today Objective Last 24 Hour Vital Signs Date Time Temp Pulse Resp B/P (MAP) Pulse Ox O2 Delivery O2 Flow Rate FiO2 05/03/20 12:00 72 05/03/20 12:00 98.2 71 19 129/72 (91) 100 71 05/03/20 09:21 133/62 05/03/20 09:21 75 133/62 05/03/20 08:58 75 05/03/20 08:00 98.2 74 16 133/62 (85) 98 05/03/20 08:00 Room Air 05/03/20 04:00 Room Air 05/03/20 04:00 97.9 71 20 116/55 (75) 97 05/03/20 04:00 71 05/03/20 00:00 96.4 73 18 118/57 (77) 97 05/03/20 00:00 Room Air 05/03/20 00:00 75 05/02/20 20:00 97.7 87 18 151/70 (97) 96 05/02/20 20:00 81 05/02/20 20:00 Room Air 05/02/20 18:00 84 22 132/57 (82) 97 05/02/20 17:00 79 21 139/57 (84) 97 05/02/20 17:00 78 21 139/57 (84) 97 05/02/20 16:00 98.0 82 20 150/58 (88) 98 05/02/20 16:00 76 05/02/20 16:00 79 24 150/58 (88) 98 05/02/20 16:00 Room Air 05/02/20 15:00 80 20 136/54 (81) 98 05/02/20 14:00 80 18 133/58 (83) 98 Intake and Output 05/02/20 05/03/20 19:00 07:00 Intake Total 520 ml 600 ml Balance 520 ml 600 ml Intake Oral 320 ml IV Total 200 ml 600 ml # Voids 3 2 # Bowel Movements 1 1 Laboratory Tests Test 05/03/20 03:48 05/03/20 07:38 White Blood Count 5.9 K/UL (4.8-10.8) Red Blood Count 3.53 M/UL (4.20-5.40) L Hemoglobin 11.6 G/DL (12.0-16.0) L Hematocrit 33.7 % (37.0-47.0) L Mean Corpuscular Volume 95 FL (80-99) Mean Corpuscular Hemoglobin 32.8 PG (27.0-31.0) H Mean Corpuscular Hemoglobin Concent 34.4 G/DL (32.0-36.0) Red Cell Distribution Width 12.4 % (11.6-14.8) Platelet Count 169 K/UL (150-450) Mean Platelet Volume 7.0 FL (6.5-10.1) Neutrophils (%) (Auto) 56.0 % (45.0-75.0) Lymphocytes (%) (Auto) 30.9 % (20.0-45.0) Monocytes (%) (Auto) 8.8 % (1.0-10.0) Eosinophils (%) (Auto) 3.3 % (0.0-3.0) H Basophils (%) (Auto) 1.0 % (0.0-2.0) Sodium Level 138 MMOL/L (136-145) Potassium Level 4.3 MMOL/L (3.5-5.1) Chloride Level 107 MMOL/L (98-107) Carbon Dioxide Level 22 MMOL/L (21-32) Anion Gap 9 mmol/L (5-15) Blood Urea Nitrogen 13 mg/dL (7-18) Creatinine 0.8 MG/DL (0.55-1.30) Estimat Glomerular Filtration Rate > 60 mL/min (>60) Glucose Level 126 MG/DL (74-106) H Calcium Level 9.0 MG/DL (8.5-10.1) Activated Partial Thromboplast Time 24 SEC (23-33) Microbiology Date/Time Source Procedure Growth Status 05/03/20 09:38 Nasopharynx SARS-CoV-2 RdRp Gene Assay - Final Complete Objective HEAD AND NECK: No JVD. LUNGS: Clear. CARDIOVASCULAR: Regular S1 and S2 with no gallop or murmur. ABDOMEN: Soft. EXTREMITIES: No pitting edema. Anish Nelson MD May 03, 2020 13:16
--- NOTE | 2020-05-03 13:17 | Pre-Procedure Note/Attestation ---
Pre-Procedure Note/Attestation Complete Prior to Procedure Planned Procedure: left Indications for Procedure Pre-Operative Diagnosis: SSS Attestation I attest that I discussed the nature of the procedure; its benefits; risks and complications; and alternatives (and the risks and benefits of such alternatives), prior to the procedure, with the patient (or the patient's legal business office representative). I attest that, if there was a reasonable possibility of needing a blood transfusion, the patient (or the patient's legal business office representative) was given the [facility] standardized written summary, pursuant to the [place] Blood Safety Act ([place] Health and Safety Code # 1645, as amended). I attest that I re-evaluated the patient just prior to the surgery and that the re has been no change in the patient's H&P, except as documented below: Anish Nelson MD May 03, 2020 13:17
[2020-05-03] MEDS ORDERED: D5W 550ml IV ONE (13:30)
[2020-05-03] MEDS ORDERED: LR 1000ml ONE (13:30)
[2020-05-03] MEDS ORDERED: D5W 275ml ONE (13:30)
[2020-05-03] MEDS ORDERED: Sterile Water Irrig 1000ml IRRIG ONE (13:30)
[2020-05-03] MEDS ORDERED: oxyCODONE HCL/Acetaminophen 5/325mg ORAL PRN (13:45)
[2020-05-03] MEDS ORDERED: LORazepam Inj 2mg/ml 1ml IV PRN (13:45)
[2020-05-03] MEDS ORDERED: Hydromorphone 0.5mg/0.5ml inj IVP PRN (13:45)
[2020-05-03] MEDS ORDERED: Labetalol 5mg/ml 20ml vial IV PRN (13:45)
[2020-05-03] MEDS ORDERED: Meperidine 25mg/0.5ml Inj (FOR RIGORS ONLY) IV PRN (13:45)
[2020-05-03] MEDS ORDERED: HYDROcodone/Acetamin 5/325 tab ORAL PRN (13:45)
[2020-05-03] MEDS ORDERED: LR 1000ml 1,000 ML IVLG SCH (13:45)
[2020-05-03] MEDS ORDERED: DiphenhydrAMINE 50mg/ml Inj IVP PRN (13:45)
[2020-05-03] MEDS ORDERED: Metoclopramide 10mg/2ml Inj IVP PRN (13:45)
[2020-05-03] MEDS ORDERED: Atropine Sulfate 0.4mg/ml inj IVP PRN (13:45)
[2020-05-03] MEDS ORDERED: Midazolam 2mg/2ml Inj IVP PRN (13:45)
[2020-05-03] MEDS ORDERED: HYDROcodone/Acetamin 7.5/325 tab ORAL PRN (13:45)
[2020-05-03] MEDS ORDERED: fentaNYL 100 mcg/2 mL IV PRN (13:45)
--- NOTE | 2020-05-03 13:49 | Anethesia Preoperative Eval ---
Anesthesia Pre-op PMH/ROS General Date of Evaluation: May 03, 2020 Time of Evaluation: 13:21 Anesthesiologist: Hannah ASA Score: ASA 4 - Emergency Mallampati Score Class I : Soft palate, uvula, fauces, pillars visible Class II: Soft palate, uvula, fauces visible Class III: Soft palate, base of uvula visible Class IV: Only hard plate visible Mallampati Classification: Class II Surgeon: Leslie Diagnosis: SSS Surgical Procedure: Permanent Pacemaker Anesthesia History: none Family History: no anesthesia problems Allergies: Coded Allergies: No Known Allergies (Unverified , 04/26/20) Medications: see eMAR Patient NPO?: Yes Past Medical History Cardiovascular: Reports: HTN Gastrointestinal/Genitourinary: Reports: other - UTI Hematology/Immune: Reports: anemia Musculoskeletal/Integumentary: Reports: other - Weakness, Failure to thrive Anesthesia Pre-op Phys. Exam Physician Exam Last Vital Signs Date Time Temp Pulse Resp B/P (MAP) Pulse Ox O2 Delivery O2 Flow Rate FiO2 05/03/20 12:00 72 05/03/20 12:00 98.2 19 129/72 (91) 100 05/03/20 12:00 Room Air Constitutional: NAD Neurologic: CN 2-12 intact Cardiovascular: RRR Respiratory: CTA Gastrointestinal: S/NT/ND Airway Exam Mallampati Score: Class II MO: limited ROM: limited Teeth: missing, intact Anesthesia Pre-op A/P Labs Hematology Test 05/03/20 03:48 White Blood Count 5.9 K/UL (4.8-10.8) Red Blood Count 3.53 M/UL (4.20-5.40) L Hemoglobin 11.6 G/DL (12.0-16.0) L Hematocrit 33.7 % (37.0-47.0) L Mean Corpuscular Volume 95 FL (80-99) Mean Corpuscular Hemoglobin 32.8 PG (27.0-31.0) H Mean Corpuscular Hemoglobin Concent 34.4 G/DL (32.0-36.0) Red Cell Distribution Width 12.4 % (11.6-14.8) Platelet Count 169 K/UL (150-450) Mean Platelet Volume 7.0 FL (6.5-10.1) Neutrophils (%) (Auto) 56.0 % (45.0-75.0) Lymphocytes (%) (Auto) 30.9 % (20.0-45.0) Monocytes (%) (Auto) 8.8 % (1.0-10.0) Eosinophils (%) (Auto) 3.3 % (0.0-3.0) H Basophils (%) (Auto) 1.0 % (0.0-2.0) Coagulation Test 05/03/20 07:38 Activated Partial Thromboplast Time 24 SEC (23-33) Chemistry Test 05/03/20 03:48 Sodium Level 138 MMOL/L (136-145) Potassium Level 4.3 MMOL/L (3.5-5.1) Chloride Level 107 MMOL/L (98-107) Carbon Dioxide Level 22 MMOL/L (21-32) Anion Gap 9 mmol/L (5-15) Blood Urea Nitrogen 13 mg/dL (7-18) Creatinine 0.8 MG/DL (0.55-1.30) Estimat Glomerular Filtration Rate > 60 mL/min (>60) Glucose Level 126 MG/DL (74-106) H Calcium Level 9.0 MG/DL (8.5-10.1) Risk Assessment & Plan Assessment: ASA 4E Plan: TIVA Pre-Antibiotics Dru Gram Ancef IV Given Within 1 Hr of Incision: Yes Time Given: 13:46 Giancarlo Young MD May 03, 2020 13:49
--- NOTE | 2020-05-03 13:54 | Hematology/Onc Progress Note ---
Assessment/Plan Assessment/Plan Assessment and Recs # Failure to thrive (FTT) - decreased bmi and low protein --> have ordered for cea level --> will obtain q3 day caloric counts --> may consider mirtazapine as appetite stimulant --> GI consult on a prn basis, as needed for endosc # Anemia of chronic disease due to underlying chronic medical issues, multifactorial v Gi bleed --> Anemia workup has been ordered, rule out gi bleed --> No evidence of hemolysis is noted, peripheral smear has been reviewed. --> Hgb goal >7. Transfuse prn. --> Epogen or iron at this time is not particularly indicated --> Medications have been reviewed # UTI (urinary tract infection) --> abx as per id, recs noted # Dehydration --> goal of euvolemia, ivf started # Situational depression --> per psych care # Sinus bradycardia --> persistent, to need PM per TOluie --> 9.27 ppm implantation # Hypertension. Off Bystolic. On losartan 50 mg daily and amlodipine 10 mg daily. --> cards recs # Weakness and failure to thrive Appreciate consultation and dw rn Subjective Constitutional: Denies: no symptoms, chills, fever, malaise, weakness, other HEENT: Denies: no symptoms, eye pain, blurred vision, tearing, double vision, ear pain, ear discharge, nose pain, nose congestion, throat pain, throat swelling, mouth pain, mouth swelling, other Cardiovascular: Denies: no symptoms, chest pain, edema, irregular heart rate, lightheadedness, palpitations, syncope, other Respiratory: Denies: no symptoms, cough, shortness of breath, SOB with excerti on, SOB at rest, sputum, wheezing, other Gastrointestinal/Abdominal: Denies: no symptoms, abdomen distended, abdominal pain, black stools, tarry stools, blood in stool, constipated, diarrhea, difficulty swallowing, nausea, poor appetite, poor fluid intake, rectal bleeding, vomiting, other Endocrine: Denies: no symptoms, excessive sweating, flushing, intolerance to cold, intolerance to heat, increased hunger, increased thirst, increased urine, unexplained weight gain, unexplained weight loss, other Hematologic/Lymphatic: Denies: no symptoms, anemia, easy bleeding, easy bruising, adenopathy, other Allergies: Coded Allergies: No Known Allergies (Unverified , 04/26/20) Subjective 05/03 has been npo after mn for ppm placement as per Leslie Objective Objective Current Medications Medications (Trade) Dose Ordered Sig/Carl Route PRN Reason Start Time Stop Time Status Last Admin Dose Admin Acetaminophen (Tylenol) 325 mg Q4H PRN ORAL Temp >100.5 04/27/20 11:45 05/27/20 11:44 Acetaminophen (Tylenol) 650 mg Q4H PRN ORAL Mild Pain (Pain Scale 1-3) 04/26/20 18:30 05/26/20 18:29 04/27/20 01:30 Acetaminophen/ Hydrocodone Bitart (Cassatt 5/325) 1 tab Q1H PRN ORAL Mild Pain (Pain Scale 1-3) 05/03/20 13:45 UNV Acetaminophen/ Hydrocodone Bitart (Cassatt 7.5/325) 1 tab Q1H PRN ORAL Moderate Pain (Pain Scale 4-6) 05/03/20 13:45 UNV Al Hydroxide/Mg Hydroxide (Mylanta) 15 ml Q1H PRN ORAL gi upset 05/03/20 13:45 UNV Alendronate Sodium (Fosamax) 70 mg ONCE A WEEK ORAL 04/28/20 06:30 05/28/20 06:29 04/28/20 06:16 Amitriptyline HCl (Elavil) 10 mg BEDTIME ORAL 04/27/20 21:00 05/27/20 20:59 05/02/20 21:12 Amlodipine Besylate (Norvasc) 10 mg DAILY ORAL 04/28/20 09:00 05/28/20 08:59 05/03/20 09:21 Amylase/Lipase/ Protease (Jarret DR 36,000 units cap) 1 ea BEFORE MEALS ORAL 04/27/20 16:30 07/26/20 16:29 05/02/20 17:09 Aspirin (ASA) 81 mg DAILY ORAL 04/28/20 09:00 06/12/20 08:59 05/02/20 08:04 Atropine Sulfate (Atropine 0.4mg/ ml) 0.5 mg Q5M PRN IVP HR<40 05/03/20 13:45 UNV Baclofen (Lioresal) 10 mg DAILYPRN PRN ORAL Muscle Spasm 04/27/20 12:15 05/27/20 12:14 Bethanechol Chloride (Urecholine) 25 mg THREE TIMES A DAY ORAL 04/27/20 13:00 05/27/20 12:59 05/02/20 17:09 Dextrose/ Electrolytes 1,000 ml @ 50 mls/hr Q20H IV 04/27/20 18:00 05/27/20 17:59 05/02/20 14:21 Diphenhydramine HCl (Benadryl) 25 mg Q15M PRN IVP Itching 05/03/20 13:45 UNV Fentanyl Citrate (Sublimaze 100 mcg/2 mL) 25 mcg Q10M PRN IV Moderate Pain (Pain Scale 4-6) 05/03/20 13:45 UNV Heparin Sodium (Porcine) (Heparin 5000 units/ml) 5,000 units EVERY 12 HOURS SUBQ 04/26/20 21:00 06/10/20 20:59 05/01/20 10:04 Hydromorphone HCl (Dilaudid) 0.5 mg Q15M PRN IVP Severe Pain (Pain Scale 7-10) 05/03/20 13:45 UNV Labetalol HCl (Normodyne) 5 mg Q10M PRN IV SBP>160 / DBP>90 05/03/20 13:45 05/04/20 13:44 UNV Lactated Ringer's 1,000 ml @ 10 mls/hr Q24H IVLG 05/03/20 13:45 05/03/20 15:44 UNV Linaclotide (Linzess) 290 mcg DAILY ORAL 04/27/20 14:00 07/26/20 13:59 05/03/20 09:21 Lorazepam (Ativan 2mg/ml 1ml) 1 mg Q15M PRN IV For Anxiety 05/03/20 13:45 UNV Lorazepam (Ativan) 0.5 mg Q8H PRN ORAL For Anxiety 04/27/20 11:45 05/04/20 11:44 Losartan Potassium (Cozaar) 50 mg DAILY ORAL 04/28/20 09:00 05/28/20 08:59 05/03/20 09:21 Memantine (Namenda) 10 mg DAILY ORAL 04/28/20 09:00 05/28/20 08:59 05/03/20 09:21 Meperidine HCl (Demerol) 25 mg Q5M PRN IV SHIVERING.MAY REPEAT X 1 05/03/20 13:45 UNV Metoclopramide HCl (Reglan) 10 mg Q1H PRN IVP Nausea & Vomiting 05/03/20 13:45 UNV Midazolam HCl (Versed 2mg/2ml vial) 1 mg Q15M PRN IVP For Anxiety 05/03/20 13:45 UNV Ondansetron HCl (Zofran) 4 mg Q1H PRN IVP Nausea & Vomiting 05/03/20 13:45 UNV Oxycodone/ Acetaminophen (Percocet 5-325) 1 tab Q1H PRN ORAL Severe Pain (Pain Scale 7-10) 05/03/20 13:45 UNV Pantoprazole (Protonix) 40 mg EVERY 12 HOURS ORAL 04/27/20 21:00 05/27/20 20:59 05/03/20 09:21 Trazodone HCl (Desyrel) 50 mg BEDTIME ORAL 04/27/20 21:00 05/27/20 20:59 05/02/20 21:12 Last 24 Hour Vital Signs Date Time Temp Pulse Resp B/P (MAP) Pulse Ox O2 Delivery O2 Flow Rate FiO2 05/03/20 12:00 72 05/03/20 12:00 98.2 71 19 129/72 (91) 100 71 05/03/20 12:00 Room Air 05/03/20 09:21 133/62 05/03/20 09:21 75 133/62 05/03/20 08:58 75 05/03/20 08:00 98.2 74 16 133/62 (85) 98 05/03/20 08:00 Room Air 05/03/20 04:00 Room Air 05/03/20 04:00 97.9 71 20 116/55 (75) 97 05/03/20 04:00 71 05/03/20 00:00 96.4 73 18 118/57 (77) 97 05/03/20 00:00 Room Air 05/03/20 00:00 75 05/02/20 20:00 97.7 87 18 151/70 (97) 96 05/02/20 20:00 81 05/02/20 20:00 Room Air 05/02/20 18:00 84 22 132/57 (82) 97 05/02/20 17:00 79 21 139/57 (84) 97 05/02/20 17:00 78 21 139/57 (84) 97 05/02/20 16:00 98.0 82 20 150/58 (88) 98 05/02/20 16:00 76 05/02/20 16:00 79 24 150/58 (88) 98 05/02/20 16:00 Room Air 05/02/20 15:00 80 20 136/54 (81) 98 05/02/20 14:00 80 18 133/58 (83) 98 05/02/20 13:00 81 19 136/57 (83) 98 05/02/20 12:00 Room Air 05/02/20 12:00 78 05/02/20 12:00 97.8 73 17 120/47 (71) 97 05/02/20 11:00 80 21 137/62 (87) 98 05/02/20 10:00 84 21 148/64 (92) 96 05/02/20 09:00 78 20 153/65 (94) 95 05/02/20 08:04 139/71 05/02/20 08:04 77 139/71 05/02/20 08:00 98.1 72 20 139/71 (93) 97 05/02/20 08:00 Room Air 05/02/20 08:00 77 05/02/20 07:00 66 18 100/42 (61) 95 05/02/20 06:00 63 18 123/60 (81) 99 05/02/20 05:00 66 26 143/62 (89) 98 05/02/20 04:00 97.8 76 18 142/55 (84) 99 05/02/20 04:00 Room Air 05/02/20 03:02 70 05/02/20 03:00 71 19 147/61 (89) 97 05/02/20 02:00 69 19 138/51 (80) 97 05/02/20 01:00 69 18 123/51 (75) 96 05/02/20 00:00 Room Air 05/02/20 00:00 98.1 69 19 118/50 (72) 95 05/01/20 23:10 70 05/01/20 23:00 83 15 136/49 (78) 96 05/01/20 22:00 74 23 138/55 (82) 97 05/01/20 21:00 77 19 120/53 (75) 98 05/01/20 20:00 98.1 75 22 136/60 (85) 97 05/01/20 20:00 Room Air 05/01/20 19:20 85 05/01/20 19:00 79 20 119/66 (83) 97 05/01/20 18:00 83 22 118/78 (91) 97 05/01/20 17:00 98 25 135/98 (110) 97 05/01/20 16:26 82 05/01/20 16:00 Room Air 05/01/20 16:00 98.2 80 22 132/56 (81) 97 05/01/20 15:00 79 22 137/58 (84) 97 05/01/20 14:00 77 20 140/62 (88) 97 Intake and Output 05/02/20 05/03/20 19:00 07:00 Intake Total 520 ml 600 ml Balance 520 ml 600 ml Intake Oral 320 ml IV Total 200 ml 600 ml # Voids 3 2 # Bowel Movements 1 1 Labs Test 05/01/20 05:40 05/01/20 09:45 05/02/20 04:26 05/03/20 03:48 White Blood Count 5.3 K/UL (4.8-10.8) 5.2 K/UL (4.8-10.8) 5.9 K/UL (4.8-10.8) Red Blood Count 3.59 M/UL (4.20-5.40) 3.67 M/UL (4.20-5.40) 3.53 M/UL (4.20-5.40) Hemoglobin 11.7 G/DL (12.0-16.0) 11.9 G/DL (12.0-16.0) 11.6 G/DL (12.0-16.0) Hematocrit 34.0 % (37.0-47.0) 35.1 % (37.0-47.0) 33.7 % (37.0-47.0) Mean Corpuscular Volume 95 FL (80-99) 95 FL (80-99) 95 FL (80-99) Mean Corpuscular Hemoglobin 32.6 PG (27.0-31.0) 32.5 PG (27.0-31.0) 32.8 PG (27.0-31.0) Mean Corpuscular Hemoglobin Concent 34.4 G/DL (32.0-36.0) 34.1 G/DL (32.0-36.0) 34.4 G/DL (32.0-36.0) Red Cell Distribution Width 12.4 % (11.6-14.8) 12.6 % (11.6-14.8) 12.4 % (11.6-14.8) Platelet Count 157 K/UL (150-450) 166 K/UL (150-450) 169 K/UL (150-450) Mean Platelet Volume 6.2 FL (6.5-10.1) 6.0 FL (6.5-10.1) 7.0 FL (6.5-10.1) Neutrophils (%) (Auto) 44.5 % (45.0-75.0) 51.2 % (45.0-75.0) 56.0 % (45.0-75.0) Lymphocytes (%) (Auto) 43.0 % (20.0-45.0) 36.6 % (20.0-45.0) 30.9 % (20.0-45.0) Monocytes (%) (Auto) 7.9 % (1.0-10.0) 7.5 % (1.0-10.0) 8.8 % (1.0-10.0) Eosinophils (%) (Auto) 3.7 % (0.0-3.0) 3.6 % (0.0-3.0) 3.3 % (0.0-3.0) Basophils (%) (Auto) 1.0 % (0.0-2.0) 1.1 % (0.0-2.0) 1.0 % (0.0-2.0) Sodium Level 140 MMOL/L (136-145) 138 MMOL/L (136-145) 138 MMOL/L (136-145) Potassium Level 4.3 MMOL/L (3.5-5.1) 4.5 MMOL/L (3.5-5.1) 4.3 MMOL/L (3.5-5.1) Chloride Level 109 MMOL/L (98-107) 108 MMOL/L (98-107) 107 MMOL/L (98-107) Carbon Dioxide Level 20 MMOL/L (21-32) 21 MMOL/L (21-32) 22 MMOL/L (21-32) Anion Gap 11 mmol/L (5-15) 9 mmol/L (5-15) 9 mmol/L (5-15) Blood Urea Nitrogen 13 mg/dL (7-18) 8 mg/dL (7-18) 13 mg/dL (7-18) Creatinine 0.7 MG/DL (0.55-1.30) 0.7 MG/DL (0.55-1.30) 0.8 MG/DL (0.55-1.30) Estimat Glomerular Filtration Rate > 60 mL/min (>60) > 60 mL/min (>60) > 60 mL/min (>60) Glucose Level 103 MG/DL (74-106) 113 MG/DL (74-106) 126 MG/DL (74-106) Calcium Level 9.3 MG/DL (8.5-10.1) 9.4 MG/DL (8.5-10.1) 9.0 MG/DL (8.5-10.1) Troponin I 0.008 ng/mL (0.000-0.056) Prothrombin Time 10.3 SEC (9.30-11.50) Prothromb Time International Ratio 0.9 (0.9-1.1) Activated Partial Thromboplast Time 25 SEC (23-33) Phosphorus Level 5.1 MG/DL (2.5-4.9) Magnesium Level 2.1 MG/DL (1.8-2.4) Total Bilirubin 0.8 MG/DL (0.2-1.0) Direct Bilirubin 0.2 MG/DL (0.0-0.3) Aspartate Amino Transf (AST/SGOT) 32 U/L (15-37) Alanine Aminotransferase (ALT/SGPT) 36 U/L (12-78) Alkaline Phosphatase 52 U/L (46-116) Total Protein 6.6 G/DL (6.4-8.2) Albumin 3.7 G/DL (3.4-5.0) Test 05/03/20 07:38 Activated Partial Thromboplast Time 24 SEC (23-33) Micro Microbiology Date/Time Source Procedure Growth Status 05/03/20 09:38 Nasopharynx SARS-CoV-2 RdRp Gene Assay - Final Complete Height (Feet): 5 Height (Inches): 2.00 Weight (Pounds): 115 Objective Vitals: reviewed, stable General Appearance: NAD HEENT: normocephalic, atraumatic Neck: non-tender, normal alignment Respiratory/Chest: normal breath sounds bilaterally Cardiovascular/Chest: normal peripheral pulses, normal rate Abdomen: normal bowel sounds, soft, nontender Extremities: normal range of motion Mikey Martinez MD May 03, 2020 13:54
--- NOTE | 2020-05-03 14:07 | Immediate Post-Op Evaluation ---
Immediate Post-Op Evalulation Immediate Post-Op Evalulation Procedure: Permanent Pacemaker Date of Evaluation: May 03, 2020 Time of Evaluation: 17:23 IV Fluids: 900 LR Blood Products: 0 Estimated Blood Loss: 10 Urinary Output: 0 Blood Pressure Systolic: 166 Blood Pressure Diastolic: 78 Pulse Rate: 95 Respiratory Rate: 16 O2 Sat by Pulse Oximetry: 100 Temperature (Fahrenheit): 97.4 Pain Score (1-10): 1 Nausea: No Vomiting: No Complications 0 Patient Status: awake, reacts, patent, none Hydration Status: adequate Dru Gram Ancef IV Given Within 1 Hr of Incision: Yes Time Given: 13:46 Giancarlo Young MD May 03, 2020 14:07
--- NOTE | 2020-05-03 14:57 | Brief Operative Note ---
Immediate Post Operative Note Operative Note Pre-op Diagnosis: SSS Procedure: successful DDD SJ ppm implantation dictated [id number] Post-op Diagnosis: same as pre-op Specimen: none Complications: none Condition: stable Fluids: none Estimated Blood Loss: minimal Implant(s) used?: Yes Anish Nelson MD May 03, 2020 14:57
[2020-05-03] MEDS ORDERED: Morphine Sulfate 2mg/ml Inj(IV/IM USE ONLY) IVP PRN (15:00)
[2020-05-03] MEDS ORDERED: Tylenol #3 tab (300mg/30mg) ORAL PRN (15:00)
--- NOTE | 2020-05-03 15:00 | Cardiology Report ---
APPROVED REPORT EKG Measurement Heart [id number] MO [id number] [id number] <Conclusion> Normal sinus rhythm Nonspecific T wave abnormality Abnormal ECG
[2020-05-03] MEDS: D5 1/2NS w/KCl 40meq 1000ml 1,000 ML IV SCH (16:29)
[2020-05-03] MEDS: TraZODone 50mg tab ORAL SCH (21:15)
[2020-05-03] MEDS: ceFAZolin sod 1 GM in D5W 55 ML IVP SCH (21:17)
--- NOTE | 2020-05-03 22:15 | Procedure Note ---
DATE OF PROCEDURE: 05/03/2020 DUAL-CHAMBER PERMANENT PACEMAKER IMPLANTATION INDICATION FOR THE PROCEDURE: Sick sinus syndrome with multiple long pauses including pauses of more than 7 seconds not due to a correctable cause. PROCEDURES PERFORMED: 1. Dual-chamber permanent pacemaker implantation. 2. Fluoroscopic supervision and interpretation. 3. Pacemaker programming during initial implant. OPERATIVE REPORT: The patient was brought into the operating room in the fasting state after informed consent was obtained. The patient was prepped and draped in the usual fashion. Conscious sedation was provided by the anesthesiologist. Time-out was performed. The patient received Ancef within an hour of incision. After prep and drape and under sterile condition, a total of 20 mL of lidocaine was given to left prepectoralis area. An incision was made along the left deltopectoral groove. Sharp and blunt dissection was made to the level of pectoralis fascia. The cephalic vein was isolated and cutdown was performed. The right atrial and right ventricular lead was placed through this access and was placed in right atrial appendage. Right ventricular apex with excellent sensing and pacing parameters. Both leads were then affixed to underlying pectoralis fascia. A pocket was made close to the venous access site and was irrigated with antibiotic solution. Both leads were then connected to the pacemaker and left in the pocket. The pocket was closed in three layers using 2-0 Vicryl and Dermabond. The patient suffered no immediate complications from the procedure and was transferred to the recovery room in stable condition. FINDINGS: The pacemaker is from [employer]. It is model 2272, serial number #[id number]. Right atrial lead is from [employer]. It is model number 2088TC 46 cm, serial number [id number]. Right ventricular lead is from [employer], model number 2088TC 52 cm, serial number [id number]. The P-wave amplitude is 2.6 millivolts, threshold is 1.75 volts at 0.4 milliseconds, impedance of 510 ohms. R-wave was 7.8 millivolts, threshold was 0.75 volts at 0.4 milliseconds, impedance of 406 ohms. IMPRESSION: 1. Successful dual-chamber permanent pacemaker implantation. 2. Pacemaker was programmed to lower rate of 60 and upper rate of 120. 3. No immediate complications from the procedure. Anish Nelson M.D. DR: GÉNESIS JOB#: [id number] CC:
[2020-05-04] VITALS: BP 120/60
[2020-05-04 04:00] VITALS: BP 124/61
[2020-05-04 05:28] LABS: BASOPHILS % (AUTO) 0.7 % (0.0-2.0); EOSINOPHILS % (AUTO) 3.4 % (0.0-3.0); HEMATOCRIT 33.4 % (37.0-47.0); HEMOGLOBIN 11.4 G/DL (12.0-16.0); LYMPHOCYTES % (AUTO) 31.9 % (20.0-45.0); MEAN CORPUSCULAR VOLUME 95 FL (80-99); MONOCYTES % (AUTO) 7.6 % (1.0-10.0); NEUTROPHILS % (AUTO) 56.5 % (45.0-75.0); PLATELET COUNT 148 K/UL (150-450); RED BLOOD COUNT 3.51 M/UL (4.20-5.40); RED CELL DISTRIBUTION WIDTH 12.2 % (11.6-14.8); WHITE BLOOD COUNT 5.9 K/UL (4.8-10.8)
[2020-05-04 05:47] LABS: ANION GAP 11 mmol/L (5-15); BLOOD UREA NITROGEN 12 mg/dL (7-18); CALCIUM 8.6 MG/DL (8.5-10.1); CARBON DIOXIDE 22 MMOL/L (21-32); CHLORIDE 109 MMOL/L (98-107); CREATININE 0.7 MG/DL (0.55-1.30); POTASSIUM 4.3 MMOL/L (3.5-5.1); SODIUM 142 MMOL/L (136-145)
[2020-05-04] MEDS: ceFAZolin sod 1 GM in D5W 55 ML IVP SCH (06:27)
[2020-05-04] MEDS: Creon DR 36,000 units cap ORAL SCH (06:27)
[2020-05-04 08:00] VITALS: BP 143/75
[2020-05-04] MEDS: Aspirin Baby 81mg ORAL SCH (08:41)
[2020-05-04 08:42] VITALS: BP 143/75
[2020-05-04] MEDS: Losartan 50mg tab ORAL SCH (08:42)
[2020-05-04] MEDS: Bethanechol 25mg Tab ORAL SCH (08:42)
[2020-05-04] MEDS: Memantine 10mg tab ORAL SCH (08:42)
--- NOTE | 2020-05-04 08:47 | Initial Psychiatric Evaluation ---
Psychiatry Consultation Psychiatry Consultation Chief Complaint: Generalized Weakness History of Present Illness: 85-year-old female she still has altered mental status she has failure to thrive dehydration hypertension urinary tract infection and overall altered mental status confusion her cognition has declined below her baseline so her attending has requested daily psychiatric consultation to try to prevent further decline in her cognition she was seen and assessed at bedside still confused and disorganized Mental status examination: 85-year-old female her appearance is disheveled attitude irritable agitated affect guarded and restricted intellect poor mood depressed anxious motor activity psychomotor station attachments poor orientation x1 speech is nonsensical thought process disorganized logical insight and judgment is poor Allergies: Coded Allergies: No Known Allergies (Unverified , 04/26/20) Medication History Scheduled Acyclovir* (Acyclovir*), 400 MG ORAL FOUR TIMES A DAY, (Reported) Alendronate Sodium* (Fosamax*), 70 MG ORAL ONCE A WEEK, (Reported) Amitriptyline HCl (Elavil*), 10 MG ORAL BEDTIME, (Reported) Amlodipine Besylate* (Amlodipine Besylate*), 10 MG ORAL DAILY, (Reported) Aspirin* (Aspirin*), 81 MG ORAL DAILY, (Reported) Baclofen* (Baclofen*), 10 MG ORAL PRN, (Reported) Bethanechol Chl (Bethanechol Chloride), 25 MG ORAL THREE TIMES A DAY, (Reported) Calcium Carb/Mag Hydrox/Simeth (Mylanta Tonight 800-270-80/10), 355 ML PO PRN, (Reported) Cholecalciferol (Vitamin D3) (Vitamin D3), 2 TAB PO DAILY, (Reported) Cholecalciferol (Vitamin D3) (Vitamin D3), 50 MCG PO DAILY, (Reported) Esomeprazole Magnesium (Esomeprazole Magnesium), 40 MG PO DAILY, (Reported) Febuxostat (Uloric), 40 MG ORAL DAILY, (Reported) Icosapent Ethyl (Vascepa), 1 GM PO BID, (Reported) Levocetirizine Dihydrochloride (Levocetirizine Dihydrochloride), 5 MG ORAL ALIZE LY, (Reported) Linaclotide (Linzess), 290 MCG PO HS, (Reported) Lipase/Protease/Amylase (Creon Dr 36,000 Units Capsule), 1 EACH PO EVERY 8 HOURS, (Reported) Lorazepam (Lorazepam Intensol), 0.5 MG ORAL Q4HR, (Reported) Losartan Potassium* (Losartan Potassium*), 50 MG ORAL DAILY, (Reported) Magnesium Oxide (Magnesium Oxide), 400 MG PO BEDTIME, (Reported) Meclizine Hcl* (Meclizine*), 12.5 MG ORAL THREE TIMES A DAY, (Reported) Megestrol Acetate (Megestrol Acetate), 40 MG PO DAILY, (Reported) Memantine Hcl* (Namenda*), 10 MG ORAL DAILY, (Reported) Nebivolol Hcl* (Bystolic*), 5 MG ORAL DAILY, (Reported) Olopatadine HCl (Pazeo), 2.5 ML OP DAILY, (Reported) Ondansetron* (Zofran*), 4 MG ORAL DAILY, (Reported) Prazosin Hcl* (Minipress*), 1 MG PO BEDTIME, (Reported) Rosuvastatin Calcium* (Crestor*), 20 MG ORAL HS, (Reported) Suvorexant (Belsomra), 15 MG PO HS, (Reported) Trazodone Hcl* (Desyrel*), 50 MG ORAL BEDTIME, (Reported) Triamterene/Hydrochlorothiazide* (Dyazide 37.5-25 Mg Tab*), 1 TAB ORAL DAILY, (Reported) Scheduled PRN Acetaminophen* (Acetaminophen 325MG Tablet*), 325 MG ORAL Q4H PRN for Temp >100.5, (Reported) Clonidine Hcl* (Catapres*), 0.1 MG ORAL Q12HR PRN for For High Blood Pressure, (Reported) Lorazepam* (Ativan*), 0.5 MG ORAL Q8HR PRN for For Anxiety, (Reported) Miscellaneous Medications Memantine HCl/Donepezil HCl (Namzaric 14 mg-10 mg Capsule), 1 EACH PO, (Reported) Discontinued Medications Trazodone Hcl (Trazodone Hcl), Unknown Dose ORAL BEDTIME, (Reported) Discontinued Reason: Prescription changed Objective Data Height (Feet): 5 Height (Inches): 2.00 Weight (Pounds): 141 Assessment/Plan Assessment/Plan: Treat this patient with a medication regimen of Namenda 10 mg daily trazodone 50 mg nightly cognitive behavioral therapy, identifies on the negative thoughts (negative thoughts to more positive thoughts to reduce depression anxiety mood lability Diagnosis Sixes I: 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
[2020-05-04] MEDS: Heparin 5000 units/ml inj SUBQ SCH (09:00)
--- NOTE | 2020-05-04 09:42 | Diagnostic Imaging Report ---
EXAM: XR Chest, 1 View CLINICAL HISTORY: Evaluate for pneumothorax. TECHNIQUE: Frontal view of the chest. COMPARISON: Chest radiograph April 26, 2020 FINDINGS/IMPRESSION: No focal consolidation, pleural effusion, or pneumothorax. Mild, chronically increased interstitial markings. Cardiomegaly. Dual-lead pacemaker in the right atrial and right ventricle. Diffuse osseous demineralization.
--- NOTE | 2020-05-04 09:42 | General Progress Note ---
Subjective Constitutional: Reports: weakness Allergies: Coded Allergies: No Known Allergies (Unverified , 04/26/20) All Systems: reviewed and negative except above Subjective calm in bed s/p pacer Objective Last 24 Hour Vital Signs Date Time Temp Pulse Resp B/P (MAP) Pulse Ox O2 Delivery O2 Flow Rate FiO2 05/04/20 08:42 143/75 05/04/20 08:42 81 143/75 05/04/20 04:00 Room Air Room Air 05/04/20 04:00 97.3 20 124/61 (82) 100 05/04/20 03:42 65 05/04/20 00:00 77 05/04/20 00:00 Room Air Room Air 05/04/20 00:00 98.1 20 120/60 (80) 100 05/03/20 20:00 97.9 20 121/65 (83) 100 05/03/20 20:00 Room Air Room Air 05/03/20 19:35 83 05/03/20 16:17 74 05/03/20 16:00 Room Air Room Air 05/03/20 15:55 97.1 79 20 156/74 100 Nasal Cannula 3 05/03/20 15:40 78 20 165/66 100 Nasal Cannula 3 05/03/20 15:25 79 24 161/70 100 Simple Mask 6 05/03/20 15:15 78 24 124/87 100 Simple Mask 6 05/03/20 15:05 81 23 164/64 100 Simple Mask 6 05/03/20 15:01 95 16 100 05/03/20 15:00 84 24 146/69 100 Simple Mask 6 05/03/20 14:57 97.0 93 21 166/78 100 Simple Mask 6 05/03/20 12:00 72 05/03/20 12:00 98.2 71 19 129/72 (91) 100 71 05/03/20 12:00 Room Air Intake and Output 05/03/20 05/04/20 19:00 07:00 Intake Total 1385 ml 755 ml Balance 1385 ml 755 ml Intake Oral 110 ml 100 ml IV Total 1275 ml 655 ml # Voids 2 3 Laboratory Tests 05/04/20 04:54: White Blood Count 5.9, Red Blood Count 3.51L, Hemoglobin 11.4L, Hematocrit 33.4L , Mean Corpuscular Volume 95, Mean Corpuscular Hemoglobin 32.6H, Mean Corpuscular Hemoglobin Concent 34.3, Red Cell Distribution Width 12.2, Platelet Count 148L, Mean Platelet Volume 6.5, Neutrophils (%) (Auto) 56.5, Lymphocytes (%) (Auto) 31.9, Monocytes (%) (Auto) 7.6, Eosinophils (%) (Auto) 3.4H, Basophils (%) (Auto) 0.7, Sodium Level 142, Potassium Level 4.3, Chloride Level 109H, Carbon Dioxide Level 22, Anion Gap 11, Blood Urea Nitrogen 12, Creatinine 0.7, Estimat Glomerular Filtration Rate > 60, Glucose Level 102, Calcium Level 8.6 Height (Feet): 5 Height (Inches): 2.00 Weight (Pounds): 141 General Appearance: lethargic EENT: normal ENT inspection Neck: normal alignment Cardiovascular: normal peripheral pulses, normal rate, regular rhythm Respiratory/Chest: chest wall non-tender, lungs clear, normal breath sounds Abdomen: normal bowel sounds, non tender, soft Extremities: normal inspection Edema: no edema noted Arm (L), no edema noted Arm (R), no edema noted Leg (L), no edema noted Leg (R), no edema noted Pedal (L), no edema noted Pedal (R), no edema noted Generalized Neurologic: motor weakness Skin: normal pigmentation, warm/dry Assessment/Plan Problem List: (1) HTN (hypertension) ICD Codes: I10 - Essential (primary) hypertension SNOMED: 18135282 (2) Diabetes ICD Codes: E11.9 - Type 2 diabetes mellitus without complications SNOMED: 87271042 (3) Junctional rhythm ICD Codes: I49.8 - Other specified cardiac arrhythmias SNOMED: 13396916 (4) Dehydration ICD Codes: E86.0 - Dehydration SNOMED: 81529994 (5) Failure to thrive SNOMED: 87197427 Qualifiers: Qualified Codes: R62.7 - Adult failure to thrive (6) UTI (urinary tract infection) ICD Codes: N39.0 - Urinary tract infection, site not specified SNOMED: 11856087 Qualifiers: Qualified Codes: N39.0 - Urinary tract infection, site not specified Status: stable, progressing Assessment/Plan: pt diet abx cardio eval dc if clear Dakota Calvin DO May 04, 2020 09:42
[2020-05-04] MEDS: D5 1/2NS w/KCl 40meq 1000ml 1,000 ML IV SCH (10:00)
--- NOTE | 2020-05-04 10:13 | Cardiac Electrophysiology PN ---
Assessment/Plan Assessment/Plan 1. Sick sinus syndrome with multiple very long pauses of up to more than 7 seconds not due to a correctable cause. Ruled out for [place]. Not hypothyroid. Has transcutaneous pacing patches. Off Bystolic and p.r.n. clonidine more than 5 days ago. Echo showed Nl EF. S/P St Santy permanent pacemaker placement yesterday. Interrogated today and showed Nl Fx. CXR no Ptx and excellent lead location 2. Hypertension. On Losartan 50 mg daily and amlodipine 10 mg daily. 3. UTI, on ceftriaxone. 4. Weakness and failure to thrive. DW RN, Dr Calvin and grand daughter Jennifer at [phone] [place] to DC from cardiac perspective with FU with me in 1-2 weeks Subjective Subjective HR as low as 32 on 12 lead ECG and was transferred to ICU as continued with multiple long pauses of more than 3 seconds including pause of more than 7 seconds ! No more laya after DDD St Santy PPM implant yesterday. Pacer interrogated today and showed Nl Fx. Objective Last 24 Hour Vital Signs Date Time Temp Pulse Resp B/P (MAP) Pulse Ox O2 Delivery O2 Flow Rate FiO2 05/04/20 08:42 143/75 05/04/20 08:42 81 143/75 05/04/20 08:00 Room Air Room Air 05/04/20 04:00 Room Air Room Air 05/04/20 04:00 97.3 20 124/61 (82) 100 05/04/20 03:42 65 05/04/20 00:00 77 05/04/20 00:00 Room Air Room Air 05/04/20 00:00 98.1 20 120/60 (80) 100 05/03/20 20:00 97.9 20 121/65 (83) 100 05/03/20 20:00 Room Air Room Air 05/03/20 19:35 83 05/03/20 16:17 74 05/03/20 16:00 Room Air Room Air 05/03/20 15:55 97.1 79 20 156/74 100 Nasal Cannula 3 05/03/20 15:40 78 20 165/66 100 Nasal Cannula 3 05/03/20 15:25 79 24 161/70 100 Simple Mask 6 05/03/20 15:15 78 24 124/87 100 Simple Mask 6 9/27/20 15:05 81 23 164/64 100 Simple Mask 6 05/03/20 15:01 95 16 100 05/03/20 15:00 84 24 146/69 100 Simple Mask 6 05/03/20 14:57 97.0 93 21 166/78 100 Simple Mask 6 05/03/20 12:00 72 05/03/20 12:00 98.2 71 19 129/72 (91) 100 71 05/03/20 12:00 Room Air Intake and Output 05/03/20 05/04/20 18:59 06:59 Intake Total 1385 ml 755 ml Balance 1385 ml 755 ml Intake Oral 110 ml 100 ml IV Total 1275 ml 655 ml # Voids 2 3 Laboratory Tests Test 05/04/20 04:54 White Blood Count 5.9 K/UL (4.8-10.8) Red Blood Count 3.51 M/UL (4.20-5.40) L Hemoglobin 11.4 G/DL (12.0-16.0) L Hematocrit 33.4 % (37.0-47.0) L Mean Corpuscular Volume 95 FL (80-99) Mean Corpuscular Hemoglobin 32.6 PG (27.0-31.0) H Mean Corpuscular Hemoglobin Concent 34.3 G/DL (32.0-36.0) Red Cell Distribution Width 12.2 % (11.6-14.8) Platelet Count 148 K/UL (150-450) L Mean Platelet Volume 6.5 FL (6.5-10.1) Neutrophils (%) (Auto) 56.5 % (45.0-75.0) Lymphocytes (%) (Auto) 31.9 % (20.0-45.0) Monocytes (%) (Auto) 7.6 % (1.0-10.0) Eosinophils (%) (Auto) 3.4 % (0.0-3.0) H Basophils (%) (Auto) 0.7 % (0.0-2.0) Sodium Level 142 MMOL/L (136-145) Potassium Level 4.3 MMOL/L (3.5-5.1) Chloride Level 109 MMOL/L (98-107) H Carbon Dioxide Level 22 MMOL/L (21-32) Anion Gap 11 mmol/L (5-15) Blood Urea Nitrogen 12 mg/dL (7-18) Creatinine 0.7 MG/DL (0.55-1.30) Estimat Glomerular Filtration Rate > 60 mL/min (>60) Glucose Level 102 MG/DL (74-106) Calcium Level 8.6 MG/DL (8.5-10.1) Microbiology Date/Time Source Procedure Growth Status 05/03/20 09:38 Nasopharynx SARS-CoV-2 RdRp Gene Assay - Final Complete Objective HEAD AND NECK: No JVD. LUNGS: Clear. CARDIOVASCULAR: Regular S1 and S2 with no gallop or murmur. ABDOMEN: Soft. EXTREMITIES: No pitting edema. Anish Nelson MD May 04, 2020 10:13
--- NOTE | 2020-05-04 11:08 | Infectious Diseases Prog Note ---
Assessment/Plan Assessment: COVID19 neg x1 (04/26 rapid COVID PCR neg) -04/26 CXR: Mild accentuation of interstitial markings. No consolidation. Pyuria/bacteriuria- UTI c/w bacteremia -u/a wbc 10-25, nit neg, leuk +3; ucx <10k E.coli, 10-20k dpheroids Bacteremia- Likely a contaminant -04/26 Bcx 1/ SPHINGOMONAS PAUCIMOBILIS , GNR; 04/28 Bx Neg to date Afebrile No leukocytosis FTT Generalized weakness -CT head: No acute intracranial abnormality. Global parenchymal atrophy and chronic microvascular ischemic changes. HTN Plan: - On Cefazolin #2 by Primary - 05/01/20 SP c Ceftriaxone #6 - 04/30/20 SP IV vancomycin #5 pending Bcx -f/u cx -Monitor CBC/CMP, temperatures D/w RN Thank you for consulting [facility]. Will continue to follow along with you. Subjective Allergies: Coded Allergies: No Known Allergies (Unverified , 04/26/20) Afebrile No Leukocytosis Satting well on RA Objective Last 24 Hour Vital Signs Date Time Temp Pulse Resp B/P (MAP) Pulse Ox O2 Delivery O2 Flow Rate FiO2 05/04/20 08:42 143/75 05/04/20 08:42 81 143/75 05/04/20 08:00 Room Air Room Air 05/04/20 04:00 Room Air Room Air 05/04/20 04:00 97.3 20 124/61 (82) 100 05/04/20 03:42 65 05/04/20 00:00 77 05/04/20 00:00 Room Air Room Air 05/04/20 00:00 98.1 20 120/60 (80) 100 05/03/20 20:00 97.9 20 121/65 (83) 100 05/03/20 20:00 Room Air Room Air 05/03/20 19:35 83 05/03/20 16:17 74 05/03/20 16:00 Room Air Room Air 05/03/20 15:55 97.1 79 20 156/74 100 Nasal Cannula 3 05/03/20 15:40 78 20 165/66 100 Nasal Cannula 3 05/03/20 15:25 79 24 161/70 100 Simple Mask 6 05/03/20 15:15 78 24 124/87 100 Simple Mask 6 05/03/20 15:05 81 23 164/64 100 Simple Mask 6 05/03/20 15:01 95 16 100 05/03/20 15:00 84 24 146/69 100 Simple Mask 6 05/03/20 14:57 97.0 93 21 166/78 100 Simple Mask 6 05/03/20 12:00 72 05/03/20 12:00 98.2 71 19 129/72 (91) 100 71 05/03/20 12:00 Room Air Height (Feet): 5 Height (Inches): 2.00 Weight (Pounds): 141 GENERAL: NAD, on RA LUNGS: Equal rise and fall of chest B/L ABDOMEN: soft, Nondistended. EXTREMITIES: No cyanosis, clubbing, or edema. Microbiology Date/Time Source Procedure Growth Status 05/03/20 09:38 Nasopharynx SARS-CoV-2 RdRp Gene Assay - Final Complete Laboratory Tests Test 05/04/20 04:54 White Blood Count 5.9 K/UL (4.8-10.8) Red Blood Count 3.51 M/UL (4.20-5.40) L Hemoglobin 11.4 G/DL (12.0-16.0) L Hematocrit 33.4 % (37.0-47.0) L Mean Corpuscular Volume 95 FL (80-99) Mean Corpuscular Hemoglobin 32.6 PG (27.0-31.0) H Mean Corpuscular Hemoglobin Concent 34.3 G/DL (32.0-36.0) Red Cell Distribution Width 12.2 % (11.6-14.8) Platelet Count 148 K/UL (150-450) L Mean Platelet Volume 6.5 FL (6.5-10.1) Neutrophils (%) (Auto) 56.5 % (45.0-75.0) Lymphocytes (%) (Auto) 31.9 % (20.0-45.0) Monocytes (%) (Auto) 7.6 % (1.0-10.0) Eosinophils (%) (Auto) 3.4 % (0.0-3.0) H Basophils (%) (Auto) 0.7 % (0.0-2.0) Sodium Level 142 MMOL/L (136-145) Potassium Level 4.3 MMOL/L (3.5-5.1) Chloride Level 109 MMOL/L (98-107) H Carbon Dioxide Level 22 MMOL/L (21-32) Anion Gap 11 mmol/L (5-15) Blood Urea Nitrogen 12 mg/dL (7-18) Creatinine 0.7 MG/DL (0.55-1.30) Estimat Glomerular Filtration Rate > 60 mL/min (>60) Glucose Level 102 MG/DL (74-106) Calcium Level 8.6 MG/DL (8.5-10.1) Current Medications Medications (Trade) Dose Ordered Sig/Carl Route PRN Reason Start Time Stop Time Status Last Admin Dose Admin Acetaminophen (Tylenol) 650 mg Q4H PRN ORAL Mild Pain (Pain Scale 1-3) 04/26/20 18:30 05/26/20 18:29 05/03/20 21:16 Acetaminophen (Tylenol) 650 mg Q6H PRN ORAL Temp >100.5 05/03/20 15:00 06/02/20 14:59 Acetaminophen/ Codeine Phosphate (Tylenol #3) 1 tab Q4H PRN ORAL Moderate Pain (Pain Scale 4-6) 05/03/20 15:00 05/10/20 14:59 Alendronate Sodium (Fosamax) 70 mg ONCE A WEEK ORAL 04/28/20 06:30 05/28/20 06:29 04/28/20 06:16 Amitriptyline HCl (Elavil) 10 mg BEDTIME ORAL 04/27/20 21:00 05/27/20 20:59 05/03/20 21:15 Amlodipine Besylate (Norvasc) 10 mg DAILY ORAL 04/28/20 09:00 05/28/20 08:59 05/04/20 08:42 Amylase/Lipase/ Protease (Jarret DR 36,000 units cap) 1 ea BEFORE MEALS ORAL 04/27/20 16:30 07/26/20 16:29 05/04/20 06:27 Aspirin (ASA) 81 mg DAILY ORAL 04/28/20 09:00 06/12/20 08:59 05/04/20 08:41 Baclofen (Lioresal) 10 mg DAILYPRN PRN ORAL Muscle Spasm 04/27/20 12:15 05/27/20 12:14 Bethanechol Chloride (Urecholine) 25 mg THREE TIMES A DAY ORAL 04/27/20 13:00 05/27/20 12:59 05/04/20 08:42 Cefazolin Sodium 1 gm/Dextrose 55 ml @ 110 mls/hr Q8HR IVP 05/03/20 22:00 05/10/20 21:59 05/04/20 06:27 Dextrose/ Electrolytes 1,000 ml @ 50 mls/hr Q20H IV 04/27/20 18:00 05/27/20 17:59 05/03/20 16:29 Heparin Sodium (Porcine) (Heparin 5000 units/ml) 5,000 units EVERY 12 HOURS SUBQ 04/26/20 21:00 06/10/20 20:59 05/03/20 21:17 Linaclotide (Linzess) 290 mcg DAILY ORAL 04/27/20 14:00 07/26/20 13:59 05/04/20 08:42 Lorazepam (Ativan) 0.5 mg Q8H PRN ORAL For Anxiety 04/27/20 11:45 05/04/20 11:44 Losartan Potassium (Cozaar) 50 mg DAILY ORAL 04/28/20 09:00 05/28/20 08:59 05/04/20 08:42 Memantine (Namenda) 10 mg DAILY ORAL 04/28/20 09:00 05/28/20 08:59 05/04/20 08:42 Morphine Sulfate (Morphine Sulfate) 2 mg Q1H PRN IVP Severe Pain (Pain Scale 7-10) 05/03/20 15:00 05/10/20 14:59 Ondansetron HCl (Zofran) 4 mg Q6H PRN IVP Nausea & Vomiting 05/03/20 15:00 06/02/20 14:59 Pantoprazole (Protonix) 40 mg EVERY 12 HOURS ORAL 04/27/20 21:00 05/27/20 20:59 05/04/20 08:42 Trazodone HCl (Desyrel) 50 mg BEDTIME ORAL 04/27/20 21:00 05/27/20 20:59 05/03/20 21:15 Rolando Márquez MD May 04, 2020 11:08
--- NOTE | 2020-05-04 13:46 | Nephrology Progress Note ---
Assessment/Plan Problem List: (1) Electrolyte imbalance (2) Dehydration (3) Failure to thrive (4) UTI (urinary tract infection) Assessment Dehydration, hypokalemia UTI Failure to thrive History of diabetes mellitus History of hypertension Plan May 04: Late note entry. Patient seen 9 AM today. Labs reviewed. Post pacemaker. Stable from renal standpoint of view. May 03: Labs reviewed. Electrolytes and renal parameters stable. Patient transferred to [facility]. Continue per cardiology advice. May 02: Labs reviewed. Renal parameters stable. Patient is currently in ICU due to arrhythmia and pauses on rhythm strip that was detected yesterday. Patient is being considered to have a pacemaker by corn cutter operator. Stable from renal standpoint of view. April 30: Status quo. Stable from renal standpoint of view. April 29: Renal parameters stable. Blood pressure stable. Medication list reviewed. Deviously: Slow hydration Adjust blood pressure medication with proper parameters Potassium supplement Monitor electrolytes Per consultants Subjective ROS Limited/Unobtainable: No Constitutional: Reports: malaise Objective Objective Last 24 Hour Vital Signs Date Time Temp Pulse Resp B/P (MAP) Pulse Ox O2 Delivery O2 Flow Rate FiO2 05/04/20 08:42 143/75 05/04/20 08:42 81 143/75 05/04/20 08:00 98.1 16 143/75 (97) 100 05/04/20 08:00 77 05/04/20 08:00 Room Air Room Air 05/04/20 04:00 Room Air Room Air 05/04/20 04:00 97.3 20 124/61 (82) 100 05/04/20 03:42 65 05/04/20 00:00 77 05/04/20 00:00 Room Air Room Air 05/04/20 00:00 98.1 20 120/60 (80) 100 05/03/20 20:00 97.9 20 121/65 (83) 100 05/03/20 20:00 Room Air Room Air 05/03/20 19:35 83 05/03/20 16:17 74 05/03/20 16:00 Room Air Room Air 05/03/20 15:55 97.1 79 20 156/74 100 Nasal Cannula 3 05/03/20 15:40 78 20 165/66 100 Nasal Cannula 3 05/03/20 15:25 79 24 161/70 100 Simple Mask 6 05/03/20 15:15 78 24 124/87 100 Simple Mask 6 05/03/20 15:05 81 23 164/64 100 Simple Mask 6 05/03/20 15:01 95 16 100 05/03/20 15:00 84 24 146/69 100 Simple Mask 6 05/03/20 14:57 97.0 93 21 166/78 100 Simple Mask 6 Intake and Output 05/03/20 05/04/20 19:00 07:00 Intake Total 1385 ml 755 ml Balance 1385 ml 755 ml Intake Oral 110 ml 100 ml IV Total 1275 ml 655 ml # Voids 2 3 Laboratory Tests 05/04/20 04:54: White Blood Count 5.9, Red Blood Count 3.51L, Hemoglobin 11.4L, Hematocrit 33.4L , Mean Corpuscular Volume 95, Mean Corpuscular Hemoglobin 32.6H, Mean Corpuscular Hemoglobin Concent 34.3, Red Cell Distribution Width 12.2, Platelet Count 148L, Mean Platelet Volume 6.5, Neutrophils (%) (Auto) 56.5, Lymphocytes (%) (Auto) 31.9, Monocytes (%) (Auto) 7.6, Eosinophils (%) (Auto) 3.4H, Basophils (%) (Auto) 0.7, Sodium Level 142, Potassium Level 4.3, Chloride Level 109H, Carbon Dioxide Level 22, Anion Gap 11, Blood Urea Nitrogen 12, Creatinine 0.7, Estimat Glomerular Filtration Rate > 60, Glucose Level 102, Calcium Level 8.6 Height (Feet): 5 Height (Inches): 2.00 Weight (Pounds): 141 General Appearance: no apparent distress Objective No change Maximilian Guillen MD May 04, 2020 13:46
--- NOTE | 2020-05-04 14:11 | Diagnostic Imaging Report ---
INDICATION: Pain, intraoperative TECHNIQUE: Intraoperative imaging Fluoroscopy time: 98.4 seconds Total dose: [id number] mGym2 Total number of images: One COMPARISON: None FINDINGS: Intraoperative images document placement of a a left chest pacemaker, lead tips in the expected region of the right atrium and right ventricular apex. IMPRESSION: Intraoperative imaging, as described
--- NOTE | 2020-05-05 20:08 | Cardiology Report ---
APPROVED REPORT EKG Measurement Heart [id number] <Conclusion> Normal sinus rhythm T wave abnormality, consider anterolateral ischemia Abnormal ECG
--- NOTE | 2020-05-06 09:15 | Discharge Summary ---
Discharge Summary Discharge Summary _ DATE OF ADMISSION: 04/26/2020 DATE OF DISCHARGE: 05/04/2020 DISCHARGED BY: Dr. Calvin REASON FOR ADMISSION: [] 85 years old female with past medical history of hypertension , presented to emergency department with 2 weeks of generalized weakness. Symptoms become progressively worse over the last week. She reported not eating well . She felt dehydrated. She reported taking medication for blood pressure . No fever or chills. No nausea, vomiting or diarrhea. She reported generalized weakness and inability le to get around the house. No pain. Upon evaluation vital signs were stable. Chest x-ray revealed no acute cardiopulmonary pathology. Rapid COVID-19 was negative. Stable electrolytes and renal parameters. Glucose 127. Lactic acid 0.9. Stable LFT. Troponin negative , pro BNP 319. EKG revealed sinus rhythm , no acute ischemic changes. Albumin 4.3. Urinalysis revealed +3 leukocyte esterase , pyuria and occasional bacteria; +[address] of the head revealed no acute intracranial abnormality. Chronic microvascular ischemic changes and atrophy noted. Patient received empiric antibiotic and admitted for further management. CONSULTANTS: sheep sorter ID specialist Dr. Mosley GI specialist Dr. De La Cruz bliss press operator Dr. Guillen manufacturing maintenance mechanic/oncologist Dr. Martinez psychiatrist Dr. Flores [facility]SE: Patient admitted and started on IV fluids and empiric antibiotics. Echocardiogram revealed preserved ejection fraction 60 to 65%. No evidence of left ventricular hypertrophy. No evidence of wall motion abnormality. Right ventricular systolic pressure of 20. Repeated troponin x2 were negative as well. Patient was ruled out for acute myocardial infarction. Telemetry showed multiply very long pauses more than 7 seconds , Thyroid function was within normal limits. Patient was off beta-cole and clonidine for over 5 days, but continued to have similar long pauses. Patient was transferred to ICU and had transcutaneous pacing patches. Patient subsequently undergone on placement of dual-chamber permanent pacemaker. Pacemaker was programmed to lower rate of 60 and upper rate of 120. Chest x-ray postprocedure revealed dual lead pacemaker in the right atrial and right ventricle. Pacemaker interrogated and showed normal functioning. Blood pressure was managed managed with the low-dose of Cozaar and remained stable. DVT prophylaxis provided. Patient was slowly hydrated. Renal parameters and electrolytes were closely monitored. Electrolytes corrected as needed. Nephrotoxic's were avoided. Prior to discharge all electrolytes stable. Creatinine remained stable. Hemoglobin A1c 5.7. Patient passed bedside swallow evaluation. Diet texture provided as per speech therapist recommendation. Patient was followed -up with calorie count. Aspiration precaution maintained. Urine culture revealed E. coli and diphtheroids. Rapid COVID-19 in ED was negative . Blood culture revealed finger Monus, repeated blood culture were negative. Initial bacteremia was most likely contaminant. Patient undergone treatment for UTI . Mild leukocytosis resolved, no fevers. Psychiatrist closely followed. Psychiatric medication regimen was optimized. Cognitive behavioral therapy provided. Patient clinically stabilized and was ready for discharge home with home health services. FINAL DIAGNOSES: Sick Sinus Syndrome Status post dual-chamber permanent pacemaker implantation 05/03 Hypertension Electrolyte imbalance Dehydration UTI Dehydration Major depressive disorder mild, recurrent with psychotic features DISCHARGE MEDICATIONS: See Medication Reconciliation list. DISCHARGE INSTRUCTIONS: Patient was discharged home with home health services. Follow up with primary care provider in one week. Patient to follow-up with a sheep sorter in 1 to 2 weeks. I have been assigned to dictate discharge summary for this account. I was not involved in the patient's management. Lila Montoya NP May 06, 2020 09:15
== END 2020-05-04 11:26 | disposition home health service (06) | DRG 982 ==
LOC: EDBD 14:57 → EMR 15:36 → 2E 15:39 → EDBEDREQ 17:02 → 2E 04-29 16:43 → ICU 05-01 09:13 → 2W 05-02 19:50
DX: N39.0 Urinary tract infection, site not specified (principal); F33.3 Major depressive disorder, recurrent, severe with psychotic symptoms; I49.5 Sick sinus syndrome; E86.0 Dehydration; R62.7 Adult failure to thrive; E11.9 Type 2 diabetes mellitus without complications; I10 Essential (primary) hypertension; E87.6 Hypokalemia; Z79.82 Long term (current) use of aspirin; D63.8 Anemia in other chronic diseases classified elsewhere; I49.8 Other specified cardiac arrhythmias; E87.8 Other disorders of electrolyte and fluid balance, not elsewhere classified; Z68.25 Body mass index [BMI] 25.0-25.9, adult
CPT/HCPCS: 36415; 70450; 71045; 76000; 80048; 80053; 80061; 80076; 80202; 81003; 82248; 82378; 82550; 82607; 82728; 82746; 82977; 83036; 83605; 83615; 83690; 83735; 83880; 84100; 84439; 84443; 84484; 84550; 85025; 85379; 85610; 85651; 85730; 86140; 87040; 87086; 87181; 93005; 93306; 93970; 94003; 94150; 96361; 96365; 99285; J2250; J7030; J8499; U0002